=== PATIENT | female | born 1990 | race Caucasian/White ===

== ENCOUNTER 2016-06-11 08:21 | Emergency (ER) | payer MEDICAID, OTHER ==
[2016-06-11 08:37] VITALS: TEMP 97.4
--- NOTE | 2016-06-11 08:48 | ED.PDOC ---
History of Present Illness - General Chief Complaint: Respiratory Problem Stated Complaint: cough,congestion Time Seen by Provider: 06/11/16 08:42 Source: patient Additional Information: PT REPORTS 1 MONTH HISTORY OF COUGH/SOB DESPITE TWO ROUNDS OF ANTIBIOTICS PRESCRIBED BY HER PCP. PT DENIES FEVER, CHILLS, CHEST PAIN. - History of Present Illness Timing/Duration: getting worse Possible Cause: smoke exposure Improving Factors: nothing Associated Symptoms: cough, shortness of breath Allergies/Adverse Reactions: Allergies Penicillins Allergy (Verified 01/17/16 10:49) Home Medications: Ambulatory Orders Albuterol Sulfate Nebs [Proventil Nebs] 2.5 mg INH Q4HR PRN #90 vial 06/11/16 [place] Carbonate 300 mg PO TID 06/11/16 Prednisone 50 mg PO DAILY #5 tab 06/11/16 Sertraline HCl [Zoloft] 50 mg PO DAILY 06/11/16 Trazodone HCl 50 mg PO BEDTIME 06/11/16 Review of Systems - Review of Systems Constitutional: Denies: chills, fever EENTM: Denies: nose congestion, throat pain Respiratory: States: see HPI, cough, short of breath Cardiology: Denies: chest pain, palpitations Gastrointestinal/Abdominal: Denies: abdominal pain, diarrhea, nausea Musculoskeletal: Denies: joint pain, joint swelling Skin: Denies: change in color, lesions Neurological: Denies: headache, numbness Past Medical History (General) - Patient Medical History Hx Seizures: No Hx Stroke: No Hx Dementia: No Hx Asthma: No Hx of COPD: No Hx Cardiac Disorders: No Hx Congestive Heart Failure: No Hx Pacemaker: No Hx Hypertension: No Hx Thyroid Disease: No Hx Diabetes: No Hx Gastroesophageal Reflux: No Hx Renal Disease: No Hx Cancer: No Hx of HIV: No Hx Hepatitis C: No Hx MRSA: No - Vaccination History Hx Tetanus, Diphtheria Vaccination: No Hx Influenza Vaccination: No Hx Pneumococcal Vaccination: No - Social History Hx Tobacco Use: Yes - 1/2PPD Hx Chewing Tobacco Use: No Hx Alcohol Use: No Hx Substance Use: No Hx Substance Use Treatment: No Hx Depression: No Hx Physical Abuse: No Hx Emotional Abuse: No Hx Suspected Abuse: No - Female History Patient is a Female of Child Bearing Age (10 -59 yrs old): Yes Hx Last Menstrual Period: 04/27/14 Patient : No Expected Date of Delivery:: 01/22/15 Family Medical History - Family History Maternal Grandparents Family History: No Known Living Status: Still Living Hx Family Hypertension: Yes Hx Family Diabetes: Yes - type 2 Hx Family;Other: Pt has no other known historys Mother Family History: No Known Physical Exam - Physical Exam General Appearance: Alert, Comfortable Eye Exam: bilateral normal ENT Exam: normal ENT inspection Neck: full range of motion, supple Respiratory: other - COARSE BREATH SOUNDS THROUGHOUT Cardiovascular/Chest: regular rate, rhythm, no murmur Gastrointestinal/Abdominal: non tender, soft Extremity: normal inspection Neurologic: normal mood/affect, oriented x 3 Skin Exam: normal color, warm/dry Progress - Progress Progress: 06/11/16 09:25 PT REPORTS SIGNIFICANT IMPROVEMENT IN SYMPTOMS AFTER DUONEB IN THE ED. PT COUNSELED ABOUT SMOKING CESSATION. PT AGREES TO ATTEMPT TO QUIT SMOKING. Departure - Departure Clinical Impression: Acute bronchitis, Tobacco abuse Time of Disposition: 09:29 Disposition: Discharge to Home or Self Care Condition: Good Departure Forms: ED Discharge - Pt. Copy Instructions: DI for Acute Bronchitis Diet: resume usual diet Activity: increase activity as tolerated Prescriptions: Albuterol Sulfate Nebs [Proventil Nebs] 2.5 mg INH Q4HR PRN #90 vial PRN Reason: Shortness Of Breath/Wheezing Prednisone 50 mg PO DAILY #5 tab Home Medications: Ambulatory Orders Albuterol Sulfate Nebs [Proventil Nebs] 2.5 mg INH Q4HR PRN #90 vial 06/11/16 [place] Carbonate 300 mg PO TID 06/11/16 Prednisone 50 mg PO DAILY #5 tab 06/11/16 Sertraline HCl [Zoloft] 50 mg PO DAILY 06/11/16 Trazodone HCl 50 mg PO BEDTIME 06/11/16
--- NOTE | 2016-06-11 09:03 | RAD ---
Study: Frontal and Lateral Views of the Chest. Indication: COUGH/SOB Comparison: None Impression: Heart size normal. Lungs hyper expanded but clear. No acute osseous abnormality. Electronically signed by: Clark Duffy MD 06/11/2016 09:01
[2016-06-11] MEDS: IPRATROPIUM/ALBUTEROL 3 ML VIAL NEB ONE (09:15)
[2016-06-11] MEDS: methylPREDNISolone SODIUM SUC 125 MG/2 ML VIAL IM ONE (09:41)
[2016-06-11 09:55] VITALS: BP 118/70; O2SAT 98
== END 2016-06-11 09:50 | disposition home or self-care (01) ==
LOC: ER 08:21
DX: J20.9 Acute bronchitis, unspecified (principal); F17.200 Nicotine dependence, unspecified, uncomplicated; Z88.0 Allergy status to penicillin; Z79.899 Other long term (current) drug therapy
CPT/HCPCS: 71020; 94640; J2930; J7620

== ENCOUNTER 2016-06-25 08:55 | Emergency (ER) | payer OTHER ==
[2016-06-25] MEDS ORDERED: IPRATROPIUM/ALBUTEROL 3 ML VIAL NEB ONE (10:34)
--- NOTE | 2016-06-25 10:38 | ED.PDOC ---
History of Present Illness - General Chief Complaint: Respiratory Problem Stated Complaint: Increased Difficulty breathing x 1 week; Headache Time Seen by Provider: 06/25/16 10:26 Source: patient, RN notes reviewed, Vital Signs reviewed Exam Limitations: no limitations - History of Present Illness Initial Comments: Patient is a 25 y/o female who has had a cough and shortness of breath x 1 month. She is worsening. She has been on several antibiotics with no improvement. She does smoke. No history of asthma. She did not get a flu shot this year. Timing/Duration: getting worse, other - 1 month Severity: moderate Improving Factors: nothing Worsening Factors: nothing Associated Symptoms: cough, fever/chills, headaches Allergies/Adverse Reactions: Allergies Penicillins Allergy (Verified 01/17/16 10:49) Home Medications: Ambulatory Orders Albuterol Sulfate Nebs [Proventil Nebs] 2.5 mg INH Q4HR PRN #90 vial 06/11/16 [place] Carbonate 300 mg PO TID 06/11/16 Sertraline HCl [Zoloft] 50 mg PO DAILY 06/11/16 Trazodone HCl 50 mg PO BEDTIME 06/11/16 Albuterol Sulfate [Proair Hfa] 2 puff INH Q4H PRN #1 06/25/16 Benzonatate 200 mg PO TID PRN #30 cap 06/25/16 Methylprednisolone [Medrol Dose Jerrell] 4 mg PO DAILY #1 pack 06/25/16 Review of Systems - Review of Systems Constitutional: States: chills, fever EENTM: States: nose congestion, throat pain Respiratory: States: cough, short of breath, wheezing Cardiology: States: no symptoms reported Gastrointestinal/Abdominal: States: nausea Genitourinary: States: no symptoms reported Musculoskeletal: States: no symptoms reported Skin: States: no symptoms reported Neurological: States: headache Endocrine: States: no symptoms reported Hematologic/Lymphatic: States: no symptoms reported All other Systems: Reviewed and Negative Past Medical History (General) - Patient Medical History Hx Seizures: No Hx Stroke: No Hx Dementia: No Hx Asthma: No Hx of COPD: No Hx Cardiac Disorders: No Hx Congestive Heart Failure: No Hx Pacemaker: No Hx Hypertension: No Hx Thyroid Disease: No Hx Diabetes: No Hx Gastroesophageal Reflux: No Hx Renal Disease: No Hx Cancer: No Hx of HIV: No Hx Hepatitis C: No Hx MRSA: No Surgical History: noncontributory - Vaccination History Hx Tetanus, Diphtheria Vaccination: No Hx Influenza Vaccination: No Hx Pneumococcal Vaccination: No Immunizations Up to Date: Yes - Social History Hx Tobacco Use: Yes Hx Chewing Tobacco Use: No Hx Alcohol Use: No Hx Substance Use: No Hx Substance Use Treatment: No Hx Depression: No Feels Threatened In Home Enviroment: No Feels Threatened In a Relationship: No Hx Physical Abuse: No Hx Emotional Abuse: No Hx Suspected Abuse: No - Activities of Daily Living Hospice Agency (if applicable):: None - Female History Patient is a Female of Child Bearing Age (10 -59 yrs old): Yes Hx Last Menstrual Period: 04/27/14 Patient : No Expected Date of Delivery:: 01/22/15 Family Medical History - Family History Maternal Grandparents Family History: No Known Living Status: Still Living Hx Family Hypertension: Yes Hx Family Diabetes: Yes - type 2 Hx Family;Other: Pt has no other known historys Mother Family History: No Known Physical Exam - Physical Exam General Appearance: Alert, Comfortable, No apparent distress Eye Exam: bilateral normal Ears, Nose, Throat: hearing grossly normal, normal ENT inspection Neck: full range of motion, lymphadenopathy (R), lymphadenopathy (L) Respiratory: no respiratory distress, no accessory muscle use, decreased breath sounds, wheezing Cardiovascular/Chest: regular rate, rhythm, no edema, no gallop, no murmur Gastrointestinal/Abdominal: normal bowel sounds, non tender, soft, no organomegaly Back Exam: normal inspection Extremity: normal range of motion, non-tender, normal inspection, no pedal edema Neurologic: alert, normal mood/affect, oriented x 3 Skin Exam: normal color, warm/dry Progress - Results/Orders Results/Orders: 06/25/16 09:20 Temperature 98.6 F Pulse Rate [L 76 Arm] Respiratory 18 Rate Blood Pressure 128/78 [R Arm] O2 Sat by Pulse 96 Oximetry 06/25/16 09:18 STREP A SCREEN - NEG Influenza A and B - NEG 06/25/16 10:35 Chest,2 Views [RAD] Stat - EKG/XRAY/CT XRAY: chest Xray Comments: Clear CT Ordered: No CT Interpretation Call Back: No Departure - Departure Clinical Impression: Upper respiratory infection Qualifiers: URI type: unspecified viral URI Qualifier Code: (J06.9) Acute upper respiratory infection, unspecified Reactive airway disease Qualifiers: Asthma severity: mild intermittent Asthma complication type: uncomplicated Qualifier Code: (J45.20) Mild intermittent asthma, uncomplicated Time of Disposition: 11:54 Disposition: Discharge to Home or Self Care Condition: Fair Departure Forms: ED Discharge - Pt. Copy, Patient Portal Self Enrollment Instructions: Reactive Airway Disease-Adult, DI for Reactive Airway Disease- Adult Diet: resume usual diet Prescriptions: Benzonatate 200 mg PO TID PRN #30 cap PRN Reason: Cough Methylprednisolone [Medrol Dose Jerrell] 4 mg PO DAILY #1 pack Albuterol Sulfate [Proair Hfa] 2 puff INH Q4H PRN #1 PRN Reason: Difficulty Breathing Home Medications: Ambulatory Orders Albuterol Sulfate Nebs [Proventil Nebs] 2.5 mg INH Q4HR PRN #90 vial 06/11/16 [place] Carbonate 300 mg PO TID 06/11/16 Sertraline HCl [Zoloft] 50 mg PO DAILY 06/11/16 Trazodone HCl 50 mg PO BEDTIME 06/11/16 Albuterol Sulfate [Proair Hfa] 2 puff INH Q4H PRN #1 06/25/16 Benzonatate 200 mg PO TID PRN #30 cap 06/25/16 Methylprednisolone [Medrol Dose Jerrell] 4 mg PO DAILY #1 pack 06/25/16 Additional Instructions: Follow up with PCP if symptoms persist or ED if symptoms worsen.
--- NOTE | 2016-06-25 11:23 | RAD ---
EXAM DESCRIPTION: XR CHEST 2 VIEWS CLINICAL HISTORY: cough/shortness of breath COMPARISON: June 11, 2016 TECHNIQUE: PA/lateral FINDINGS: There is no cardiac or pulmonary abnormality. The lungs are clear. There is no effusion. IMPRESSION: 1. Normal two-view chest Electronically signed by: Teddy Chandra MD 06/25/2016 11:21
[2016-06-25] MEDS ORDERED: methylPREDNISolone SODIUM SUC 125 MG/2 ML VIAL IM ONE (11:51)
[2016-06-25 12:50] VITALS: BP 109/72; TEMP 99.2; O2SAT 91
== END 2016-06-25 11:30 | disposition home or self-care (01) ==
LOC: ER 08:55
DX: J45.20 Mild intermittent asthma, uncomplicated (principal); J06.9 Acute upper respiratory infection, unspecified; F17.200 Nicotine dependence, unspecified, uncomplicated; Z83.3 Family history of diabetes mellitus; Z82.49 Family history of ischemic heart disease and other diseases of the circulatory system; Z79.899 Other long term (current) drug therapy; Z88.0 Allergy status to penicillin
CPT/HCPCS: 71020; 87070; 87502; 87651; 94640; J2930; J7620

== ENCOUNTER 2016-12-17 10:00 | Emergency (ER) | payer MEDICAID ==
[2016-12-17 10:16] VITALS: TEMP 98.6
[2016-12-17] MEDS ORDERED: NEOMYCIN-BACITRACIN-POLYMYXIN 0.9 GM UD TOP ONE (11:06)
--- NOTE | 2016-12-17 11:06 | ED.PDOC ---
History of Present Illness - General Chief Complaint: Laceration Stated Complaint: laceration Time Seen by Provider: 12/17/16 11:00 Source: patient Exam Limitations: no limitations - History of Present Illness Initial Comments: Karne Marmolejo 26 y/o female stated accidentally injure left index finger with knife cutting veggies at home. Timing/Duration: just prior to arrival Severity: mild Location: none - left index finger Improving Factors: nothing Worsening Factors: movement Associated Symptoms: denies symptoms Allergies/Adverse Reactions: Allergies Penicillins Allergy (Verified 12/17/16 10:16) Home Medications: Ambulatory Orders Albuterol Sulfate Nebs [Proventil Nebs] 2.5 mg INH Q4HR PRN #90 vial 06/11/16 [place] Carbonate 300 mg PO TID 06/11/16 Sertraline HCl [Zoloft] 50 mg PO DAILY 06/11/16 Trazodone HCl 50 mg PO BEDTIME 06/11/16 Albuterol Sulfate [Proair Hfa] 2 puff INH Q4H PRN #1 06/25/16 Benzonatate 200 mg PO TID PRN #30 cap 06/25/16 Methylprednisolone [Medrol Dose Jerrell] 4 mg PO DAILY #1 pack 06/25/16 Review of Systems - Review of Systems Constitutional: States: no symptoms reported EENTM: States: no symptoms reported Respiratory: States: no symptoms reported Cardiology: States: no symptoms reported Gastrointestinal/Abdominal: States: no symptoms reported Genitourinary: States: no symptoms reported Musculoskeletal: States: no symptoms reported Skin: States: see HPI Past Medical History (General) - Patient Medical History Hx Seizures: No Hx Stroke: No Hx Dementia: No Hx Asthma: No Hx of COPD: No Hx Cardiac Disorders: No Hx Congestive Heart Failure: No Hx Pacemaker: No Hx Hypertension: No Hx Thyroid Disease: No Hx Diabetes: No Hx Gastroesophageal Reflux: No Hx Renal Disease: No Hx Cancer: No Hx of HIV: No Hx Hepatitis C: No Hx MRSA: No Surgical History: no surgical history - Vaccination History Hx Tetanus, Diphtheria Vaccination: No Hx Influenza Vaccination: No Hx Pneumococcal Vaccination: No - Social History Hx Tobacco Use: Yes - uses vapor cigarette Hx Chewing Tobacco Use: No Hx Alcohol Use: No Hx Substance Use: No Hx Substance Use Treatment: No Hx Depression: No Hx Physical Abuse: No Hx Emotional Abuse: No Hx Suspected Abuse: No - Activities of Daily Living Hospice Agency (if applicable):: None - Female History Patient is a Female of Child Bearing Age (10 -59 yrs old): Yes Hx Last Menstrual Period: 12/03/16 Patient : No Family Medical History - Family History Maternal Grandparents Family History: No Known Living Status: Still Living Hx Family Hypertension: Yes Hx Family Diabetes: Yes - type 2 Hx Family;Other: Pt has no other known historys Mother Family History: No Known Physical Exam - Physical Exam General Appearance: Alert, Comfortable, No apparent distress Eyes, Ears, Nose, Throat Exam: PERRL/EOMI, normal ENT inspection Neck: non-tender Cardiovascular/Chest: normal peripheral pulses, regular rate, rhythm, no murmur Respiratory: chest non-tender, lungs clear Gastrointestinal/Abdominal: non tender, soft Extremity: normal range of motion, non-tender Skin Exam: warm/dry, normal color Skin Problem Location: other - finger index left Skin Character: other - superficial laceration skin Lymphatic: no adenopathy Progress - Results/Orders Results/Orders: wound cleanse with antiseptic applied xerofoam bandage covererd with 2x2 wrapped with coban Departure - Departure Clinical Impression: Minor skin laceration Time of Disposition: 11:22 Disposition: Discharge to Home or Self Care Condition: Good Departure Forms: ED Discharge - Pt. Copy, Patient Portal Self Enrollment Instructions: Minor Wounds (Alternative Therapy) Referrals: Guillermo Aguilar MD [Primary Care Provider] - 1-2 Weeks Home Medications: Ambulatory Orders Albuterol Sulfate Nebs [Proventil Nebs] 2.5 mg INH Q4HR PRN #90 vial 06/11/16 [place] Carbonate 300 mg PO TID 06/11/16 Sertraline HCl [Zoloft] 50 mg PO DAILY 06/11/16 Trazodone HCl 50 mg PO BEDTIME 06/11/16 Albuterol Sulfate [Proair Hfa] 2 puff INH Q4H PRN #1 06/25/16 Benzonatate 200 mg PO TID PRN #30 cap 06/25/16 Methylprednisolone [Medrol Dose Jerrell] 4 mg PO DAILY #1 pack 06/25/16 Additional Instructions: Keep wound dressing for one week,replace if it gets wet or dirty
[2016-12-17] MEDS ORDERED: TETANUS,DIPHTHERIA,PERTUSSIS 1 EA SYG IM ONE (11:23)
[2016-12-17 11:47] VITALS: BP 143/65; O2SAT 99
== END 2016-12-17 11:48 | disposition home or self-care (01) ==
LOC: ER 10:00
DX: S61.211A Laceration without foreign body of left index finger without damage to nail, initial encounter (principal); F17.210 Nicotine dependence, cigarettes, uncomplicated; Z23 Encounter for immunization; Z79.899 Other long term (current) drug therapy; W26.0XXA Contact with knife, initial encounter; Y93.G1 Activity, food preparation and clean up; Y92.009 Unspecified place in unspecified non-institutional (private) residence as the place of occurrence of the external cause

== ENCOUNTER 2017-01-19 10:32 | Emergency (ER) | payer OTHER ==
--- NOTE | 2017-01-19 11:00 | ED.PDOC ---
History of Present Illness - General Chief Complaint: Abdominal Pain Stated Complaint: abdominal pain Time Seen by Provider: 01/19/17 10:55 Source: patient Exam Limitations: no limitations Additional Information: C/O N/V/D. - History of Present Illness Initial Comments: WATERY Timing/Duration: other - 3 DAYS Severity: moderate Associated Symptoms: loss of appetite Allergies/Adverse Reactions: Allergies Penicillins Allergy (Verified 01/19/17 10:48) Home Medications: Ambulatory Orders Albuterol Sulfate Nebs [Proventil Nebs] 2.5 mg INH Q4HR PRN #90 vial 06/11/16 [place] Carbonate 300 mg PO TID 06/11/16 Sertraline HCl [Zoloft] 50 mg PO DAILY 06/11/16 Trazodone HCl 50 mg PO BEDTIME 06/11/16 Albuterol Sulfate [Proair Hfa] 2 puff INH Q4H PRN #1 06/25/16 Benzonatate 200 mg PO TID PRN #30 cap 06/25/16 Methylprednisolone [Medrol Dose [place]] 4 mg PO DAILY #1 pack 06/25/16 Ciprofloxacin [Cipro] 500 mg PO BID #20 ml 01/19/17 Review of Systems - Review of Systems Constitutional: States: chills, other - DIZZINESS WITH STANDING. Denies: fever EENTM: States: no symptoms reported Respiratory: States: no symptoms reported Cardiology: States: no symptoms reported Gastrointestinal/Abdominal: States: abdominal pain, diarrhea, nausea, vomiting, other - WATERY STOOLS NO BLOOD, DIFFUSE ABD CRAMPING Genitourinary: States: no symptoms reported Musculoskeletal: States: no symptoms reported Skin: States: no symptoms reported Neurological: States: no symptoms reported Endocrine: States: no symptoms reported Past Medical History (General) - Patient Medical History Hx Seizures: No Hx Stroke: No Hx Dementia: No Hx Asthma: No Hx of COPD: No Hx Cardiac Disorders: No Hx Congestive Heart Failure: No Hx Pacemaker: No Hx Hypertension: No Hx Thyroid Disease: No Hx Diabetes: No Hx Gastroesophageal Reflux: No Hx Renal Disease: No Hx Cancer: No Hx of HIV: No Hx Hepatitis C: No Hx MRSA: No Surgical History: other - Vaccination History Hx Tetanus, Diphtheria Vaccination: No Hx Influenza Vaccination: No Hx Pneumococcal Vaccination: No - Social History Hx Tobacco Use: Yes - uses vapor cigarette Hx Chewing Tobacco Use: No Hx Alcohol Use: No Hx Substance Use: No Hx Substance Use Treatment: No Hx Depression: No Hx Physical Abuse: No Hx Emotional Abuse: No Hx Suspected Abuse: No - Female History Patient is a Female of Child Bearing Age (10 -59 yrs old): Yes Hx Last Menstrual Period: 12/03/16 Patient : No Expected Date of Delivery:: 01/22/15 - Triage Comment ED Triage Comment: LMP "two weeks ago" Family Medical History - Family History Maternal Grandparents Family History: No Known Living Status: Still Living Hx Family Hypertension: Yes Hx Family Diabetes: Yes - type 2 Hx Family;Other: Pt has no other known historys Mother Family History: No Known Physical Exam - Physical Exam General Appearance: Alert, Comfortable, No apparent distress Eye Exam: bilateral normal Ears, Nose, Throat: hearing grossly normal, other - DRY MUCOUS MEMBRANES Neck: non-tender Respiratory: lungs clear, normal breath sounds, no respiratory distress Cardiovascular/Chest: no murmur, tachycardia Gastrointestinal/Abdominal: non tender, soft, no organomegaly, other - HYPOACTIVE BS Back Exam: normal inspection, no CVA tenderness Extremity: normal range of motion, non-tender, normal inspection Neurologic: alert, oriented x 3 Skin Exam: normal color, warm/dry Lymphatic: no adenopathy Progress - Progress Progress: 01/19/17 12:34 FEELS MUCH BETTER, STOOL RESULTS PENDING 01/19/17 13:35 STILL FEELS MUCH BETTER. RESULTS REVIEWED WITH PT. Departure - Departure Clinical Impression: Colitis Time of Disposition: 13:35 Disposition: Discharge to Home or Self Care Condition: Excellent Departure Forms: ED Discharge - Pt. Copy, Patient Portal Self Enrollment Instructions: DI for Colitis Diet: full liquid diet Referrals: Guillermo Aguilar MD [Primary Care Provider] - 1-2 Weeks Prescriptions: Ciprofloxacin [Cipro] 500 mg PO BID #20 ml Home Medications: Ambulatory Orders Albuterol Sulfate Nebs [Proventil Nebs] 2.5 mg INH Q4HR PRN #90 vial 06/11/16 [place] Carbonate 300 mg PO TID 06/11/16 Sertraline HCl [Zoloft] 50 mg PO DAILY 06/11/16 Trazodone HCl 50 mg PO BEDTIME 06/11/16 Albuterol Sulfate [Proair Hfa] 2 puff INH Q4H PRN #1 06/25/16 Benzonatate 200 mg PO TID PRN #30 cap 06/25/16 Methylprednisolone [Medrol Dose Jerrell] 4 mg PO DAILY #1 pack 06/25/16 Ciprofloxacin [Cipro] 500 mg PO BID #20 ml 01/19/17
[2017-01-19] MEDS ORDERED: SODIUM CHLORIDE 0.9% 1000ML 1,000 ML IVS ONE (11:01)
[2017-01-19 12:40] VITALS: O2SAT 98
[2017-01-19 13:53] VITALS: BP 101/72; TEMP 97.6
== END 2017-01-19 13:53 | disposition home or self-care (01) ==
LOC: ER 10:32
DX: K52.9 Noninfective gastroenteritis and colitis, unspecified (principal); F17.210 Nicotine dependence, cigarettes, uncomplicated; Z88.0 Allergy status to penicillin
CPT/HCPCS: 36415; 80053; 81001; 83630; 85025; 87045; 87046; 87324; 87449; J7030

== ENCOUNTER 2017-02-19 13:43 | Emergency (ER) | payer OTHER ==
[2017-02-19 14:10] VITALS: TEMP 97.5
[2017-02-19] MEDS ORDERED: ONDANSETRON ODT 8 MG TAB SL ONE (14:11)
[2017-02-19] MEDS ORDERED: ALUMINUM & MAGNESIUM HYDROXIDE 30 ML UD PO ONE (14:11)
--- NOTE | 2017-02-19 14:38 | RAD ---
EXAM DESCRIPTION: Chest,2 Views CLINICAL HISTORY: cough 1 week COMPARISON: June 25, 2016 FINDINGS: Frontal and lateral views of the chest. Cardiac silhouette and pulmonary vascularity are within normal limits. Lungs are clear without focal consolidations. No pleural effusion. No pneumothorax. No acute osseous abnormality. IMPRESSION: No radiographic evidence of acute cardiopulmonary disease. Electronically signed by: Brian Sims MD 02/19/2017 2:36 PM CDT
[2017-02-19 14:42] VITALS: O2SAT 98
--- NOTE | 2017-02-19 15:18 | ED.PDOC ---
History of Present Illness - General Chief Complaint: Respiratory Problem Stated Complaint: cough and shortness of breath x1.5 weeks Time Seen by Provider: 02/19/17 13:59 Source: patient Exam Limitations: no limitations - History of Present Illness Initial Comments: the patient is a 26-year-old female presenting to the emergency room secondary to cough for the last 10 days. She also has thrown up twice in the last 2 days. She is not really feeling short of breath. She does get anxious when she coughs hard however. No syncope or near-syncope. No chest pain. She has not been smoking but she has been vaping. Timing/Duration: 1 week Severity: mild Improving Factors: nothing Worsening Factors: nothing Associated Symptoms: loss of appetite, malaise, nausea/vomiting Allergies/Adverse Reactions: Allergies Penicillins Allergy (Verified 01/19/17 10:48) Home Medications: Ambulatory Orders Albuterol Sulfate Nebs [Proventil Nebs] 2.5 mg INH Q4HR PRN #90 vial 06/11/16 [place] Carbonate 300 mg PO TID 06/11/16 Sertraline HCl [Zoloft] 50 mg PO DAILY 06/11/16 Trazodone HCl 50 mg PO BEDTIME 06/11/16 Albuterol Sulfate [Proair Hfa] 2 puff INH Q4H PRN #1 06/25/16 Benzonatate 200 mg PO TID PRN #30 cap 06/25/16 Methylprednisolone [Medrol Dose Jerrell] 4 mg PO DAILY #1 pack 06/25/16 Ciprofloxacin [Cipro] 500 mg PO BID #20 ml 01/19/17 Azithromycin 250 mg PO DAILY #5 tab 02/19/17 predniSONE [Prednisone] 20 mg PO DAILY #5 tab 02/19/17 Review of Systems - Review of Systems Constitutional: States: malaise EENTM: States: nose congestion Respiratory: States: cough, short of breath - mild Cardiology: States: no symptoms reported Gastrointestinal/Abdominal: States: nausea, vomiting Genitourinary: States: no symptoms reported Musculoskeletal: States: no symptoms reported Skin: States: no symptoms reported Neurological: States: anxiety Endocrine: States: no symptoms reported All other Systems: No Change from Baseline Past Medical History (General) - Patient Medical History Hx Seizures: No Hx Stroke: No Hx Dementia: No Hx Asthma: No Hx of COPD: No Hx Cardiac Disorders: No Hx Congestive Heart Failure: No Hx Pacemaker: No Hx Hypertension: No Hx Thyroid Disease: No Hx Diabetes: No Hx Gastroesophageal Reflux: No Hx Renal Disease: No Hx Cancer: No Hx of HIV: No Hx Hepatitis C: No Hx MRSA: No Surgical History: other - Vaccination History Hx Tetanus, Diphtheria Vaccination: No Hx Influenza Vaccination: No Hx Pneumococcal Vaccination: No - Social History Hx Tobacco Use: Yes - uses vapor cigarette Hx Chewing Tobacco Use: No Hx Alcohol Use: No Hx Substance Use: No Hx Substance Use Treatment: No Hx Depression: No Hx Physical Abuse: No Hx Emotional Abuse: No Hx Suspected Abuse: No - Female History Hx Last Menstrual Period: 12/03/16 Patient : No Expected Date of Delivery:: 01/22/15 Family Medical History - Family History Maternal Grandparents Family History: No Known Living Status: Still Living Hx Family Hypertension: Yes Hx Family Diabetes: Yes - type 2 Hx Family;Other: Pt has no other known historys Mother Family History: No Known Physical Exam - Physical Exam General Appearance: Alert, Comfortable, No apparent distress Eye Exam: bilateral normal Ears, Nose, Throat: hearing grossly normal, normal ENT inspection, normal pharynx Neck: non-tender, full range of motion, supple Respiratory: lungs clear, normal breath sounds, no respiratory distress, no accessory muscle use Cardiovascular/Chest: normal peripheral pulses, regular rate, rhythm, no edema Peripheral Pulses: radial,right: 2+, radial,left: 2+, dorsalis pedis,right: 2+, dorsalis pedis,left: 2+ Gastrointestinal/Abdominal: non tender, soft Rectal Exam: deferred Back Exam: normal inspection, no CVA tenderness Extremity: normal range of motion, non-tender, normal inspection, no pedal edema Neurologic: acute care surgeon II-XII nml as tested, alert, oriented x 3, other - poor eye contact Skin Exam: normal color Comments: Vital Signs - 24 hr 02/19/17 02/19/17 02/19/17 13:45 14:05 14:40 Temperature 97.5 F L Pulse Rate [ 81 81 left brachial] Respiratory 20 20 20 Rate Blood Pressure 108/77 107/66 [right brachial ] O2 Sat by Pulse 96 98 Oximetry Progress - Progress Progress: 02/19/17 15:19 the patient's a 26-year-old female presenting to the emergency room with what is most likely a bronchitis or laryngitis. It is most likely viral however we will cover for atypical bacterial pathogens with low doses of zithromycin. The patient will also be given 5 days of oral prednisone at 20 mg daily. She needs to increase her fluid intake. For the next 2 days she needs to reduce her lithium dose by half in the evening. ER warnings are given for any worsening. Maalox can be used for any gastritis symptoms. she should follow-up with her primary care doctor early next week. 02/19/17 15:23 - Results/Orders Results/Orders: x-ray of the chest shows no acute pathology. Departure - Departure Clinical Impression: Bronchitis Disposition: Discharge to Home or Self Care Condition: Fair Departure Forms: ED Discharge - Pt. Copy, Patient Portal Self Enrollment Instructions: DI for Acute Bronchitis Diet: regular diet Activity: increase activity as tolerated Referrals: Guillermo Aguilar MD [Primary Care Provider] - 1-2 Weeks Prescriptions: Azithromycin 250 mg PO DAILY #5 tab predniSONE [Prednisone] 20 mg PO DAILY #5 tab Home Medications: Ambulatory Orders Albuterol Sulfate Nebs [Proventil Nebs] 2.5 mg INH Q4HR PRN #90 vial 06/11/16 [place] Carbonate 300 mg PO TID 06/11/16 Sertraline HCl [Zoloft] 50 mg PO DAILY 06/11/16 Trazodone HCl 50 mg PO BEDTIME 06/11/16 Albuterol Sulfate [Proair Hfa] 2 puff INH Q4H PRN #1 06/25/16 Benzonatate 200 mg PO TID PRN #30 cap 06/25/16 Methylprednisolone [Medrol Dose Jerrell] 4 mg PO DAILY #1 pack 06/25/16 Ciprofloxacin [Cipro] 500 mg PO BID #20 ml 01/19/17 Azithromycin 250 mg PO DAILY #5 tab 02/19/17 predniSONE [Prednisone] 20 mg PO DAILY #5 tab 02/19/17 Additional Instructions: the patient's a 26-year-old female presenting to the emergency room with what is most likely a bronchitis or laryngitis. It is most likely viral however we will cover for atypical bacterial pathogens with low doses of zithromycin. The patient will also be given 5 days of oral prednisone at 20 mg daily. She needs to increase her fluid intake. For the next 2 days she needs to reduce her lithium dose by half in the evening. ER warnings are given for any worsening. Maalox can be used for any gastritis symptoms. she should follow-up with her primary care doctor early next week.
[2017-02-19 16:02] VITALS: BP 127/88
== END 2017-02-19 15:45 | disposition home or self-care (01) ==
LOC: ER 13:43
DX: J40 Bronchitis, not specified as acute or chronic (principal); F17.210 Nicotine dependence, cigarettes, uncomplicated; Z88.0 Allergy status to penicillin; Z79.899 Other long term (current) drug therapy

== ENCOUNTER 2017-03-17 11:48 | Emergency (ER) | payer OTHER ==
[2017-03-17] MEDS ORDERED: LACTATED RINGERS 1,000 ML IVS ONE (11:59)
[2017-03-17 12:01] VITALS: TEMP 98.8
--- NOTE | 2017-03-17 12:01 | ED.PDOC ---
History of Present Illness - General Chief Complaint: Back Pain or Injury Stated Complaint: right sided back pain,dental pain Time Seen by Provider: 03/17/17 11:58 Source: patient Exam Limitations: no limitations - History of Present Illness Initial Comments: Karen Baxter 26 y/o female stated that she woke up this am with constant stabbing right flank pain non radiating ,no nausea or vomiting,no dysuria or hematuria,no fever ,or chills able to eat breakfast this am.Stated that she had ureteral stent on her right kidney in the past for kidney stone. Timing/Duration: 4-6 hours Severity: moderate Worsening Factors: nothing Associated Symptoms: other - see hpi Allergies/Adverse Reactions: Allergies Penicillins Allergy (Verified 01/19/17 10:48) Home Medications: Ambulatory Orders [place] Carbonate 300 mg PO TID 06/11/16 Trazodone HCl 50 mg PO BEDTIME 06/11/16 Acetamin W/Cod #3 Tab [Tylenol w/CODEINE #3] 1 ea PO Q6HRS PRN #10 tab 03/17/17 Clindamycin HCl [Cleocin] 300 mg PO BID #20 cap 03/17/17 Review of Systems - Review of Systems Genitourinary: States: see HPI All other Systems: Reviewed and Negative, No Change from Baseline Past Medical History (General) - Patient Medical History Hx Seizures: No Hx Stroke: No Hx Dementia: No Hx Asthma: No Hx of COPD: No Hx Cardiac Disorders: No Hx Congestive Heart Failure: No Hx Pacemaker: No Hx Hypertension: No Hx Thyroid Disease: No Hx Diabetes: No Hx Gastroesophageal Reflux: No Hx Renal Disease: No Hx Cancer: No Hx of HIV: No Hx Hepatitis C: No Hx MRSA: No Hx Other PMH: Yes - bipolar and nephrolithiasis Surgical History: other - x 2;BTL - Vaccination History Hx Tetanus, Diphtheria Vaccination: No Hx Influenza Vaccination: No Hx Pneumococcal Vaccination: No - Social History Hx Tobacco Use: Yes - uses vapor cigarette Hx Chewing Tobacco Use: No Hx Alcohol Use: No Hx Substance Use: No Hx Substance Use Treatment: No Hx Depression: No Hx Physical Abuse: No Hx Emotional Abuse: No Hx Suspected Abuse: No - Activities of Daily Living Patient Lives Alone: No - family - Female History Hx Last Menstrual Period: 02/18/17 Patient : No Family Medical History - Family History Maternal Grandparents Family History: No Known Living Status: Still Living Hx Family Hypertension: Yes Hx Family Diabetes: Yes - type 2 Hx Family;Other: Pt has no other known historys Mother Family History: No Known Physical Exam - Physical Exam General Appearance: Alert, No apparent distress Eye Exam: bilateral normal Ears, Nose, Throat: hearing grossly normal, normal ENT inspection, normal pharynx, other - dental decay right lower molar 3rd Neck: non-tender, supple Respiratory: chest non-tender, lungs clear Cardiovascular/Chest: normal peripheral pulses, regular rate, rhythm, no murmur Peripheral Pulses: radial,right: 2+, radial,left: 2+ Gastrointestinal/Abdominal: normal bowel sounds, non tender, soft, no organomegaly Back Exam: normal inspection, no vertebral tenderness, CVA tenderness (R) Extremity: no pedal edema, no calf tenderness Neurologic: alert, normal mood/affect, oriented x 3 Skin Exam: normal color Lymphatic: no adenopathy Progress - Progress Progress: 03/17/17 12:21 Vital Signs - 8 hr 03/17/17 11:57 Temperature 98.8 F Pulse Rate [ 90 Left Brachial] Respiratory 20 Rate Blood Pressure 124/69 [Left Arm] O2 Sat by Pulse 99 Oximetry 03/17/17 13:05 Laboratory Tests 03/17/17 03/17/17 03/17/17 12:10 12:10 12:10 WBC 8.9 RBC 4.64 Hgb 13.8 Hct 40.6 MCV 87.5 MCH 29.8 MCHC 34.1 RDW 13.4 Plt Count 313 MPV 8.0 Absolute Neuts (auto) 6.30 Absolute Lymphs (auto) 2.10 Absolute Monos (auto) 0.50 Absolute Eos (auto) 0.10 Absolute Basos (auto) 0.00 Neutrophils % 70.0 Lymphocytes % 23.3 Monocytes % 5.4 Eosinophils % 0.8 L Basophils % 0.5 Sodium 136 Potassium 3.9 Chloride 106 Carbon Dioxide 25 Anion Gap 8.9 L BUN 13 Creatinine 0.51 L BUN/Creatinine Ratio 25.5 H Random Glucose 87 Serum Osmolality 271.4 L Calcium 9.2 Total Bilirubin 0.5 AST 20 ALT 15 Alkaline Phosphatase 80 Serum Total Protein 7.7 Albumin 4.0 Globulin 3.7 H Albumin/Globulin Ratio 1.1 Urine Color Urine Appearance Urine pH Ur Specific [place] Urine Protein Urine Glucose (UA) Urine Ketones Urine Blood Urine Nitrite Urine Bilirubin Urine Urobilinogen Ur Leukocyte Esterase Urine RBC Urine WBC Ur Epithelial Cells Urine Bacteria Urine HCG, Qual Urine Opiates Screen Negative Urine Barbiturates Negative Ur Phencyclidine Scrn Negative U Amphetamin/Meth Scrn Negative U Benzodiazepines Scrn Negative U Cocaine Metab Screen Negative U Cannabinoids Screen Negative 03/17/17 03/17/17 12:10 12:10 WBC RBC Hgb Hct MCV MCH MCHC RDW Plt Count MPV Absolute Neuts (auto) Absolute Lymphs (auto) Absolute Monos (auto) Absolute Eos (auto) Absolute Basos (auto) Neutrophils % Lymphocytes % Monocytes % Eosinophils % Basophils % Sodium Potassium Chloride Carbon Dioxide Anion Gap BUN Creatinine BUN/Creatinine Ratio Random Glucose Serum Osmolality Calcium Total Bilirubin AST ALT Alkaline Phosphatase Serum Total Protein Albumin Globulin Albumin/Globulin Ratio Urine Color Yellow Urine Appearance Clear Urine pH 5.5 Ur Specific [place] 1.020 Urine Protein Negative Urine Glucose (UA) Negative Urine Ketones Negative Urine Blood Negative Urine Nitrite Negative Urine Bilirubin Negative Urine Urobilinogen 0.2 Ur Leukocyte Esterase Negative Urine RBC 0 Urine WBC 0 Ur Epithelial Cells 1-3 Urine Bacteria 0 Urine HCG, Qual Negative Urine Opiates Screen Urine Barbiturates Ur Phencyclidine Scrn U Amphetamin/Meth Scrn U Benzodiazepines Scrn U Cocaine Metab Screen U Cannabinoids Screen Discuss all test results with patient specifically mentioning no trace of blood in urine or any signs suggestive of uti. Departure - Departure Clinical Impression: Flank pain, acute, Dental caries extending into pulp, History of nephrolithiasis Time of Disposition: 13:10 Disposition: Discharge to Home or Self Care Departure Forms: ED Discharge - Pt. Copy, Patient Portal Self Enrollment Instructions: DI for Low Back Pain Referrals: Guillermo Aguilar MD [Primary Care Provider] - 1-2 Weeks Prescriptions: Acetamin W/Cod #3 Tab [Tylenol w/CODEINE #3] 1 ea PO Q6HRS PRN #10 tab PRN Reason: Pain Clindamycin HCl [Cleocin] 300 mg PO BID #20 cap Home Medications: Ambulatory Orders [place] Carbonate 300 mg PO TID 06/11/16 Trazodone HCl 50 mg PO BEDTIME 06/11/16 Acetamin W/Cod #3 Tab [Tylenol w/CODEINE #3] 1 ea PO Q6HRS PRN #10 tab 03/17/17 Clindamycin HCl [Cleocin] 300 mg PO BID #20 cap 03/17/17 Additional Instructions: SOFT DIET ONLY UNTIL DENTAL PAIN BETTER;NEED TO FOLLOW UP WITH DENTIST ERINN
[2017-03-17] MEDS ORDERED: CLINDAMYCIN HCL CAP 150 MG CAP PO ONE (13:03)
[2017-03-17] MEDS ORDERED: ORPHENADRINE CITRATE 30 MG/ML AMP IV ONE (13:03)
[2017-03-17] MEDS ORDERED: HYDROcodone 10MG/APAP 325MG 1 EA TAB PO ONE (13:03)
[2017-03-17 13:45] VITALS: BP 127/80; O2SAT 100
== END 2017-03-17 13:45 | disposition home or self-care (01) ==
LOC: ER 11:48
DX: R10.9 Unspecified abdominal pain (principal); K02.9 Dental caries, unspecified; F31.9 Bipolar disorder, unspecified; Z87.442 Personal history of urinary calculi; F17.210 Nicotine dependence, cigarettes, uncomplicated; Z79.899 Other long term (current) drug therapy
CPT/HCPCS: 36415; 80053; 80178; 80307; 81001; 81025; 85025; J2360; J7120

== ENCOUNTER 2017-05-11 13:59 | Emergency (ER) | payer OTHER ==
[2017-05-11] MEDS ORDERED: ORPHENADRINE CITRATE 30 MG/ML AMP IM ONE (15:24)
[2017-05-11] MEDS ORDERED: KETOROLAC TROMETHAMINE INJ 60 MG/2 ML VIAL IM ONE (15:24)
[2017-05-11] MEDS ORDERED: traMADol 37.5MG/APAP 325MG 1 EA TAB PO ONE (15:25)
--- NOTE | 2017-05-11 16:44 | ED.PDOC ---
History of Present Illness - General Chief Complaint: Back Pain or Injury Stated Complaint: Back pain Time Seen by Provider: 05/11/17 15:24 Source: patient Exam Limitations: no limitations - History of Present Illness Initial Comments: PT PRESENTS TO THE ED WITH 4 DAY HHISTORY OF LOW BACK PAIN. PT DOES NOT RECALL ANY SPECIFIC INJURY OF TIME WHEN BACK PAIN BEGAN. PT HAS A HISTORY OF LOW BACK PAIN IN THE PAST BUT HAS NEVER BEEN DIAGNOSED WITH ANYTHING. Timing/Duration: days Quality/Severity: moderate, sharpness Back Pain Location: lumbar spine Method of Injury/Prior Injury: unknown Improving Factors: immobilization, rest Worsening Factors: movement Associated Symptoms: lower back pain Allergies/Adverse Reactions: Allergies Penicillins Allergy (Verified 05/11/17 14:51) Home Medications: Ambulatory Orders [place] Carbonate 300 mg PO TID 06/11/16 Trazodone HCl 50 mg PO BEDTIME 06/11/16 Cyclobenzaprine HCl [Flexeril] 10 mg PO Q6HR PRN #20 tab 05/11/17 Hydroxyzine Pamoate [Vistaril] 100 mg PO BID 05/11/17 Ibuprofen 800 mg PO Q8HR PRN #30 tab 05/11/17 Tramadol-Acetaminophen [Ultracet] 1 - 2 tab PO Q6HR PRN #30 tab 05/11/17 Review of Systems - Review of Systems Constitutional: Denies: chills, fever Respiratory: Denies: cough, short of breath Cardiology: Denies: chest pain, palpitations Musculoskeletal: States: see HPI, back pain. Denies: joint pain, joint swelling Neurological: Denies: paresthesia, tingling Past Medical History (General) - Patient Medical History Hx Seizures: No Hx Stroke: No Hx Dementia: No Hx Asthma: No Hx of COPD: No Hx Cardiac Disorders: No Hx Congestive Heart Failure: No Hx Pacemaker: No Hx Hypertension: No Hx Thyroid Disease: No Hx Diabetes: No Hx Gastroesophageal Reflux: No Hx Renal Disease: No Hx Cancer: No Hx of HIV: No Hx Hepatitis C: No Hx MRSA: No - Vaccination History Hx Tetanus, Diphtheria Vaccination: No Hx Influenza Vaccination: No Hx Pneumococcal Vaccination: No - Social History Hx Tobacco Use: - Uses E-cigs Hx Chewing Tobacco Use: No Hx Alcohol Use: No Hx Substance Use: No Hx Substance Use Treatment: No Hx Depression: Yes Hx Physical Abuse: No Hx Emotional Abuse: No Hx Suspected Abuse: No - Female History Patient is a Female of Child Bearing Age (10 -59 yrs old): Yes Hx Last Menstrual Period: 02/18/17 Patient : No Expected Date of Delivery:: 01/22/15 Family Medical History - Family History Maternal Grandparents Family History: No Known Living Status: Still Living Hx Family Hypertension: Yes Hx Family Diabetes: Yes - type 2 Hx Family;Other: Pt has no other known historys Mother Family History: No Known Physical Exam - Physical Exam General Appearance: Alert, Comfortable, No apparent distress Neck Exam: non-tender, full range of motion, normal alignment Back Exam: normal inspection, no CVA tenderness, vertebral tenderness - LUMBAR Extremity Exam: no evidence of injury Neurologic: no motor/sensory deficits, alert, normal mood/affect, oriented x 3 Skin Exam: normal color, warm/dry Progress - Progress Progress: 05/11/17 16:51 [PT REPORTS IMPROVEMENT IN SYMPTOMS AFTER TORADOL, NORFLEX, AND ULTRACET. Departure - Departure Clinical Impression: Low back pain Time of Disposition: 16:51 Disposition: Discharge to Home or Self Care Condition: Good Departure Forms: ED Discharge - Pt. Copy, Patient Portal Self Enrollment Referrals: Guillermo Aguilar MD [Primary Care Provider] - 1-5 Days Prescriptions: Cyclobenzaprine HCl [Flexeril] 10 mg PO Q6HR PRN #20 tab PRN Reason: Muscle Spasms Tramadol-Acetaminophen [Ultracet] 1 - 2 tab PO Q6HR PRN #30 tab PRN Reason: Pain Ibuprofen 800 mg PO Q8HR PRN #30 tab PRN Reason: Pain Home Medications: Ambulatory Orders [place] Carbonate 300 mg PO TID 06/11/16 Trazodone HCl 50 mg PO BEDTIME 06/11/16 Cyclobenzaprine HCl [Flexeril] 10 mg PO Q6HR PRN #20 tab 05/11/17 Hydroxyzine Pamoate [Vistaril] 100 mg PO BID 05/11/17 Ibuprofen 800 mg PO Q8HR PRN #30 tab 05/11/17 Tramadol-Acetaminophen [Ultracet] 1 - 2 tab PO Q6HR PRN #30 tab 05/11/17
[2017-05-11 19:23] VITALS: BP 118/72; TEMP 98.2; O2SAT 97
== END 2017-05-11 16:55 | disposition home or self-care (01) ==
LOC: ER 13:59
DX: M54.5 Low back pain (principal); F17.290 Nicotine dependence, other tobacco product, uncomplicated
CPT/HCPCS: J1885; J2360

== ENCOUNTER 2017-05-28 10:23 | Emergency (ER) | payer OTHER ==
[2017-05-28 10:45] VITALS: BP 128/69; TEMP 99; O2SAT 98
[2017-05-28] MEDS ORDERED: KETOROLAC TROMETHAMINE INJ 60 MG/2 ML VIAL IM ONE (10:56)
[2017-05-28] MEDS ORDERED: ORPHENADRINE CITRATE 30 MG/ML AMP IM ONE (10:57)
[2017-05-28] MEDS ORDERED: HYDROcodone 7.5MG/APAP 325MG 1 EA TAB PO ONE (10:57)
--- NOTE | 2017-05-28 11:00 | ED.PDOC ---
History of Present Illness - General Chief Complaint: Back Pain or Injury Time Seen by Provider: 05/28/17 10:39 Source: patient Exam Limitations: no limitations - History of Present Illness Initial Comments: PT PRESENTS TO THE ED WITH COMPLAINT OF LOW BACK PAIN THAT RADIATES DOWN BOTH LEGS FOR THE PAST WEEK. PT REPORTS A SIMILAR EPISODE IN THE PAST THAT RESOLVED SPONTANEOUSLY. Timing/Duration: 1 week Quality/Severity: moderate, burning, radiation Back Pain Location: lumbar spine, coccyx Back Pain Radiation: upper legs Improving Factors: immobilization, rest Worsening Factors: movement Associated Symptoms: denies symptoms Allergies/Adverse Reactions: Allergies Penicillins Allergy (Verified 05/11/17 14:51) Home Medications: Ambulatory Orders [place] Carbonate 300 mg PO TID 06/11/16 Trazodone HCl 50 mg PO BEDTIME 06/11/16 Cyclobenzaprine HCl [Flexeril] 10 mg PO Q6HR PRN #20 tab 05/11/17 Hydroxyzine Pamoate [Vistaril] 100 mg PO BID 05/11/17 Ibuprofen 800 mg PO Q8HR PRN #30 tab 05/11/17 Tramadol-Acetaminophen [Ultracet] 1 - 2 tab PO Q6HR PRN #30 tab 05/11/17 Acetaminophen W/ Codeine [Tylenol W/ CODEINE #3] 1 ea PO Q4HR PRN #24 05/28/17 Cyclobenzaprine HCl [Flexeril] 10 mg PO Q6HR PRN #20 tab 05/28/17 Ibuprofen 800 mg PO Q8HR PRN #30 tab 05/28/17 Review of Systems - Review of Systems Constitutional: Denies: chills, fever EENTM: Denies: nose congestion, throat pain Respiratory: Denies: cough, short of breath Cardiology: Denies: chest pain, palpitations Musculoskeletal: States: see HPI, back pain, muscle stiffness Skin: Denies: dryness, lesions Neurological: Denies: numbness, paresthesia Past Medical History (General) - Patient Medical History Hx Seizures: No Hx Stroke: No Hx Dementia: No Hx Asthma: No Hx of COPD: No Hx Cardiac Disorders: No Hx Congestive Heart Failure: No Hx Pacemaker: No Hx Hypertension: No Hx Thyroid Disease: No Hx Diabetes: No Hx Gastroesophageal Reflux: No Hx Renal Disease: No Hx Cancer: No Hx of HIV: No Hx Hepatitis C: No Hx MRSA: No - Vaccination History Hx Tetanus, Diphtheria Vaccination: No Hx Influenza Vaccination: No Hx Pneumococcal Vaccination: No - Social History Hx Tobacco Use: - Uses E-cigs Hx Chewing Tobacco Use: No Hx Alcohol Use: No Hx Substance Use: No Hx Substance Use Treatment: No Hx Depression: Yes Hx Physical Abuse: No Hx Emotional Abuse: No Hx Suspected Abuse: No - Female History Hx Last Menstrual Period: 02/18/17 Patient : No Expected Date of Delivery:: 01/22/15 Family Medical History - Family History Maternal Grandparents Family History: No Known Living Status: Still Living Hx Family Hypertension: Yes Hx Family Diabetes: Yes - type 2 Hx Family;Other: Pt has no other known historys Mother Family History: No Known Physical Exam - Physical Exam General Appearance: Alert, Comfortable, No apparent distress, Well Developed, Well Groomed, Well Hydrated Eyes, Ears, Nose, Throat Exam: normal ENT inspection Neck Exam: normal inspection Cardiovascular/Respiratory: no respiratory distress Back Exam: no CVA tenderness, other - DIFFUSE LUMBAR TENDERNESS WITH (+) STRAIGHT LEG RAISE B/L @ 30DEGREES Neurologic: alert, normal mood/affect, oriented x 3 Skin Exam: normal color, warm/dry Departure - Departure Clinical Impression: Sciatica Qualifiers: Laterality: bilateral Qualified Code(s): M54.31 - Sciatica, right side Time of Disposition: 11:22 Disposition: Discharge to Home or Self Care Condition: Good Departure Forms: ED Discharge - Pt. Copy, Patient Portal Self Enrollment Instructions: DI for Back Pain With Sciatica Referrals: Guillermo Aguilar MD [Primary Care Provider] - 1-2 Weeks VANNESSA WHITEHEAD MD [Consulting Staff] - 1-2 Weeks Prescriptions: Acetaminophen W/ Codeine [Tylenol W/ CODEINE #3] 1 ea PO Q4HR PRN #24 PRN Reason: Pain Cyclobenzaprine HCl [Flexeril] 10 mg PO Q6HR PRN #20 tab PRN Reason: Muscle Spasms Ibuprofen 800 mg PO Q8HR PRN #30 tab PRN Reason: Pain Home Medications: Ambulatory Orders [place] Carbonate 300 mg PO TID 06/11/16 Trazodone HCl 50 mg PO BEDTIME 06/11/16 Cyclobenzaprine HCl [Flexeril] 10 mg PO Q6HR PRN #20 tab 01/01/18 Hydroxyzine Pamoate [Vistaril] 100 mg PO BID 05/11/17 Ibuprofen 800 mg PO Q8HR PRN #30 tab 05/11/17 Tramadol-Acetaminophen [Ultracet] 1 - 2 tab PO Q6HR PRN #30 tab 05/11/17 Acetaminophen W/ Codeine [Tylenol W/ CODEINE #3] 1 ea PO Q4HR PRN #24 05/28/17 Cyclobenzaprine HCl [Flexeril] 10 mg PO Q6HR PRN #20 tab 05/28/17 Ibuprofen 800 mg PO Q8HR PRN #30 tab 05/28/17
== END 2017-05-28 11:25 | disposition home or self-care (01) ==
LOC: ER 10:23
DX: M54.31 Sciatica, right side (principal); F17.290 Nicotine dependence, other tobacco product, uncomplicated; Z88.0 Allergy status to penicillin; Z79.899 Other long term (current) drug therapy
CPT/HCPCS: J1885; J2360

== ENCOUNTER 2017-07-21 13:06 | Emergency (ER) | payer OTHER ==
[2017-07-21 13:24] VITALS: TEMP 98.3
[2017-07-21] MEDS ORDERED: ORPHENADRINE CITRATE 30 MG/ML AMP IV ONE (13:30)
[2017-07-21] MEDS ORDERED: KETOROLAC TROMETHAMINE INJ 60 MG/2 ML VIAL IM ONE (13:30)
--- NOTE | 2017-07-21 13:34 | ED.PDOC ---
History of Present Illness - General Chief Complaint: Back Pain or Injury Stated Complaint: back pain Time Seen by Provider: 07/21/17 13:30 Source: patient, RN notes reviewed, Vital Signs reviewed Exam Limitations: no limitations - History of Present Illness Timing/Duration: other - over one year ago Quality/Severity: moderate Back Pain Location: lumbar spine, paraspinous muscles Back Pain Radiation: other - right leg Method of Injury/Prior Injury: twisted, prior injury Improving Factors: immobilization Worsening Factors: movement Associated Symptoms: denies symptoms, muscle spasms, tingling in legs/feet Allergies/Adverse Reactions: Allergies Penicillins Allergy (Verified 07/21/17 13:23) Home Medications: Ambulatory Orders [place] Carbonate 300 mg PO TID 06/11/16 Trazodone HCl 50 mg PO BEDTIME 06/11/16 Cyclobenzaprine HCl [Flexeril] 10 mg PO Q6HR PRN #20 tab 05/11/17 Hydroxyzine Pamoate [Vistaril] 100 mg PO BID 05/11/17 Ibuprofen 800 mg PO Q8HR PRN #30 tab 05/11/17 Tramadol-Acetaminophen [Ultracet] 1 - 2 tab PO Q6HR PRN #30 tab 05/11/17 Acetaminophen W/ Codeine [Tylenol W/ CODEINE #3] 1 ea PO Q4HR PRN #24 05/28/17 Cyclobenzaprine HCl [Flexeril] 10 mg PO Q6HR PRN #20 tab 05/28/17 Ibuprofen 800 mg PO Q8HR PRN #30 tab 05/28/17 Ketorolac Tromethamine [Toradol Tabs] 10 mg PO Q6HR PRN #20 tab 07/21/17 Review of Systems - Review of Systems Constitutional: States: no symptoms reported EENTM: States: no symptoms reported Respiratory: States: no symptoms reported Cardiology: States: no symptoms reported Gastrointestinal/Abdominal: States: no symptoms reported Genitourinary: States: no symptoms reported Musculoskeletal: States: muscle pain Neurological: Denies: headache, numbness, paresthesia, weakness Endocrine: States: no symptoms reported Hematologic/Lymphatic: States: no symptoms reported Past Medical History (General) - Patient Medical History Hx Seizures: No Hx Stroke: No Hx Dementia: No Hx Asthma: No Hx of COPD: No Hx Cardiac Disorders: No Hx Congestive Heart Failure: No Hx Pacemaker: No Hx Hypertension: No Hx Thyroid Disease: No Hx Diabetes: No Hx Gastroesophageal Reflux: No Hx Renal Disease: No Hx Cancer: No Hx of HIV: No Hx Hepatitis C: No Hx MRSA: No Surgical History: other - Vaccination History Hx Tetanus, Diphtheria Vaccination: No Hx Influenza Vaccination: No Hx Pneumococcal Vaccination: No - Social History Hx Tobacco Use: No - e cigarette Hx Chewing Tobacco Use: No Hx Alcohol Use: No Hx Substance Use: No Hx Substance Use Treatment: No Hx Depression: Yes Hx Physical Abuse: No Hx Emotional Abuse: No Hx Suspected Abuse: No - Female History Patient is a Female of Child Bearing Age (10 -59 yrs old): Yes Hx Last Menstrual Period: 02/18/17 Patient : No Expected Date of Delivery:: 01/22/15 - Triage Comment ED Triage Comment: LMP- one week ago Family Medical History - Family History Maternal Grandparents Family History: No Known Living Status: Still Living Hx Family Hypertension: Yes Hx Family Diabetes: Yes - type 2 Hx Family;Other: Pt has no other known historys Mother Family History: No Known Physical Exam - Physical Exam General Appearance: Alert, No apparent distress, Well Developed, Well Groomed, Well Hydrated, Well Nourished Eyes, Ears, Nose, Throat Exam: PERRL/EOMI, normal ENT inspection Neck Exam: non-tender, full range of motion Cardiovascular/Respiratory: regular rate, rhythm, normal peripheral pulses Gastrointestinal/Abdominal: non tender, soft Back Exam: no vertebral tenderness, decreased range of motion, muscle spasm Extremity Exam: no evidence of injury, normal range of motion, non-tender, other - strait leg raise + on right 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 Copy, Patient Portal Self Enrollment Instructions: DI for Low Back Pain, Managing Chronic Low Back Pain, DI for Back Pain With Sciatica, Support Garment May Reduce Back Pain Discomfort During Diet: resume usual diet Activity: increase activity as tolerated Referrals: Guillermo Aguilar MD [Primary Care Provider] - 1-2 Weeks Prescriptions: Ketorolac Tromethamine [Toradol Tabs] 10 mg PO Q6HR PRN #20 tab PRN Reason: Pain Home Medications: Ambulatory Orders [place] Carbonate 300 mg PO TID 06/11/16 Trazodone HCl 50 mg PO BEDTIME 06/11/16 Cyclobenzaprine HCl [Flexeril] 10 mg PO Q6HR PRN #20 tab 05/11/17 Hydroxyzine Pamoate [Vistaril] 100 mg PO BID 05/11/17 Ibuprofen 800 mg PO Q8HR PRN #30 tab 05/11/17 Tramadol-Acetaminophen [Ultracet] 1 - 2 tab PO Q6HR PRN #30 tab 05/11/17 Acetaminophen W/ Codeine [Tylenol W/ CODEINE #3] 1 ea PO Q4HR PRN #24 05/28/17 Cyclobenzaprine HCl [Flexeril] 10 mg PO Q6HR PRN #20 tab 05/28/17 Ibuprofen 800 mg PO Q8HR PRN #30 tab 05/28/17 Ketorolac Tromethamine [Toradol Tabs] 10 mg PO Q6HR PRN #20 tab 07/21/17 Additional Instructions: return if acute weakness, worsening, problem, concern
[2017-07-21] MEDS ORDERED: ORPHENADRINE CITRATE 30 MG/ML AMP IM ONE (13:42)
[2017-07-21 13:57] VITALS: BP 126/79; O2SAT 99
== END 2017-07-21 13:55 | disposition home or self-care (01) ==
LOC: ER 13:06
DX: M54.41 Lumbago with sciatica, right side (principal); G89.29 Other chronic pain; F17.210 Nicotine dependence, cigarettes, uncomplicated; Z79.899 Other long term (current) drug therapy
CPT/HCPCS: J1885; J2360

== ENCOUNTER 2017-08-02 10:31 | Emergency (ER) | payer OTHER ==
[2017-08-02 10:42] VITALS: TEMP 97.6
[2017-08-02] MEDS ORDERED: SODIUM CHLORIDE 0.9% 1000ML 1,000 ML IVS ONE (10:49)
--- NOTE | 2017-08-02 10:58 | ED.PDOC ---
History of Present Illness - General Chief Complaint: Neuro Symptoms/Deficits Stated Complaint: dizzy Time Seen by Provider: 08/02/17 10:40 Source: patient Exam Limitations: no limitations Additional Information: C/O LIGHTHEADEDNESS AND DIZZINESS - History of Present Illness Timing/Duration: other - TODAY Severity: mild Improving Factors: nothing Worsening Factors: nothing Associated Symptoms: other - NEAR SYNCOPE X 1 Allergies/Adverse Reactions: Allergies Penicillins Allergy (Verified 08/02/17 10:42) Home Medications: Ambulatory Orders [place] Carbonate 300 mg PO TID 06/11/16 Trazodone HCl 50 mg PO BEDTIME 06/11/16 Cyclobenzaprine HCl [Flexeril] 10 mg PO Q6HR PRN #20 tab 05/11/17 Hydroxyzine Pamoate [Vistaril] 100 mg PO BID 05/11/17 Ibuprofen 800 mg PO Q8HR PRN #30 tab 05/11/17 Tramadol-Acetaminophen [Ultracet] 1 - 2 tab PO Q6HR PRN #30 tab 05/11/17 Acetaminophen W/ Codeine [Tylenol W/ CODEINE #3] 1 ea PO Q4HR PRN #24 05/28/17 Cyclobenzaprine HCl [Flexeril] 10 mg PO Q6HR PRN #20 tab 05/28/17 Ibuprofen 800 mg PO Q8HR PRN #30 tab 05/28/17 Ketorolac Tromethamine [Toradol Tabs] 10 mg PO Q6HR PRN #20 tab 07/21/17 Diphenoxylate/Atropine [Lomotil Tab] 2.5 mg PO TID PRN #15 tab 08/02/17 Review of Systems - Review of Systems Constitutional: States: chills. Denies: fever EENTM: States: no symptoms reported Respiratory: States: no symptoms reported Cardiology: States: no symptoms reported Gastrointestinal/Abdominal: States: diarrhea - WATERY NO BLOOD 5-10/DAY. Denies : abdominal pain, nausea, vomiting Genitourinary: Denies: dysuria, hematuria Musculoskeletal: States: no symptoms reported Skin: States: no symptoms reported Neurological: States: no symptoms reported Endocrine: States: no symptoms reported Hematologic/Lymphatic: States: no symptoms reported Past Medical History (General) - Patient Medical History Hx Seizures: No Hx Stroke: No Hx Dementia: No Hx Asthma: No Hx of COPD: No Hx Cardiac Disorders: No Hx Congestive Heart Failure: No Hx Pacemaker: No Hx Hypertension: No Hx Thyroid Disease: No Hx Diabetes: No Hx Gastroesophageal Reflux: No Hx Renal Disease: No Hx Cancer: No Hx of HIV: No Hx Hepatitis C: No Hx MRSA: No Hx Other - free text: PSYCH Surgical History: other - Vaccination History Hx Tetanus, Diphtheria Vaccination: No Hx Influenza Vaccination: No Hx Pneumococcal Vaccination: No - Social History Hx Tobacco Use: No - e cigarette Hx Chewing Tobacco Use: No Hx Alcohol Use: No Hx Substance Use: No Hx Substance Use Treatment: No Hx Depression: Yes Hx Physical Abuse: No Hx Emotional Abuse: No Hx Suspected Abuse: No - Female History Hx Last Menstrual Period: 02/18/17 Patient : No Expected Date of Delivery:: 01/22/15 Family Medical History - Family History Maternal Grandparents Family History: No Known Living Status: Still Living Hx Family Hypertension: Yes Hx Family Diabetes: Yes - type 2 Hx Family;Other: Pt has no other known historys Mother Family History: No Known Physical Exam - Physical Exam General Appearance: Alert, No apparent distress Eye Exam: bilateral normal Ears, Nose, Throat: hearing grossly normal, normal ENT inspection, normal pharynx, other - TM'S NL, DRY MM Neck: non-tender, full range of motion, supple Respiratory: lungs clear, normal breath sounds, no respiratory distress Cardiovascular/Chest: regular rate, rhythm, no murmur Gastrointestinal/Abdominal: normal bowel sounds, non tender, soft, no organomegaly Back Exam: normal inspection, no CVA tenderness Extremity: normal range of motion, non-tender, normal inspection Neurologic: no motor/sensory deficits, alert, normal mood/affect Skin Exam: normal color, warm/dry Lymphatic: no adenopathy Progress - Progress Progress: 08/02/17 12:47 FEELS MUCH BETTER AFTER FLUIDS. UNABLE TO PROVIDE STOOL. Departure - Departure Clinical Impression: Dehydration Diarrhea Qualifiers: Diarrhea type: infectious Qualified Code(s): A09 - Infectious gastroenteritis and colitis, unspecified Time of Disposition: 12:15 Disposition: Discharge to Home or Self Care Condition: Good Departure Forms: ED Discharge - Pt. Copy, Patient Portal Self Enrollment Instructions: Diarrhea (Alternative Therapy), DI for Dehydration -- Adult Referrals: Guillermo Aguilar MD [Primary Care Provider] - 1-2 Weeks Prescriptions: Diphenoxylate/Atropine [Lomotil Tab] 2.5 mg PO TID PRN #15 tab PRN Reason: Diarrhea Home Medications: Ambulatory Orders [place] Carbonate 300 mg PO TID 06/11/16 Trazodone HCl 50 mg PO BEDTIME 06/11/16 Cyclobenzaprine HCl [Flexeril] 10 mg PO Q6HR PRN #20 tab 05/11/17 Hydroxyzine Pamoate [Vistaril] 100 mg PO BID 05/11/17 Ibuprofen 800 mg PO Q8HR PRN #30 tab 05/11/17 Tramadol-Acetaminophen [Ultracet] 1 - 2 tab PO Q6HR PRN #30 tab 05/11/17 Acetaminophen W/ Codeine [Tylenol W/ CODEINE #3] 1 ea PO Q4HR PRN #24 05/28/17 Cyclobenzaprine HCl [Flexeril] 10 mg PO Q6HR PRN #20 tab 05/28/17 Ibuprofen 800 mg PO Q8HR PRN #30 tab 05/28/17 Ketorolac Tromethamine [Toradol Tabs] 10 mg PO Q6HR PRN #20 tab 07/21/17 Diphenoxylate/Atropine [Lomotil Tab] 2.5 mg PO TID PRN #15 tab 08/02/17
[2017-08-02 13:10] VITALS: BP 124/77; O2SAT 97
== END 2017-08-02 13:04 | disposition home or self-care (01) ==
LOC: ER 10:31
DX: E86.0 Dehydration (principal); A09 Infectious gastroenteritis and colitis, unspecified; F17.210 Nicotine dependence, cigarettes, uncomplicated
CPT/HCPCS: 36415; 80053; 81001; 84703; 85025; J7030

== ENCOUNTER 2017-08-10 16:37 | Emergency (ER) | payer OTHER ==
[2017-08-10 16:52] VITALS: BP 127/70; TEMP 98.7; O2SAT 98
[2017-08-10] MEDS ORDERED: tiZANidine 4 MG TAB PO ONE (17:01)
[2017-08-10] MEDS ORDERED: predniSONE 20 MG TAB PO ONE (17:01)
--- NOTE | 2017-08-10 17:04 | ED.PDOC ---
History of Present Illness - General Chief Complaint: Back Pain or Injury Stated Complaint: chronic back pain Time Seen by Provider: 08/10/17 16:58 Source: patient Exam Limitations: no limitations - History of Present Illness Initial Comments: the patient is a 27-year-old female presenting to the emergency room secondary to chronic right low back pain with some sciatica down her right leg. She has had multiple visits for this in the past and she is actually scheduled to see a back specialist and pain management later this coming month. She reports that the muscle relaxer Soma is not really doing much for her discomfort and it is just making drowsy and she wants to try something else. The patient has been on Flexerilbefore in the past along with Ultram and Tylenol No. 3. She has no new symptoms and no worsening of symptoms is just that the medication is not doing much. She reports that she would not been seen today except she was bringing her child in for a headache. No incontinence or weakness. No sensory changes. Timing/Duration: unsure Severity: moderate Improving Factors: nothing Worsening Factors: nothing Allergies/Adverse Reactions: Allergies Penicillins Allergy (Verified 08/10/17 16:52) Anaphylaxis Home Medications: Ambulatory Orders [place] Carbonate 300 mg PO TID 06/11/16 Trazodone HCl 50 mg PO BEDTIME 06/11/16 Cyclobenzaprine HCl [Flexeril] 10 mg PO Q6HR PRN #20 tab 05/11/17 Hydroxyzine Pamoate [Vistaril] 100 mg PO BID 05/11/17 Ibuprofen 800 mg PO Q8HR PRN #30 tab 05/11/17 Tramadol-Acetaminophen [Ultracet] 1 - 2 tab PO Q6HR PRN #30 tab 05/11/17 Acetaminophen W/ Codeine [Tylenol W/ CODEINE #3] 1 ea PO Q4HR PRN #24 05/28/17 Cyclobenzaprine HCl [Flexeril] 10 mg PO Q6HR PRN #20 tab 05/28/17 Ibuprofen 800 mg PO Q8HR PRN #30 tab 05/28/17 Ketorolac Tromethamine [Toradol Tabs] 10 mg PO Q6HR PRN #20 tab 07/21/17 Diphenoxylate/Atropine [Lomotil Tab] 2.5 mg PO TID PRN #15 tab 08/02/17 Tizanidine HCl [Zanaflex] 2 mg PO Q8H PRN #30 cap 08/10/17 Review of Systems - Review of Systems Constitutional: States: no symptoms reported EENTM: States: no symptoms reported Respiratory: States: no symptoms reported Cardiology: States: no symptoms reported Gastrointestinal/Abdominal: States: no symptoms reported Genitourinary: States: no symptoms reported Musculoskeletal: States: see HPI, back pain Skin: States: no symptoms reported Neurological: States: see HPI Endocrine: States: no symptoms reported All other Systems: No Change from Baseline Past Medical History (General) - Patient Medical History Hx Seizures: No Hx Stroke: No Hx Dementia: No Hx Asthma: No Hx of COPD: No Hx Cardiac Disorders: No Hx Congestive Heart Failure: No Hx Pacemaker: No Hx Hypertension: No Hx Thyroid Disease: No Hx Diabetes: No Hx Gastroesophageal Reflux: No Hx Renal Disease: No Hx Cancer: No Hx of HIV: No Hx Hepatitis C: No Hx MRSA: No - Vaccination History Hx Tetanus, Diphtheria Vaccination: No Hx Influenza Vaccination: No Hx Pneumococcal Vaccination: No - Social History Hx Tobacco Use: No - e cigarette Hx Chewing Tobacco Use: No Hx Alcohol Use: No Hx Substance Use: No Hx Substance Use Treatment: No Hx Depression: Yes Hx Physical Abuse: No Hx Emotional Abuse: No Hx Suspected Abuse: No - Female History Hx Last Menstrual Period: 02/18/17 Patient : No Expected Date of Delivery:: 01/22/15 Family Medical History - Family History Maternal Grandparents Family History: No Known Living Status: Still Living Hx Family Hypertension: Yes Hx Family Diabetes: Yes - type 2 Hx Family;Other: Pt has no other known historys Mother Family History: No Known Physical Exam - Physical Exam General Appearance: Alert, Comfortable, No apparent distress Eye Exam: bilateral normal Ears, Nose, Throat: hearing grossly normal, normal pharynx Neck: supple, normal inspection Respiratory: no respiratory distress, no accessory muscle use Cardiovascular/Chest: normal peripheral pulses, no edema Peripheral Pulses: radial,right: 2+, radial,left: 2+, dorsalis pedis,right: 2+, dorsalis pedis,left: 2+ Gastrointestinal/Abdominal: non tender, soft Rectal Exam: deferred Back Exam: no vertebral tenderness, other - ild right-sided low back discomfort palpation. No visible deformities. No crepitus. 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 The patient is going to be changed over from her Soma to Zanaflex as a trial. Hopefully she will get more benefit from pain relief and less drowsiness with this. She can take a 2 mg tablet every 8 hours if she needs to. 30 tablets are dispensed. She needs to keep follow-up with her pain management and back doctor later this month. ER warnings are given for any worsening. She needs to keep herself hydrated. She can still use anti-inflammatory such as ibuprofen or Aleve. Stretching exercises may still help. Departure - Departure Clinical Impression: Chronic low back pain with right-sided sciatica Qualifiers: Back pain laterality: right Qualified Code(s): M54.41 - Lumbago with sciatica, right side; G89.29 - Other chronic pain Disposition: Discharge to Home or Self Care Condition: Fair Departure Forms: ED Discharge - Pt. Copy, Patient Portal Self Enrollment Instructions: DI for Back Pain With Sciatica Diet: regular diet Activity: increase activity as tolerated Referrals: Guillermo Aguilar MD [Primary Care Provider] - 1-5 Days Prescriptions: Tizanidine HCl [Zanaflex] 2 mg PO Q8H PRN #30 cap PRN Reason: Muscle Spasms Home Medications: Ambulatory Orders [place] Carbonate 300 mg PO TID 06/11/16 Trazodone HCl 50 mg PO BEDTIME 06/11/16 Cyclobenzaprine HCl [Flexeril] 10 mg PO Q6HR PRN #20 tab 05/11/17 Hydroxyzine Pamoate [Vistaril] 100 mg PO BID 05/11/17 Ibuprofen 800 mg PO Q8HR PRN #30 tab 05/11/17 Tramadol-Acetaminophen [Ultracet] 1 - 2 tab PO Q6HR PRN #30 tab 05/11/17 Acetaminophen W/ Codeine [Tylenol W/ CODEINE #3] 1 ea PO Q4HR PRN #24 05/28/17 Cyclobenzaprine HCl [Flexeril] 10 mg PO Q6HR PRN #20 tab 05/28/17 Ibuprofen 800 mg PO Q8HR PRN #30 tab 05/28/17 Ketorolac Tromethamine [Toradol Tabs] 10 mg PO Q6HR PRN #20 tab 07/21/17 Diphenoxylate/Atropine [Lomotil Tab] 2.5 mg PO TID PRN #15 tab 08/02/17 Tizanidine HCl [Zanaflex] 2 mg PO Q8H PRN #30 cap 08/10/17 Additional Instructions: the patient is a 27-year-old female with chronic low back pain presenting secondary to persistent chronic low back pain with some sciatica. The patient is going to be changed over from her Soma to Zanaflex as a trial. Hopefully she will get more benefit from pain relief and less drowsiness with this. She can take a 2 mg tablet every 8 hours if she needs to. 30 tablets are dispensed. She needs to keep follow-up with her pain management and back doctor later this month. ER warnings are given for any worsening. She needs to keep herself hydrated. She can still use anti-inflammatory such as ibuprofen or Aleve. Stretching exercises may still help.
== END 2017-08-10 17:30 | disposition home or self-care (01) ==
LOC: ER 16:37
DX: M54.41 Lumbago with sciatica, right side (principal); G89.29 Other chronic pain; F17.210 Nicotine dependence, cigarettes, uncomplicated; Z88.0 Allergy status to penicillin; Z79.899 Other long term (current) drug therapy

== ENCOUNTER 2017-08-25 13:13 | Emergency (ER) | payer OTHER ==
[2017-08-25] MEDS ORDERED: IBUPROFEN 200 MG TAB PO ONE (17:03)
[2017-08-25] MEDS ORDERED: CLINDAMYCIN HCL CAP 150 MG CAP PO ONE (17:04)
[2017-08-25] MEDS ORDERED: HYDROcodone 5MG/APAP 325MG 1 EA TAB PO ONE (17:04)
--- NOTE | 2017-08-25 17:10 | ED.PDOC ---
History of Present Illness - General Chief Complaint: Dental/Mouth Stated Complaint: tooth pain Time Seen by Provider: 08/25/17 17:03 Source: patient Exam Limitations: no limitations - History of Present Illness Initial Comments: PT PRESENTS TO THE ED WITH COMPLAINT OF DENTAL PAIN AFTER HAVING A TOOTH EXTRACTED AT A DENTAL CLINIC IN [place] YESTERDAY. PT REPORTS THERE WAS INFECTION TO THE TOOTH AND GUM PRIOR TO EXTRACTION, HOWEVER SHE WAS NOT SENT HOME WITH PAIN MEDS OR ANTIBIOTICS. Timing/Duration: yesterday Severity: severe EENT Location: dental Improving Factors: nothing Worsening Factors: nothing Allergies/Adverse Reactions: Allergies Penicillins Allergy (Verified 08/10/17 16:52) Anaphylaxis Home Medications: Ambulatory Orders [place] Carbonate 300 mg PO TID 06/11/16 Trazodone HCl 50 mg PO BEDTIME 06/11/16 Cyclobenzaprine HCl [Flexeril] 10 mg PO Q6HR PRN #20 tab 05/11/17 Hydroxyzine Pamoate [Vistaril] 100 mg PO BID 05/11/17 Ibuprofen 800 mg PO Q8HR PRN #30 tab 05/11/17 Tramadol-Acetaminophen [Ultracet] 1 - 2 tab PO Q6HR PRN #30 tab 05/11/17 Acetaminophen W/ Codeine [Tylenol W/ CODEINE #3] 1 ea PO Q4HR PRN #24 05/28/17 Cyclobenzaprine HCl [Flexeril] 10 mg PO Q6HR PRN #20 tab 05/28/17 Ibuprofen 800 mg PO Q8HR PRN #30 tab 05/28/17 Ketorolac Tromethamine [Toradol Tabs] 10 mg PO Q6HR PRN #20 tab 07/21/17 Diphenoxylate/Atropine [Lomotil Tab] 2.5 mg PO TID PRN #15 tab 08/02/17 Tizanidine HCl [Zanaflex] 2 mg PO Q8H PRN #30 cap 08/10/17 Acetaminophen W/ Codeine [Tylenol W/ CODEINE #3] 1 ea PO Q4HR PRN #24 08/25/17 Clindamycin HCl [Cleocin] 450 mg PO TID #90 cap 08/25/17 Ibuprofen 800 mg PO Q8HR PRN #30 tab 08/25/17 Review of Systems - Review of Systems Constitutional: Denies: chills, fever EENTM: States: mouth pain. Denies: nose congestion Respiratory: Denies: cough, short of breath Cardiology: Denies: chest pain, palpitations Gastrointestinal/Abdominal: Denies: abdominal pain, diarrhea, vomiting Past Medical History (General) - Patient Medical History Hx Seizures: No Hx Stroke: No Hx Dementia: No Hx Asthma: No Hx of COPD: No Hx Cardiac Disorders: No Hx Congestive Heart Failure: No Hx Pacemaker: No Hx Hypertension: No Hx Thyroid Disease: No Hx Diabetes: No Hx Gastroesophageal Reflux: No Hx Renal Disease: No Hx Cancer: No Hx of HIV: No Hx Hepatitis C: No Hx MRSA: No Surgical History: other - Vaccination History Hx Tetanus, Diphtheria Vaccination: No Hx Influenza Vaccination: No Hx Pneumococcal Vaccination: No - Social History Hx Tobacco Use: No - e cigarette Hx Chewing Tobacco Use: No Hx Alcohol Use: No Hx Substance Use: No Hx Substance Use Treatment: No Hx Depression: Yes Hx Physical Abuse: No Hx Emotional Abuse: No Hx Suspected Abuse: No - Female History Hx Last Menstrual Period: 02/18/17 Patient : No Expected Date of Delivery:: 01/22/15 Family Medical History - Family History Maternal Grandparents Family History: No Known Living Status: Still Living Hx Family Hypertension: Yes Hx Family Diabetes: Yes - type 2 Hx Family;Other: Pt has no other known historys Mother Family History: No Known Physical Exam - Physical Exam General Appearance: Alert, No apparent distress, Well Developed, Well Groomed, Well Hydrated Throat Exam: dental tenderness - EXTRACTION SITE TO THE RIGHT LOWER CANINE REGION WITH LACERATION NOTED TO THE GUMLINE. ERYTHEMA AND TENDERNESS TO PALPATION. Neck: non-tender, full range of motion, supple, normal inspection Neurologic: alert, normal mood/affect, oriented x 3 Skin Exam: normal color, warm/dry Departure - Departure Clinical Impression: Dental abscess, Acute pain of mouth, History of tooth extraction Time of Disposition: 17:06 Disposition: Discharge to Home or Self Care Condition: Good Departure Forms: ED Discharge - Pt. Copy, Patient Portal Self Enrollment Instructions: DI for Mouth Pain, DI on Tooth Extraction Referrals: Guillermo Aguilar MD [Primary Care Provider] - 1-2 Weeks Prescriptions: Acetaminophen W/ Codeine [Tylenol W/ CODEINE #3] 1 ea PO Q4HR PRN #24 PRN Reason: Pain Ibuprofen 800 mg PO Q8HR PRN #30 tab PRN Reason: Pain Clindamycin HCl [Cleocin] 450 mg PO TID #90 cap Home Medications: Ambulatory Orders [place] Carbon[place] 300 mg PO TID 06/11/16 Trazodone HCl 50 mg PO BEDTIME 06/11/16 Cyclobenzaprine HCl [Flexeril] 10 mg PO Q6HR PRN #20 tab 05/11/17 Hydroxyzine Pamoate [Vistaril] 100 mg PO BID 05/11/17 Ibuprofen 800 mg PO Q8HR PRN #30 tab 05/11/17 Tramadol-Acetaminophen [Ultracet] 1 - 2 tab PO Q6HR PRN #30 tab 05/11/17 Acetaminophen W/ Codeine [Tylenol W/ CODEINE #3] 1 ea PO Q4HR PRN #24 05/28/17 Cyclobenzaprine HCl [Flexeril] 10 mg PO Q6HR PRN #20 tab 05/28/17 Ibuprofen 800 mg PO Q8HR PRN #30 tab 05/28/17 Ketorolac Tromethamine [Toradol Tabs] 10 mg PO Q6HR PRN #20 tab 07/21/17 Diphenoxylate/Atropine [Lomotil Tab] 2.5 mg PO TID PRN #15 tab 08/02/17 Tizanidine HCl [Zanaflex] 2 mg PO Q8H PRN #30 cap 08/10/17 Acetaminophen W/ Codeine [Tylenol W/ CODEINE #3] 1 ea PO Q4HR PRN #24 08/25/17 Clindamycin HCl [Cleocin] 450 mg PO TID #90 cap 08/25/17 Ibuprofen 800 mg PO Q8HR PRN #30 tab 08/25/17
[2017-08-25 17:31] VITALS: BP 122/68; TEMP 97.6; O2SAT 96
== END 2017-08-25 17:25 | disposition home or self-care (01) ==
LOC: ER 13:13
DX: K04.7 Periapical abscess without sinus (principal); Z98.818 Other dental procedure status; F17.210 Nicotine dependence, cigarettes, uncomplicated

== ENCOUNTER → 2017-09-03 | Outpatient (CLI) | payer OTHER ==
--- NOTE | 2017-09-04 15:18 | RAD ---
EXAM DESCRIPTION: Lumbar Spine 5 Views CLINICAL HISTORY: LOW BACK PAIN COMPARISON: None Available. TECHNIQUE: AP/lateral/ coned-down lateral/both obliques FINDINGS: Five view lumbar spine shows good alignment of the lumbar spine other than slight leftward scoliotic curvature. There is no vertebral abnormality. The intervertebral disc space height is well-maintained. There are no abnormalities of the posterior elements demonstrated.. No pars fracture is seen on the oblique images. IMPRESSION: Negative for fracture or traumatic subluxation. Electronically signed by: Hong Orlando MD 09/04/2017 3:16 PM CDT
== END ==
LOC: YCFC.O 11:07
PROVIDERS: ATTEND Nurse Practitioner Family
DX: M54.5 Low back pain (principal)

== ENCOUNTER 2017-09-18 12:19 | Emergency (ER) | payer OTHER ==
--- NOTE | 2017-09-18 12:38 | ED.PDOC ---
History of Present Illness - General Chief Complaint: Upper Extremity Injury Time Seen by Provider: 09/18/17 12:25 Source: patient Exam Limitations: no limitations Additional Information: SMASHED INDEX FINGER IN CAR DOOR - History of Present Illness Occurred: just prior to arrival Improving Factors: nothing Worsening Factors: movement Allergies/Adverse Reactions: Allergies Penicillins Allergy (Verified 08/10/17 16:52) Anaphylaxis Home Medications: Ambulatory Orders [place] Carbonate 300 mg PO TID 06/11/16 Trazodone HCl 50 mg PO BEDTIME 06/11/16 Cyclobenzaprine HCl [Flexeril] 10 mg PO Q6HR PRN #20 tab 05/11/17 Hydroxyzine Pamoate [Vistaril] 100 mg PO BID 05/11/17 Ibuprofen 800 mg PO Q8HR PRN #30 tab 05/11/17 Tramadol-Acetaminophen [Ultracet] 1 - 2 tab PO Q6HR PRN #30 tab 05/11/17 Acetaminophen W/ Codeine [Tylenol W/ CODEINE #3] 1 ea PO Q4HR PRN #24 05/28/17 Cyclobenzaprine HCl [Flexeril] 10 mg PO Q6HR PRN #20 tab 05/28/17 Ibuprofen 800 mg PO Q8HR PRN #30 tab 05/28/17 Ketorolac Tromethamine [Toradol Tabs] 10 mg PO Q6HR PRN #20 tab 07/21/17 Diphenoxylate/Atropine [Lomotil Tab] 2.5 mg PO TID PRN #15 tab 08/02/17 Tizanidine HCl [Zanaflex] 2 mg PO Q8H PRN #30 cap 08/10/17 Acetaminophen W/ Codeine [Tylenol W/ CODEINE #3] 1 ea PO Q4HR PRN #24 08/25/17 Clindamycin HCl [Cleocin] 450 mg PO TID #90 cap 08/25/17 Ibuprofen 800 mg PO Q8HR PRN #30 tab 08/25/17 Cephalexin Monohydrate [Keflex] 500 mg PO TID #30 cap 09/18/17 Review of Systems - Review of Systems Constitutional: States: no symptoms reported Musculoskeletal: States: other - PAIN PIP L INDEX FINGER Skin: States: other - SWELLING AND ABRASION Neurological: States: no symptoms reported Past Medical History (General) - Patient Medical History Hx Seizures: No Hx Stroke: No Hx Dementia: No Hx Asthma: No Hx of COPD: No Hx Cardiac Disorders: No Hx Congestive Heart Failure: No Hx Pacemaker: No Hx Hypertension: No Hx Thyroid Disease: No Hx Diabetes: No Hx Gastroesophageal Reflux: No Hx Renal Disease: No Hx Cancer: No Hx of HIV: No Hx Hepatitis C: No Hx MRSA: No Hx Other - free text: BIPOLAR - Vaccination History Hx Tetanus, Diphtheria Vaccination: No Hx Influenza Vaccination: No Hx Pneumococcal Vaccination: No - Social History Hx Tobacco Use: No - e cigarette Hx Chewing Tobacco Use: No Hx Alcohol Use: No Hx Substance Use: No Hx Substance Use Treatment: No Hx Depression: Yes Hx Physical Abuse: No Hx Emotional Abuse: No Hx Suspected Abuse: No - Female History Hx Last Menstrual Period: 02/18/17 Patient : No Expected Date of Delivery:: 01/22/15 Family Medical History - Family History Maternal Grandparents Family History: No Known Living Status: Still Living Hx Family Hypertension: Yes Hx Family Diabetes: Yes - type 2 Hx Family;Other: Pt has no other known historys Mother Family History: No Known Physical Exam - Physical Exam General Appearance: Alert, No apparent distress Eyes, Ears, Nose, Throat Exam: PERRL/EOMI, normal ENT inspection Shoulder Exam: normal inspection, non-tender Elbow/Forearm Exam: normal inspection, non-tender Wrist Exam: normal inspection, non-tender Hand Exam: abrasions - L INDEX FINGER. MILD SWELLING AND TTP, NO BONY ABN DEFORMITY, NL CAP REFILL, SMALL ABRASION MID PHALANX. , swelling Neuro/Tendon: normal sensation, normal motor functions, normal tendon functions Skin Exam: other - ABRASION, NO ECCHYMOSIS Progress - EKG/XRAY/CT XRAY: hand - NO FX Departure - Departure Clinical Impression: Abrasion, finger w/o infection Time of Disposition: 12:55 Disposition: Discharge to Home or Self Care Condition: Excellent Departure Forms: ED Discharge - Pt. Copy, Patient Portal Self Enrollment Instructions: DI for Abrasion Referrals: Guillermo Aguilar MD [Primary Care Provider] - 1-2 Weeks Prescriptions: Cephalexin Monohydrate [Keflex] 500 mg PO TID #30 cap Home Medications: Ambulatory Orders [place] Carbonate 300 mg PO TID 06/11/16 Trazodone HCl 50 mg PO BEDTIME 06/11/16 Cyclobenzaprine HCl [Flexeril] 10 mg PO Q6HR PRN #20 tab 05/11/17 Hydroxyzine Pamoate [Vistaril] 100 mg PO BID 05/11/17 Ibuprofen 800 mg PO Q8HR PRN #30 tab 05/11/17 Tramadol-Acetaminophen [Ultracet] 1 - 2 tab PO Q6HR PRN #30 tab 05/11/17 Acetaminophen W/ Codeine [Tylenol W/ CODEINE #3] 1 ea PO Q4HR PRN #24 05/28/17 Cyclobenzaprine HCl [Flexeril] 10 mg PO Q6HR PRN #20 tab 05/28/17 Ibuprofen 800 mg PO Q8HR PRN #30 tab 05/28/17 Ketorolac Tromethamine [Toradol Tabs] 10 mg PO Q6HR PRN #20 tab 07/21/17 Diphenoxylate/Atropine [Lomotil Tab] 2.5 mg PO TID PRN #15 tab 08/02/17 Tizanidine HCl [Zanaflex] 2 mg PO Q8H PRN #30 cap 08/10/17 Acetaminophen W/ Codeine [Tylenol W/ CODEINE #3] 1 ea PO Q4HR PRN #24 08/25/17 Clindamycin HCl [Cleocin] 450 mg PO TID #90 cap 08/25/17 Ibuprofen 800 mg PO Q8HR PRN #30 tab 08/25/17 Cephalexin Monohydrate [Keflex] 500 mg PO TID #30 cap 09/18/17
[2017-09-18 12:41] VITALS: BP 95/58; TEMP 99.6; O2SAT 100
--- NOTE | 2017-09-18 12:49 | RAD ---
EXAM DESCRIPTION: Hand,Left 3 Views CLINICAL HISTORY: SHUT INDEX FINGER IN DOOR. COMPARISON: None. IMPRESSION: 3 views of the left hand shows no evidence of acute fracture, focal bone destruction, or joint dislocation. Soft tissues are unremarkable. Electronically signed by: Errol Hinton MD 09/18/2017 12:48 PM CDT
== END 2017-09-18 13:03 | disposition home or self-care (01) ==
LOC: ER 12:19
DX: S60.411A Abrasion of left index finger, initial encounter (principal); F31.9 Bipolar disorder, unspecified; F17.290 Nicotine dependence, other tobacco product, uncomplicated; W23.0XXA Caught, crushed, jammed, or pinched between moving objects, initial encounter

== ENCOUNTER 2017-11-30 08:44 | Emergency (ER) | payer OTHER ==
--- NOTE | 2017-11-30 09:22 | ED.PDOC ---
History of Present Illness - General Time Seen by Provider: 11/30/17 09:18 Source: patient Exam Limitations: no limitations - History of Present Illness Initial Comments: the patient is a 27-year-old female presenting to the emergency room secondary to dental painthe last 5 days. She chipped her posterior lower left molar. She does have poor dentition to start with. There is obvious exposed dental pulp. No obvious significant infection. The patient has been taking amoxicillin last for 5 days. Again no clinical evidence of infection. Pain is localized. No significant swelling. Timing/Duration: 1 week Severity: moderate Improving Factors: nothing Worsening Factors: nothing Associated Symptoms: denies symptoms Allergies/Adverse Reactions: Allergies Penicillins Allergy (Verified 08/10/17 16:52) Anaphylaxis Home Medications: Ambulatory Orders [place] Carbonate 300 mg PO BID 06/11/16 Hydroxyzine Pamoate [Vistaril] 100 mg PO BID 05/11/17 Aripiprazole [Abilify] 5 mg PO DAILY 10/02/17 Ibuprofen 800 mg PO BID 30 Days #60 tab 10/02/17 Tramadol HCl 50 mg PO Q6HR PRN #30 tab 11/30/17 Review of Systems - Review of Systems Constitutional: States: no symptoms reported EENTM: States: see HPI Respiratory: States: no symptoms reported Cardiology: States: no symptoms reported Gastrointestinal/Abdominal: States: no symptoms reported Genitourinary: States: no symptoms reported Musculoskeletal: States: no symptoms reported Skin: States: no symptoms reported Neurological: States: no symptoms reported Endocrine: States: no symptoms reported All other Systems: No Change from Baseline Past Medical History (General) - Patient Medical History Hx Seizures: No Hx Stroke: No Hx Dementia: No Hx Asthma: No Hx of COPD: No Hx Cardiac Disorders: No Hx Congestive Heart Failure: No Hx Pacemaker: No Hx Hypertension: No Hx Thyroid Disease: No Hx Diabetes: No Hx Gastroesophageal Reflux: No Hx Renal Disease: No Hx Cancer: No Hx of HIV: No Hx Hepatitis C: No Hx MRSA: No - Vaccination History Hx Tetanus, Diphtheria Vaccination: No Hx Influenza Vaccination: Yes Hx Pneumococcal Vaccination: Yes Immunizations Up to Date: No - Social History Hx Tobacco Use: No Hx Chewing Tobacco Use: No Hx Alcohol Use: No Hx Substance Use: No Hx Substance Use Treatment: No Hx Depression: No Feels Threatened In Home Enviroment: No Feels Threatened In a Relationship: No Hx Physical Abuse: No Hx Emotional Abuse: No Hx Suspected Abuse: No - Female History Patient is a Female of Child Bearing Age (10 -59 yrs old): Yes Hx Last Menstrual Period: 02/18/17 Patient : Yes Expected Date of Delivery:: 01/22/15 Family Medical History - Family History Maternal Grandparents Family History: No Known Living Status: Still Living Hx Family Hypertension: Yes Hx Family Diabetes: Yes - type 2 Hx Family;Other: Pt has no other known historys Mother Family History: No Known Physical Exam - Physical Exam General Appearance: Alert, Comfortable, No apparent distress Eye Exam: bilateral normal Ears, Nose, Throat: hearing grossly normal, other - see history of present illness Neck: non-tender, full range of motion Respiratory: no respiratory distress, no accessory muscle use Cardiovascular/Chest: normal peripheral pulses, no edema Peripheral Pulses: radial,right: 2+, radial,left: 2+ Rectal Exam: deferred Extremity: normal range of motion, no pedal edema, no calf tenderness, normal capillary refill 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 She does have a fractured tooth with some pulp exposed. The patient is already taking amoxicillin which is good. She does need to see a dentist. She'll be written for some tramadol for as needed use. Take ibuprofen additionally as needed. If she has some clove oil at home she can use a Q-tip to dab on clove oil on the exposed dental pulp to help reduce pain one time. She can use Orajel or Ambisol topically to help reduce pain as well. ER warnings were given. Follow- up with dentist. Departure - Departure Clinical Impression: Fracture, tooth Qualifiers: Encounter type: initial encounter Fracture type: open Qualified Code(s): S02.5XXB - Fracture of tooth (traumatic), initial encounter for open fracture Disposition: Discharge to Home or Self Care Condition: Fair Instructions: Tooth Decay, Adult (DC) Diet: regular diet Activity: increase activity as tolerated Referrals: Guillermo Aguilar MD [Primary Care Provider] - 1-2 Weeks Prescriptions: Tramadol HCl 50 mg PO Q6HR PRN #30 tab PRN Reason: Toothache Pain Home Medications: Ambulatory Orders [place] Carbonate 300 mg PO BID 06/11/16 Hydroxyzine Pamoate [Vistaril] 100 mg PO BID 05/11/17 Aripiprazole [Abilify] 5 mg PO DAILY 10/02/17 Ibuprofen 800 mg PO BID 30 Days #60 tab 10/02/17 Tramadol HCl 50 mg PO Q6HR PRN #30 tab 11/30/17 Additional Instructions: the patient is a 27-year-old female presenting to the emergency room secondary to dental pain in her lower posterior left molar. She does have a fractured tooth with some pulp exposed. The patient is already taking amoxicillin which is good. She does need to see a dentist. She'll be written for some tramadol for as needed use. Take ibuprofen additionally as needed. If she has some clove oil at home she can use a Q-tip to dab on clove oil on the exposed dental pulp to help reduce pain one time. She can use Orajel or Ambisol topically to help reduce pain as well. ER warnings were given. Follow- up with dentist.
[2017-11-30 17:47] VITALS: BP 137/82; TEMP 98.6; O2SAT 99
== END 2017-11-30 09:56 | disposition home or self-care (01) ==
LOC: ER 08:44
DX: S02.5XXA Fracture of tooth (traumatic), initial encounter for closed fracture (principal); K02.9 Dental caries, unspecified; Z88.0 Allergy status to penicillin; X58.XXXA Exposure to other specified factors, initial encounter; Y92.9 Unspecified place or not applicable

== ENCOUNTER 2017-12-14 14:46 | Emergency (ER) | payer OTHER ==
[2017-12-14 15:06] VITALS: TEMP 98.4; O2SAT 97
--- NOTE | 2017-12-14 15:14 | ED.PDOC ---
History of Present Illness - General Chief Complaint: Lower Extremity Injury Stated Complaint: right ankle pain Time Seen by Provider: 12/14/17 15:06 Source: patient, RN notes reviewed Additional Information: 27 YEAR OLD HERE FOR EVALUATION OF PAINFUL RIGHT ANKLE AFTER SHE STEPPED IINTO A HOLE TODAY MORNING SHE AMBULATED INTO THE EXAMINING ROOM NO DISTRESS NOTED - History of Present Illness Timing/Duration: constant Severity: moderate Improving Factors: immobilization Worsening Factors: movement Associated Symptoms: denies symptoms Allergies/Adverse Reactions: Allergies Penicillins Allergy (Verified 12/14/17 15:05) Anaphylaxis Home Medications: Ambulatory Orders [place] Carbonate 300 mg PO BID 06/11/16 Hydroxyzine Pamoate [Vistaril] 100 mg PO BID 05/11/17 Aripiprazole [Abilify] 5 mg PO DAILY 10/02/17 Acetamin W/Cod #3 Tab [Tylenol w/CODEINE #3] 1 ea PO Q6HR PRN #40 tab 12/14/17 Review of Systems - Review of Systems Constitutional: States: no symptoms reported EENTM: States: no symptoms reported Respiratory: States: no symptoms reported Cardiology: States: no symptoms reported Gastrointestinal/Abdominal: States: no symptoms reported Genitourinary: States: no symptoms reported Musculoskeletal: States: see HPI Skin: States: no symptoms reported Neurological: States: no symptoms reported Endocrine: States: no symptoms reported Past Medical History (General) - Patient Medical History Hx Seizures: No Hx Stroke: No Hx Dementia: No Hx Asthma: No Hx of COPD: No Hx Cardiac Disorders: No Hx Congestive Heart Failure: No Hx Pacemaker: No Hx Hypertension: No Hx Thyroid Disease: No Hx Diabetes: No Hx Gastroesophageal Reflux: No Hx Renal Disease: No Hx Cancer: No Hx of HIV: No Hx Hepatitis C: No Hx MRSA: No Surgical History: other - Vaccination History Hx Tetanus, Diphtheria Vaccination: No Hx Influenza Vaccination: Yes Hx Pneumococcal Vaccination: Yes - Social History Hx Tobacco Use: No - uses vapor cigarette Hx Chewing Tobacco Use: No Hx Alcohol Use: No Hx Substance Use: No Hx Substance Use Treatment: No Hx Depression: No Hx Physical Abuse: No Hx Emotional Abuse: No Hx Suspected Abuse: No - Female History Hx Last Menstrual Period: 02/18/17 Patient : Yes Expected Date of Delivery:: 01/22/15 - Triage Comment ED Triage Comment: LMP "2 weeks ago" Family Medical History - Family History Maternal Grandparents Family History: No Known Living Status: Still Living Hx Family Hypertension: Yes Hx Family Diabetes: Yes - type 2 Hx Family;Other: Pt has no other known historys Mother Family History: No Known Physical Exam - Physical Exam General Appearance: Alert, Comfortable Eye Exam: bilateral normal, bilateral abnormal EOM Ears, Nose, Throat: hearing grossly normal, normal ENT inspection, normal pharynx Neck: non-tender, full range of motion, supple Respiratory: chest non-tender, lungs clear, normal breath sounds, no respiratory distress, no accessory muscle use Cardiovascular/Chest: normal peripheral pulses, regular rate, rhythm, no edema, no gallop, no JVD Peripheral Pulses: radial,right: 2+, radial,left: 2+, femoral,right: 2+, femoral ,left: 2+, popliteal,right: 2+, popliteal,left: 2+ Gastrointestinal/Abdominal: normal bowel sounds, non tender, soft, no organomegaly Extremity: normal range of motion, non-tender, normal inspection, other - RIGHT ANKLE NO GROSS DEFORMITY NO TENDERNESS OVER THE MALLEOLI NO NEUROVASCULAR DEFICIT 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 Copy, Patient Portal Self Enrollment Instructions: DI for Leg Pain Diet: resume usual diet Referrals: Guillermo Aguilar MD [Primary Care Provider] - 1-2 Weeks Prescriptions: Acetamin W/Cod #3 Tab [Tylenol w/CODEINE #3] 1 ea PO Q6HR PRN #40 tab PRN Reason: Mild To Moderate Pain Home Medications: Ambulatory Orders [place] Carbonate 300 mg PO BID 06/11/16 Hydroxyzine Pamoate [Vistaril] 100 mg PO BID 05/11/17 Aripiprazole [Abilify] 5 mg PO DAILY 10/02/17 Acetamin W/Cod #3 Tab [Tylenol w/CODEINE #3] 1 ea PO Q6HR PRN #40 tab 12/14/17
--- NOTE | 2017-12-14 15:35 | RAD ---
Study: Three views of the Right Ankle. Indication: fall Comparison: None. Impression: No acute fracture, malalignment, advanced joint space narrowing, osseous erosions, or periarticular osteopenia identified. Soft tissues are intact without radiopaque foreign body. Electronically signed by: Clark Duffy MD 12/14/2017 3:34 PM CDT
[2017-12-14 16:09] VITALS: BP 125/70
== END 2017-12-14 16:09 | disposition home or self-care (01) ==
LOC: ER 14:46
DX: S93.401A Sprain of unspecified ligament of right ankle, initial encounter (principal); F17.290 Nicotine dependence, other tobacco product, uncomplicated; Z79.899 Other long term (current) drug therapy; Z88.0 Allergy status to penicillin; W17.2XXA Fall into hole, initial encounter; Y92.89 Other specified places as the place of occurrence of the external cause

== ENCOUNTER 2018-01-21 10:13 | Emergency (ER) | payer OTHER ==
[2018-01-21 10:41] VITALS: TEMP 99
--- NOTE | 2018-01-21 11:40 | ED.PDOC ---
History of Present Illness - General Chief Complaint: Back Pain or Injury Stated Complaint: right flank pain Time Seen by Provider: 01/21/18 11:03 Source: patient - History of Present Illness Initial Comments: Patient presents with right lower back pain since this morning. She was moving furniture around her house. Pain is right lumbar, cramping and aching in nature , some radiation down the right thigh, constant but intermittent in intensity, worse with movement, better with rest, no previous episodes. No urinary complaints. No saddle anesthesia. No incontinency. No other complaints. Timing/Duration: 1-3 hours Severity: moderate Improving Factors: rest Worsening Factors: movement Associated Symptoms: denies symptoms Allergies/Adverse Reactions: Allergies Penicillins Allergy (Verified 12/27/17 10:49) Anaphylaxis Home Medications: Ambulatory Orders [place] Carbonate 300 mg PO BID 06/11/16 Hydroxyzine Pamoate [Vistaril] 100 mg PO BID 05/11/17 Aripiprazole [Abilify] 5 mg PO DAILY 10/02/17 Acetamin W/Cod #3 Tab [Tylenol w/CODEINE #3] 1 ea PO Q6HR PRN #40 tab 12/14/17 Albuterol Inhaler [Ventolin Hfa Inhaler] 108 mcg IN Q6HRS PRN #1 inh 12/27/17 Azithromycin [Zithromax Z-Jerrell] 250 mg PO DAILY #6 tab 12/27/17 Benzonatate Perles [Tessalon Perles] 200 mg PO BID #40 cap 12/27/17 predniSONE 20 mg PO DAILY #7 tab 12/27/17 Cyclobenzaprine HCl [Flexeril] 10 mg PO TID #20 tab 01/21/18 Ketorolac Tromethamine [Toradol Tabs] 10 mg PO Q6HRS PRN #20 tab 01/21/18 Review of Systems - Review of Systems Constitutional: States: no symptoms reported EENTM: States: no symptoms reported Respiratory: States: no symptoms reported Cardiology: States: no symptoms reported Gastrointestinal/Abdominal: States: no symptoms reported Genitourinary: States: no symptoms reported Musculoskeletal: States: see HPI Skin: States: no symptoms reported Neurological: States: see HPI Endocrine: States: no symptoms reported Hematologic/Lymphatic: States: no symptoms reported Past Medical History (General) - Patient Medical History Hx Seizures: No Hx Stroke: No Hx Dementia: No Hx Asthma: No Hx of COPD: No Hx Cardiac Disorders: No Hx Congestive Heart Failure: No Hx Pacemaker: No Hx Hypertension: No Hx Thyroid Disease: No Hx Diabetes: No Hx Gastroesophageal Reflux: No Hx Renal Disease: No Hx Cancer: No Hx of HIV: No Hx Hepatitis C: No Hx MRSA: No Surgical History: other - Vaccination History Hx Tetanus, Diphtheria Vaccination: No Hx Influenza Vaccination: No Hx Pneumococcal Vaccination: No - Social History Hx Tobacco Use: Yes - Vapes Hx Chewing Tobacco Use: No Hx Alcohol Use: No Hx Substance Use: No Hx Substance Use Treatment: No Hx Depression: No Hx Physical Abuse: No Hx Emotional Abuse: No Hx Suspected Abuse: No - Female History Hx Last Menstrual Period: 12/26/17 Patient : No Expected Date of Delivery:: 01/22/15 Family Medical History - Family History Maternal Grandparents Family History: No Known Living Status: Still Living Hx Family Hypertension: Yes Hx Family Diabetes: Yes - type 2 Hx Family;Other: Pt has no other known historys Mother Family History: No Known Physical Exam - Physical Exam General Appearance: Alert Eye Exam: bilateral normal Ears, Nose, Throat: normal ENT inspection Neck: non-tender, full range of motion, supple Respiratory: lungs clear, normal breath sounds Cardiovascular/Chest: normal peripheral pulses, regular rate, rhythm, no edema Gastrointestinal/Abdominal: normal bowel sounds, non tender, soft Back Exam: normal inspection, no CVA tenderness, no vertebral tenderness, other Extremity: other - Straight leg raise is positive. Cross-leg is negative. Rotation of the torso elicites mild pain. Flexion of the torso elicits moderate pain. Heel walking elits moderate pain. Neurologic: no motor/sensory deficits, alert, normal mood/affect, oriented x 3, other - Patellar reflex is 2+ bilaterally DTR: 2+: Achilles, left, Achilles, right, Patellar, left, Patellar, right Skin Exam: normal color Lymphatic: no adenopathy Progress - Progress Progress: 01/21/18 12:16 Likely a back sprain with mild sciatica. Toradol 30 mg helped significantly with the pain. Patient sent home with RX for Toradol and flexeril. Care instructions given. E.R. warnings given. Questions were elicited and answered. The patient voiced understanding and agreement with the plan. Departure - Departure Clinical Impression: Low back pain Disposition: Discharge to Home or Self Care Condition: Good Departure Forms: ED Discharge - Pt. Copy, Patient Portal Self Enrollment Instructions: DI for Low Back Pain Diet: resume usual diet Activity: increase activity as tolerated, other - No lifting heavier than 15 pounds for two weeks. There return to activity as tolerated. If it hurts, stop doing it. See your regular doctor if the pain is not totally gone in 4-6 weeks. Prescriptions: Ketorolac Tromethamine [Toradol Tabs] 10 mg PO Q6HRS PRN #20 tab PRN Reason: Pain -- Moderate Cyclobenzaprine HCl [Flexeril] 10 mg PO TID #20 tab Home Medications: Ambulatory Orders [place] Carbonate 300 mg PO BID 06/11/16 Hydroxyzine Pamoate [Vistaril] 100 mg PO BID 05/11/17 Aripiprazole [Abilify] 5 mg PO DAILY 10/02/17 Acetamin W/Cod #3 Tab [Tylenol w/CODEINE #3] 1 ea PO Q6HR PRN #40 tab 12/14/17 Albuterol Inhaler [Ventolin Hfa Inhaler] 108 mcg IN Q6HRS PRN #1 inh 12/27/17 Azithromycin [Zithromax Z-[place]] 250 mg PO DAILY #6 tab 12/27/17 Benzonatate [place] [Tessalon Perles] 200 mg PO BID #40 cap 12/27/17 predniSONE 20 mg PO DAILY #7 tab 12/27/17 Cyclobenzaprine HCl [Flexeril] 10 mg PO TID #20 tab 01/21/18 Ketorolac Tromethamine [Toradol Tabs] 10 mg PO Q6HRS PRN #20 tab 01/21/18
[2018-01-21] MEDS ORDERED: KETOROLAC TROMETHAMINE INJ 30 MG/ML VIAL IM ONE (11:47)
[2018-01-21 12:26] VITALS: BP 119/76; O2SAT 99
== END 2018-01-21 12:26 | disposition home or self-care (01) ==
LOC: ER 10:13
DX: M54.5 Low back pain (principal); F17.290 Nicotine dependence, other tobacco product, uncomplicated; Z88.0 Allergy status to penicillin
CPT/HCPCS: 81001; 81025; J1885

== ENCOUNTER 2018-02-11 12:02 | Emergency (ER) | payer OTHER ==
[2018-02-11 12:28] VITALS: TEMP 98.8; O2SAT 98
[2018-02-11] MEDS ORDERED: KETOROLAC TROMETHAMINE INJ 30 MG/ML VIAL IM ONE (12:48)
--- NOTE | 2018-02-11 12:52 | ED.PDOC ---
History of Present Illness - General Chief Complaint: Dental/Mouth Stated Complaint: mouth pain Time Seen by Provider: 02/11/18 12:41 Source: patient Exam Limitations: no limitations - History of Present Illness Initial Comments: Patient presents with a toothache for two weeks. The tooth is the right mandibular first molar. She said that she fractured it two months ago. Pain is throbbing and non-radiating. No fevers. No associated symptoms No other complaints. Timing/Duration: other - 2 weeks Severity: mild Improving Factors: rest Worsening Factors: eating Associated Symptoms: denies symptoms Allergies/Adverse Reactions: Allergies Penicillins Allergy (Verified 12/27/17 10:49) Anaphylaxis Home Medications: Ambulatory Orders [place] Carbonate 300 mg PO BID 06/11/16 Hydroxyzine Pamoate [Vistaril] 100 mg PO BID 05/11/17 Aripiprazole [Abilify] 5 mg PO DAILY 10/02/17 Acetamin W/Cod #3 Tab [Tylenol w/CODEINE #3] 1 ea PO Q6HR PRN #40 tab 12/14/17 Albuterol Inhaler [Ventolin Hfa Inhaler] 108 mcg IN Q6HRS PRN #1 inh 12/27/17 Azithromycin [Zithromax Z-Jerrell] 250 mg PO DAILY #6 tab 12/27/17 Benzonatate Perles [Tessalon Perles] 200 mg PO BID #40 cap 12/27/17 predniSONE 20 mg PO DAILY #7 tab 12/27/17 Cyclobenzaprine HCl [Flexeril] 10 mg PO TID #20 tab 01/21/18 Ketorolac Tromethamine [Toradol Tabs] 10 mg PO Q6HRS PRN #20 tab 01/21/18 Clindamycin HCl 300 mg PO Q6HRS #10 cap 02/11/18 Ketorolac Tromethamine [Toradol Tabs] 10 mg PO Q6HRS PRN #20 tab 02/11/18 Review of Systems - Review of Systems Constitutional: States: no symptoms reported EENTM: States: see HPI Respiratory: States: no symptoms reported Cardiology: States: no symptoms reported Gastrointestinal/Abdominal: States: no symptoms reported Genitourinary: States: no symptoms reported Musculoskeletal: States: no symptoms reported Skin: States: no symptoms reported Neurological: States: no symptoms reported Endocrine: States: no symptoms reported Hematologic/Lymphatic: States: no symptoms reported Past Medical History (General) - Patient Medical History Hx Seizures: No Hx Stroke: No Hx Dementia: No Hx Asthma: No Hx of COPD: No Hx Cardiac Disorders: No Hx Congestive Heart Failure: No Hx Pacemaker: No Hx Hypertension: No Hx Thyroid Disease: No Hx Diabetes: No Hx Gastroesophageal Reflux: No Hx Renal Disease: No Hx Cancer: No Hx of HIV: No Hx Hepatitis C: No Hx MRSA: No Surgical History: other - Vaccination History Hx Tetanus, Diphtheria Vaccination: No Hx Influenza Vaccination: No Hx Pneumococcal Vaccination: No - Social History Hx Tobacco Use: Yes - Vapes Hx Chewing Tobacco Use: No Hx Alcohol Use: No Hx Substance Use: No Hx Substance Use Treatment: No Hx Depression: No Hx Physical Abuse: No Hx Emotional Abuse: No Hx Suspected Abuse: No - Female History Hx Last Menstrual Period: 12/26/17 Patient : No Expected Date of Delivery:: 01/22/15 Family Medical History - Family History Maternal Grandparents Family History: No Known Living Status: Still Living Hx Family Hypertension: Yes Hx Family Diabetes: Yes - type 2 Hx Family;Other: Pt has no other known historys Mother Family History: No Known Physical Exam - Physical Exam General Appearance: Alert Eye Exam: bilateral normal Ears, Nose, Throat: hearing grossly normal, normal pharynx, other - Fractured right first mandibular molar. No swelling. NTTP. No exudates. Neck: non-tender, full range of motion, supple, other - No LAD Respiratory: lungs clear, normal breath sounds Cardiovascular/Chest: normal peripheral pulses, regular rate, rhythm, no edema Gastrointestinal/Abdominal: normal bowel sounds, non tender, soft Progress - Progress Progress: 02/11/18 12:53 Toradol 30 mg IM x one. Patient advised to contact a dentist and arrange a payment plan so that she can have the tooth treated. RX for Toradol and Clindamycin given. Departure - Departure Clinical Impression: Fractured tooth, Tobacco abuse counseling Disposition: Discharge to Home or Self Care Condition: Good Departure Forms: ED Discharge - Pt. Copy, Patient Portal Self Enrollment Instructions: DI for Mouth Pain, DI for Dental Pain Diet: other - as per your regular physician Activity: increase activity as tolerated Prescriptions: Clindamycin HCl 300 mg PO Q6HRS #10 cap Ketorolac Tromethamine [Toradol Tabs] 10 mg PO Q6HRS PRN #20 tab PRN Reason: Moderate Pain Home Medications: Ambulatory Orders [place] Carbonate 300 mg PO BID 06/11/16 Hydroxyzine Pamoate [Vistaril] 100 mg PO BID 05/11/17 Aripiprazole [Abilify] 5 mg PO DAILY 10/02/17 Acetamin W/Cod #3 Tab [Tylenol w/CODEINE #3] 1 ea PO Q6HR PRN #40 tab 12/14/17 Albuterol Inhaler [Ventolin Hfa Inhaler] 108 mcg IN Q6HRS PRN #1 inh 12/27/17 Azithromycin [Zithromax Z-Jerrell] 250 mg PO DAILY #6 tab 12/27/17 Benzonatate Perles [Tessalon Perles] 200 mg PO BID #40 cap 12/27/17 predniSONE 20 mg PO DAILY #7 tab 12/27/17 Cyclobenzaprine HCl [Flexeril] 10 mg PO TID #20 tab 01/21/18 Ketorolac Tromethamine [Toradol Tabs] 10 mg PO Q6HRS PRN #20 tab 01/21/18 Clindamycin HCl 300 mg PO Q6HRS #10 cap 02/11/18 Ketorolac Tromethamine [Toradol Tabs] 10 mg PO Q6HRS PRN #20 tab 02/11/18 Additional Instructions: Take medications as prescribed. Start contact dentist's offices today and try to find one that will arrange a payment plan with you. Return to the E.R. for temperature over 100.4 or increasing pain.
[2018-02-11 13:22] VITALS: BP 112/78
== END 2018-02-11 13:22 | disposition home or self-care (01) ==
LOC: ER 12:02
DX: S02.5XXA Fracture of tooth (traumatic), initial encounter for closed fracture (principal); F17.290 Nicotine dependence, other tobacco product, uncomplicated; Z88.0 Allergy status to penicillin; X58.XXXA Exposure to other specified factors, initial encounter; Y92.9 Unspecified place or not applicable

== ENCOUNTER 2018-03-01 11:35 | Emergency (ER) | payer OTHER ==
--- NOTE | 2018-03-01 13:20 | ED.PDOC ---
History of Present Illness - General Chief Complaint: Respiratory Problem Stated Complaint: productive cough, ear pain Time Seen by Provider: 03/01/18 13:07 Source: patient Exam Limitations: no limitations - History of Present Illness Comments: Amrita Baxter 27 y/o female stated that she has cough and nasal congestion since yesterday no fever,N/V.daughter with same symptoms.No hx of asthma. Timing/Duration: yesterday Cough Quality/Degree: dry cough Possible Cause: occasional episodes Improving Factors: nothing Worsening Factors: nothing Associated Symptoms: nasal congestion, other - muscale spasm Allergies/Adverse Reactions: Allergies Penicillins Allergy (Verified 12/27/17 10:49) Anaphylaxis Home Medications: Ambulatory Orders [place] Carbonate 300 mg PO BID 06/11/16 Hydroxyzine Pamoate [Vistaril] 100 mg PO BID 05/11/17 Azithromycin [Zithromax Z-Jerrell] 500 mg PO DAILY 3 Days #1 pack 03/01/18 Baclofen 20 mg PO BID PRN #14 tab 03/01/18 Benzonatate Perles [Tessalon Perles] 200 mg PO TID PRN #30 cap 03/01/18 HYDROcodone 5MG/APAP 325MG [[place] 5/325] 1 ea PO BID PRN 03/01/18 Review of Systems - Review of Systems Constitutional: States: no symptoms reported EENTM: States: see HPI Respiratory: States: see HPI Cardiology: States: no symptoms reported Gastrointestinal/Abdominal: States: no symptoms reported Genitourinary: States: no symptoms reported Past Medical History (General) - Patient Medical History Hx Seizures: No Hx Stroke: No Hx Dementia: No Hx Asthma: No Hx of COPD: No Hx Cardiac Disorders: No Hx Congestive Heart Failure: No Hx Pacemaker: No Hx Hypertension: No Hx Thyroid Disease: No Hx Diabetes: No Hx Gastroesophageal Reflux: No Hx Renal Disease: No Hx Cancer: No Hx of HIV: No Hx Hepatitis C: No Hx MRSA: No Surgical History: other - c- section,btl - Vaccination History Hx Tetanus, Diphtheria Vaccination: No Hx Influenza Vaccination: No Hx Pneumococcal Vaccination: No Immunizations Up to Date: No - Social History Hx Tobacco Use: Yes - uses a vape Hx Chewing Tobacco Use: No Hx Alcohol Use: No Hx Substance Use: No Hx Substance Use Treatment: No Hx Depression: Yes Hx Physical Abuse: No Hx Emotional Abuse: No Hx Suspected Abuse: No - Female History Patient is a Female of Child Bearing Age (10 -59 yrs old): Yes Hx Last Menstrual Period: 02/26/18 Patient : No - pt denies, pt had tubal - Triage Comment ED Triage Comment: Pt is c/o productive cough and left sided neck pain that radiats into left ear Family Medical History - Family History Maternal Grandparents Family History: No Known Living Status: Still Living Hx Family Hypertension: Yes Hx Family Diabetes: Yes - type 2 Hx Family;Other: Pt has no other known historys Mother Family History: No Known Physical Exam - Physical Exam General Appearance: Alert, Comfortable, No apparent distress Eye Exam: bilateral normal ENT Exam: normal ENT inspection, hearing grossly normal, TMs normal, nasal congestion Neck: non-tender, full range of motion, supple Respiratory: chest non-tender, lungs clear, normal breath sounds, no respiratory distress Cardiovascular/Chest: normal peripheral pulses, regular rate, rhythm, no murmur Gastrointestinal/Abdominal: normal bowel sounds, non tender, soft, no organomegaly Extremity: no pedal edema, no calf tenderness Neurologic: alert, oriented x 3 Skin Exam: normal color, warm/dry Progress - Progress Progress: 03/01/18 13:23 Vital Signs - 24 hr 03/01/18 12:07 Temperature 98.6 F Pulse Rate [ 87 Brachial] Respiratory 16 Rate Blood Pressure 120/77 [Right Arm] O2 Sat by Pulse 99 Oximetry - EKG/XRAY/CT XRAY: chest - no acute process/radiologist Departure - Departure Clinical Impression: Upper respiratory infection, acute Time of Disposition: 13:53 Disposition: Discharge to Home or Self Care Condition: Good Departure Forms: ED Discharge - Pt. Copy, Patient Portal Self Enrollment Prescriptions: Azithromycin [Zithromax Z-Jerrell] 500 mg PO DAILY 3 Days #1 pack Baclofen 20 mg PO BID PRN #14 tab PRN Reason: Muscle Spasms Benzonatate Perles [Tessalon Perles] 200 mg PO TID PRN #30 cap PRN Reason: Cough Home Medications: Ambulatory Orders [place] Carbonate 300 mg PO BID 06/11/16 Hydroxyzine Pamoate [Vistaril] 100 mg PO BID 05/11/17 Azithromycin [Zithromax Z-Jerrell] 500 mg PO DAILY 3 Days #1 pack 03/01/18 Baclofen 20 mg PO BID PRN #14 tab 03/01/18 Benzonatate Perles [Tessalon Perles] 200 mg PO TID PRN #30 cap 03/01/18 HYDROcodone 5MG/APAP 325MG [[place] 5325] 1 ea PO BID PRN 03/01/18 Additional Instructions: Follow up with primary Md 03 March 2018
--- NOTE | 2018-03-01 13:36 | RAD ---
EXAM DESCRIPTION: Chest,1 View CLINICAL HISTORY: 27 years Female, cough COMPARISON: Radiographs of the chest dated 12/27/2017. TECHNIQUE: AP radiograph of the chest was obtained. FINDINGS: Trachea is midline.The cardiomediastinal silhouette is normal in size. The pulmonary vasculature is within normal limits.The lungs are clear with no acute consolidation.No evidence of pleural effusions. IMPRESSION: No acute cardiopulmonary process. Electronically signed by: Maribeth Montano MD 03/01/2018 1:35 PM CDT
[2018-03-01 13:52] VITALS: BP 115/72; TEMP 98.3
[2018-03-01 14:17] VITALS: O2SAT 99
== END 2018-03-01 14:17 | disposition home or self-care (01) ==
LOC: ER 11:35
DX: J06.9 Acute upper respiratory infection, unspecified (principal); F32.9 Major depressive disorder, single episode, unspecified; F17.290 Nicotine dependence, other tobacco product, uncomplicated; Z88.0 Allergy status to penicillin

== ENCOUNTER 2018-03-02 12:57 | Emergency (ER) | payer OTHER ==
[2018-03-02 13:12] VITALS: TEMP 96.9
[2018-03-02] MEDS ORDERED: SODIUM CHLORIDE 0.9% 1000ML 1,000 ML IVS ONE (15:32)
--- NOTE | 2018-03-02 15:35 | ED.PDOC ---
History of Present Illness - General Chief Complaint: General Stated Complaint: medical clearance Time Seen by Provider: 03/02/18 15:26 Source: patient, police Exam Limitations: no limitations - History of Present Illness Initial Comments: POLICE NOTICED PT WEAVING ALL OVER THE ROAD. THEY BROUGHT HER IN FOR MEDICAL CLEARANCE PRIOR TO INCARCERATION. PT IS ALERT, LUCID, AND HAS NO PHYSICAL COMPLAINTS. Improving Factors: nothing Worsening Factors: nothing Associated Symptoms: denies symptoms Allergies/Adverse Reactions: Allergies Penicillins Allergy (Verified 12/27/17 10:49) Anaphylaxis Home Medications: Ambulatory Orders [place] Carbonate 300 mg PO BID 06/11/16 Hydroxyzine Pamoate [Vistaril] 100 mg PO BID 05/11/17 Azithromycin [Zithromax Z-Jerrell] 500 mg PO DAILY 3 Days #1 pack 03/01/18 Baclofen 20 mg PO BID PRN #14 tab 03/01/18 Benzonatate Perles [Tessalon Perles] 200 mg PO TID PRN #30 cap 03/01/18 HYDROcodone 5MG/APAP 325MG [[place] 5/325] 1 ea PO BID PRN 03/01/18 Review of Systems - Review of Systems Constitutional: Denies: chills, fever, malaise EENTM: Denies: ear pain, nose congestion, throat pain Respiratory: Denies: cough, short of breath Cardiology: Denies: chest pain, palpitations Gastrointestinal/Abdominal: Denies: abdominal pain, nausea, vomiting Genitourinary: States: no symptoms reported Musculoskeletal: States: no symptoms reported Skin: States: no symptoms reported Neurological: States: no symptoms reported Endocrine: States: no symptoms reported Hematologic/Lymphatic: States: no symptoms reported All other Systems: Reviewed and Negative Past Medical History (General) - Patient Medical History Hx Seizures: No Hx Stroke: No Hx Dementia: No Hx Asthma: No Hx of COPD: No Hx Cardiac Disorders: No Hx Congestive Heart Failure: No Hx Pacemaker: No Hx Hypertension: No Hx Thyroid Disease: No Hx Diabetes: No Hx Gastroesophageal Reflux: No Hx Renal Disease: No Hx Cancer: No Hx of HIV: No Hx Hepatitis C: No Hx MRSA: No Surgical History: no surgical history - Vaccination History Hx Tetanus, Diphtheria Vaccination: No Hx Influenza Vaccination: No Hx Pneumococcal Vaccination: No - Social History Hx Tobacco Use: Yes - uses a vape Hx Chewing Tobacco Use: No Hx Alcohol Use: No Hx Substance Use: No Hx Substance Use Treatment: No Hx Depression: Yes Hx Physical Abuse: No Hx Emotional Abuse: No Hx Suspected Abuse: No - Female History Hx Last Menstrual Period: 02/26/18 Patient : No - pt denies, pt had tubal Expected Date of Delivery:: 01/22/15 Family Medical History - Family History Maternal Grandparents Family History: No Known Living Status: Still Living Hx Family Hypertension: Yes Hx Family Diabetes: Yes - type 2 Hx Family;Other: Pt has no other known historys Mother Family History: No Known Physical Exam - Physical Exam General Appearance: Alert, Comfortable, No apparent distress Eye Exam: bilateral normal Ears, Nose, Throat: hearing grossly normal, normal ENT inspection, normal pharynx Neck: non-tender, full range of motion, supple Respiratory: chest non-tender, lungs clear, normal breath sounds Cardiovascular/Chest: normal peripheral pulses, regular rate, rhythm Peripheral Pulses: radial,right: 2+, radial,left: 2+ Gastrointestinal/Abdominal: normal bowel sounds, non tender, soft, no organomegaly, no pulsatile mass Back Exam: normal inspection, no CVA tenderness Extremity: normal range of motion, non-tender, normal inspection 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 THUS I AM ORDERING BOLUS AND REPEAT UDS. 03/02/18 16:52 PT WAS ABLE TO VOID AGAIN THUS UDS OBTAINED AND BOLUS DC'D. W/U NEG: CMP, EKG, UDS, UA, ETOH. CBC SHOWS WBC 14.2 AND NEUTS, IT IS NOT A CONCERNING LEVEL CLINICALLY AND PT IS ASX (NO INFECTIOUS C/O). Departure - Departure Clinical Impression: Medical clearance for incarceration Disposition: Shelter Condition: Good Departure Forms: ED Discharge - Pt. Copy, Patient Portal Self Enrollment Diet: resume usual diet Activity: increase activity as tolerated Home Medications: Ambulatory Orders [place] Carbonate 300 mg PO BID 06/11/16 Hydroxyzine Pamoate [Vistaril] 100 mg PO BID 05/11/17 Azithromycin [Zithromax Z-Jerrell] 500 mg PO DAILY 3 Days #1 pack 03/01/18 Baclofen 20 mg PO BID PRN #14 tab 03/01/18 Benzonatate Perles [Tessalon Perles] 200 mg PO TID PRN #30 cap 03/01/18 HYDROcodone 5MG/APAP 325MG [[place] 5325] 1 ea PO BID PRN 03/01/18
[2018-03-02 17:06] VITALS: BP 142/74; O2SAT 98
== END 2018-03-02 17:06 ==
LOC: ER 12:57
DX: Z02.89 Encounter for other administrative examinations (principal); F17.290 Nicotine dependence, other tobacco product, uncomplicated; Z88.0 Allergy status to penicillin

== ENCOUNTER 2018-06-01 10:32 | Emergency (ER) | payer OTHER ==
[2018-06-01 10:44] VITALS: TEMP 98.6; O2SAT 98
[2018-06-01] MEDS ORDERED: IBUPROFEN 200 MG TAB PO ONE (11:02)
[2018-06-01] MEDS ORDERED: CYCLOBENZAPRINE HCL 10 MG TAB PO ONE (11:02)
[2018-06-01] MEDS ORDERED: predniSONE 20 MG TAB PO ONE (11:02)
--- NOTE | 2018-06-01 11:05 | ED.PDOC ---
History of Present Illness - General Chief Complaint: General Stated Complaint: NECK PAIN WITH SPASMS Time Seen by Provider: 06/01/18 10:46 Source: patient Exam Limitations: no limitations - History of Present Illness Initial Comments: The patient is a 27-year-old female presenting to the emergency room secondary to muscle spasm of the paracervical spine muscles to the right side. Spasm is palpable adjacent to the transverse processes at the level of approximately C3-C4. She simply woke up like this. There is no spasm of the sternocleidomastoid. No tenderness to palpation really over the trapezius. No focal neurological changes. She has had a history of shingles on the neck but that was on the other side. No evidence of any skin changes currently. No f ever. No other symptoms. No neurological changes. No altered mental status. No headache. Timing/Duration: 24 hours Severity: moderate Improving Factors: nothing Worsening Factors: nothing Associated Symptoms: denies symptoms Allergies/Adverse Reactions: Allergies Penicillins Allergy (Verified 06/01/18 10:44) Anaphylaxis Home Medications: Ambulatory Orders Cyclobenzaprine HCl [Flexeril] 5 mg PO TID PRN #14 tab 06/01/18 predniSONE [Prednisone] 20 mg PO DAILY #5 tab 06/01/18 Review of Systems - Review of Systems Constitutional: States: no symptoms reported EENTM: States: no symptoms reported Respiratory: States: no symptoms reported Cardiology: States: no symptoms reported Gastrointestinal/Abdominal: States: no symptoms reported Genitourinary: States: no symptoms reported Musculoskeletal: States: neck pain Skin: States: no symptoms reported Neurological: States: no symptoms reported Endocrine: States: no symptoms reported All other Systems: No Change from Baseline Past Medical History (General) - Patient Medical History Hx Seizures: No Hx Stroke: No Hx Dementia: No Hx Asthma: No Hx of COPD: No Hx Cardiac Disorders: No Hx Congestive Heart Failure: No Hx Pacemaker: No Hx Hypertension: No Hx Thyroid Disease: No Hx Diabetes: No Hx Gastroesophageal Reflux: No Hx Renal Disease: No Hx Cancer: No Hx of HIV: No Hx Hepatitis C: No Hx MRSA: No - Vaccination History Hx Tetanus, Diphtheria Vaccination: No Hx Influenza Vaccination: No Hx Pneumococcal Vaccination: No Immunizations Up to Date: No - Social History Hx Tobacco Use: No Hx Chewing Tobacco Use: No Hx Alcohol Use: No Hx Substance Use: No Hx Substance Use Treatment: No Hx Depression: No Hx Physical Abuse: No Hx Emotional Abuse: No Hx Suspected Abuse: No - Female History Patient is a Female of Child Bearing Age (10 -59 yrs old): Yes Hx Last Menstrual Period: 02/26/18 Patient : No - pt denies, pt had tubal Expected Date of Delivery:: 01/22/15 Family Medical History - Family History Maternal Grandparents Family History: No Known Living Status: Still Living Hx Family Hypertension: Yes Hx Family Diabetes: Yes - type 2 Hx Family;Other: Pt has no other known historys Mother Family History: No Known Physical Exam - Physical Exam General Appearance: Alert, Comfortable, No apparent distress Eye Exam: bilateral normal Ears, Nose, Throat: hearing grossly normal, normal ENT inspection, normal pharynx Neck: other - see history of present illness. No palpable mass. No significant cervical lymphadenopathy. Pain is localized to the right lateral posterior neck. No step-off. No evidence of trauma. 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 She does appear to have some spasm of the paracervical spinal muscles adjacent to C3-C4 on the right side. No clinical evidence to suggest any shingles at this time otherwise. no trauma. She has had shingles on the left side in the past. The patient is being given a dose of prednisone and Flexeril here. She will be written for prednisone for the next 5 days and Flexeril 5 mg every 8 hours as needed for the next few days as well. She needs to use topical heat. She also needs to stretch out the muscles. ER warnings were given. Keep routine follow-up with primary care doctor. Departure - Departure Clinical Impression: Neck muscle spasm Disposition: Discharge to Home or Self Care Condition: Fair Departure Forms: ED Discharge - Pt. Copy, Patient Portal Self Enrollment Instructions: Muscle Spasms (DC) Diet: regular diet Activity: increase activity as tolerated Referrals: Guillermo Aguilar MD [Primary Care Provider] - 1-2 Weeks Prescriptions: Cyclobenzaprine HCl [Flexeril] 5 mg PO TID PRN #14 tab PRN Reason: Muscle Spasms predniSONE [Prednisone] 20 mg PO DAILY #5 tab Home Medications: Ambulatory Orders Cyclobenzaprine HCl [Flexeril] 5 mg PO TID PRN #14 tab 06/01/18 predniSONE [Prednisone] 20 mg PO DAILY #5 tab 06/01/18 Additional Instructions: the patient is a 27-year-old female presenting with what is essentially a crick in the neck. She does appear to have some spasm of the p aracervical spinal muscles adjacent to C3-C4 on the right side. No clinical evidence to suggest any shingles at this time otherwise. no trauma. She has had shingles on the left side in the past. The patient is being given a dose of prednisone and Flexeril here. She will be written for prednisone for the next 5 days and Flexeril 5 mg every 8 hours as needed for the next few days as well. She needs to use topical heat. She also needs to stretch out the muscles. Motrin can be used additionally as needed with food. ER warnings were given. Keep routine follow-up with primary care doctor.
[2018-06-01 11:21] VITALS: BP 121/91
== END 2018-06-01 11:21 | disposition home or self-care (01) ==
LOC: ER 10:32
DX: M62.838 Other muscle spasm (principal); Z88.0 Allergy status to penicillin

== ENCOUNTER 2018-06-20 11:41 | Emergency (ER) | payer OTHER ==
[2018-06-20] MEDS ORDERED: IBUPROFEN 200 MG TAB PO ONE (12:01)
[2018-06-20] MEDS ORDERED: ONDANSETRON ODT 8 MG TAB SL ONE (12:01)
[2018-06-20 12:10] VITALS: BP 143/87; TEMP 98.3
--- NOTE | 2018-06-20 13:19 | ED.PDOC ---
History of Present Illness - General Chief Complaint: General Stated Complaint: headache, stomach upset Time Seen by Provider: 06/20/18 12:01 Source: patient Exam Limitations: no limitations - History of Present Illness Initial Comments: the patient is a 27-year-old female presenting to the emergency room with her son at 7 years with similar symptoms. The patient has had symptoms longer than her son, having had symptoms for 3 days now. She has a headache as well as some mild nausea. She has had some low-grade fevers. She did have a cough as well. No shortness of breath. She does have some body aches and fatigue. Influenza is prevalent in the community. Timing/Duration: unsure Severity: moderate Improving Factors: nothing Associated Symptoms: diaphoresis, fever/chills, headaches, loss of appetite, malaise Allergies/Adverse Reactions: Allergies Penicillins Allergy (Verified 06/01/18 10:44) Anaphylaxis Home Medications: Ambulatory Orders Cyclobenzaprine HCl [Flexeril] 5 mg PO TID PRN #14 tab 06/01/18 predniSONE [Prednisone] 20 mg PO DAILY #5 tab 06/01/18 Oseltamivir Capsule [Tamiflu] 75 mg PO BID 5 Days #10 capsule 06/20/18 Review of Systems - Review of Systems Constitutional: States: chills, fever, malaise EENTM: States: nose congestion Respiratory: States: cough Cardiology: States: no symptoms reported Gastrointestinal/Abdominal: States: nausea Genitourinary: States: no symptoms reported Musculoskeletal: States: no symptoms reported Skin: States: no symptoms reported Neurological: States: headache Endocrine: States: no symptoms reported All other Systems: No Change from Baseline Past Medical History (General) - Patient Medical History Hx Seizures: No Hx Stroke: No Hx Dementia: No Hx Asthma: No Hx of COPD: No Hx Cardiac Disorders: No Hx Congestive Heart Failure: No Hx Pacemaker: No Hx Hypertension: No Hx Thyroid Disease: No Hx Diabetes: No Hx Gastroesophageal Reflux: No Hx Renal Disease: No Hx Cancer: No Hx of HIV: No Hx Hepatitis C: No Hx MRSA: No Surgical History: other - Vaccination History Hx Tetanus, Diphtheria Vaccination: No Hx Influenza Vaccination: No Hx Pneumococcal Vaccination: No - Social History Hx Tobacco Use: No Hx Chewing Tobacco Use: No Hx Alcohol Use: No Hx Substance Use: No Hx Substance Use Treatment: No Hx Depression: No Hx Physical Abuse: No Hx Emotional Abuse: No Hx Suspected Abuse: No - Female History Hx Last Menstrual Period: 02/26/18 Patient : No - pt denies, pt had tubal Expected Date of Delivery:: 01/22/15 Family Medical History - Family History Maternal Grandparents Family History: No Known Living Status: Still Living Hx Family Hypertension: Yes Hx Family Diabetes: Yes - type 2 Hx Family;Other: Pt has no other known historys Mother Family History: No Known Physical Exam - Physical Exam General Appearance: Alert, Comfortable, No apparent distress Eye Exam: bilateral normal Ears, Nose, Throat: hearing grossly normal, normal pharynx, nasal congestion Neck: full range of motion, supple Respiratory: lungs clear, normal breath sounds, no respiratory distress, no accessory muscle use Cardiovascular/Chest: normal peripheral pulses, regular rate, rhythm, no edema Peripheral Pulses: radial,right: 2+, radial,left: 2+ Gastrointestinal/Abdominal: non tender, soft Rectal Exam: deferred Back Exam: no CVA tenderness, no vertebral tenderness Extremity: non-tender, normal inspection, no pedal edema, normal capillary refill 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 Her son tested positive for flu a here. She actually tested negative though she has had symptoms longer making the test less reliable. She has tested negative for strep. She needs to keep herself well-hydrated. She will be treated with Tamiflu for the treatment course. She needs to alternate Motrin and Tylenol to reduce headache and control symptoms as well. Keep routine follow-up with primary care doctor otherwise. Departure - Departure Clinical Impression: Influenza A Disposition: Discharge to Home or Self Care Condition: Fair Departure Forms: ED Discharge - Pt. Copy, Patient Portal Self Enrollment Instructions: Flu, Adult (DC) Diet: regular diet Activity: increase activity as tolerated Referrals: Guillermo Aguilar MD [Primary Care Provider] - 1-2 Weeks Prescriptions: Oseltamivir Capsule [Tamiflu] 75 mg PO BID 5 Days #10 capsule Home Medications: Ambulatory Orders Cyclobenzaprine HCl [Flexeril] 5 mg PO TID PRN #14 tab 06/01/18 predniSONE [Prednisone] 20 mg PO DAILY #5 tab 06/01/18 Oseltamivir Capsule [Tamiflu] 75 mg PO BID 5 Days #10 capsule 06/20/18 Additional Instructions: the patient is a 27-year-old female presenting with what is most likely the flu. Her son tested positive for flu a here. She actually tested negative though she has had symptoms longer making the test less reliable. She has tested negative for strep. She needs to keep herself well-hydrated. She will be treated with Tamiflu for the treatment course. She needs to alternate Motrin and Tylenol to reduce headache and control symptoms as well. Keep routine follow-up with primary care doctor otherwise.
[2018-06-20 13:52] VITALS: O2SAT 97
== END 2018-06-20 13:51 | disposition home or self-care (01) ==
LOC: ER 11:41
DX: J10.1 Influenza due to other identified influenza virus with other respiratory manifestations (principal); Z88.0 Allergy status to penicillin

== ENCOUNTER 2018-06-27 15:24 | Emergency (ER) | payer OTHER ==
[2018-06-27] MEDS ORDERED: KETOROLAC TROMETHAMINE INJ 30 MG/ML VIAL IM ONE (15:56)
--- NOTE | 2018-06-27 15:59 | ED.PDOC ---
History of Present Illness - General Chief Complaint: Back Pain or Injury Time Seen by Provider: 06/27/18 15:38 Source: patient Exam Limitations: no limitations - History of Present Illness Initial Comments: Patient presents with low back pain. She said she was helping someone move furniture and the next day her left lower back was painful. It is constant and sharp in nature. Non-radiating. Worse with movement, better with rest. She has had previous episodes of the same after moving furniture. No saddle anesthesia nor incontinence. No other complaints. Timing/Duration: other - 2 days Severity: mild Improving Factors: rest Worsening Factors: movement Associated Symptoms: denies symptoms Allergies/Adverse Reactions: Allergies Penicillins Allergy (Verified 06/27/18 15:56) Anaphylaxis Home Medications: Ambulatory Orders Ketorolac Tromethamine [Toradol Tabs] 10 mg PO Q6HRS #12 tab 06/27/18 Quetiapine Fumarate [Seroquel] 25 mg PO BID 06/27/18 Review of Systems - Review of Systems Constitutional: States: no symptoms reported EENTM: States: no symptoms reported Respiratory: States: no symptoms reported Cardiology: States: no symptoms reported Gastrointestinal/Abdominal: States: no symptoms reported Genitourinary: States: no symptoms reported Musculoskeletal: States: see HPI Skin: States: no symptoms reported Neurological: States: no symptoms reported Endocrine: States: no symptoms reported Hematologic/Lymphatic: States: no symptoms reported Past Medical History (General) - Patient Medical History Hx Seizures: No Hx Stroke: No Hx Dementia: No Hx Asthma: No Hx of COPD: No Hx Cardiac Disorders: No Hx Congestive Heart Failure: No Hx Pacemaker: No Hx Hypertension: No Hx Thyroid Disease: No Hx Diabetes: No Hx Gastroesophageal Reflux: No Hx Renal Disease: No Hx Cancer: No Hx of HIV: No Hx Hepatitis C: No Hx MRSA: No Surgical History: other - Vaccination History Hx Tetanus, Diphtheria Vaccination: No Hx Influenza Vaccination: No Hx Pneumococcal Vaccination: No - Social History Hx Tobacco Use: - Smokes an E cig Hx Chewing Tobacco Use: No Hx Alcohol Use: No Hx Substance Use: No Hx Substance Use Treatment: No Hx Depression: No Hx Physical Abuse: No Hx Emotional Abuse: No Hx Suspected Abuse: No - Female History Patient is a Female of Child Bearing Age (10 -59 yrs old): Yes Hx Last Menstrual Period: 02/26/18 Patient : No Expected Date of Delivery:: 01/22/15 Family Medical History - Family History Maternal Grandparents Family History: No Known Living Status: Still Living Hx Family Hypertension: Yes Hx Family Diabetes: Yes - type 2 Hx Family;Other: Pt has no other known historys Mother Family History: No Known Physical Exam - Physical Exam General Appearance: Alert Eye Exam: bilateral normal Ears, Nose, Throat: normal ENT inspection Neck: non-tender, full range of motion, supple Respiratory: lungs clear, normal breath sounds Cardiovascular/Chest: normal peripheral pulses, regular rate, rhythm Gastrointestinal/Abdominal: normal bowel sounds, non tender, soft Back Exam: other - Mildly TTP over left quadratus lumborum. No spinous process tenderness. Pain with flexion at 20 degrees. Cross leg raise is positive at 30 degrees. Straight leg raise is positive at 15 degrees. Heel walking mildly aggravates the pain. No pain with rotation. Extremity: normal range of motion, non-tender, normal inspection Neurologic: no motor/sensory deficits, alert, normal mood/affect, oriented x 3 Skin Exam: normal color Progress - Progress Progress: 06/27/18 16:02 Toradol 30 mg IM x one. Patient filled a 30 day supply for Robaxin 13 days ago so RX for Flexeril withheld. Care instructions given. E.R. warnings given. Questions were elicited and answered. The patient voiced understanding and agreement with the plan. Departure - Departure Clinical Impression: Low back pain Disposition: Discharge to Home or Self Care Condition: Good Departure Forms: ED Discharge - Pt. Copy, Patient Portal Self Enrollment Instructions: DI for Low Back Pain Diet: resume usual diet Activity: increase activity as tolerated Referrals: Guillermo Aguilar MD [Primary Care Provider] - 1-2 Weeks Prescriptions: Ketorolac Tromethamine [Toradol Tabs] 10 mg PO Q6HRS #12 tab Home Medications: Ambulatory Orders Ketorolac Tromethamine [Toradol Tabs] 10 mg PO Q6HRS #12 tab 06/27/18 Quetiapine Fumarate [Seroquel] 25 mg PO BID 06/27/18 Additional Instructions: Get a Neoprene back brace to wear for two weeks while awake. Avoid lifting more than 20 pounds for at least two weeks. If pain is not gone in two weeks, see your regular doctor about further evaluation.
[2018-06-27 17:45] VITALS: O2SAT 99
[2018-06-27 17:46] VITALS: BP 132/79; TEMP 99.7
== END 2018-06-27 17:13 | disposition home or self-care (01) ==
LOC: ER 15:24
DX: M54.5 Low back pain (principal); F17.290 Nicotine dependence, other tobacco product, uncomplicated

== ENCOUNTER 2018-08-01 17:15 | Emergency (ER) | payer OTHER ==
[2018-08-01 17:26] VITALS: O2SAT 98
--- NOTE | 2018-08-01 17:34 | ED.PDOC ---
History of Present Illness - General Chief Complaint: General Stated Complaint: pain behind right ear Time Seen by Provider: 08/01/18 17:29 Source: patient, RN notes reviewed, Vital Signs reviewed Additional Information: 28 YEAR OLD PRESENTS WITH PAIN IN THE RIGHT SIDE OF THE NECK BELOW THE EAR LAST 2 DAYS NO ASSOCIATED FEVER CHILLS THE PAIN IS WORSE WITH MOVEMENTS OF THE NECK NO SYMPTOMS RELATED TOT HE EAR PHYSICAL EXAM AWAKE ALERT NORMAL VITAL SIGNS HEENT NORMAL NO MENINGEAL SIGNS THERE IS LOCAL TENDERNESS OVER THE RIGHT SIDE OF THE NECK OVER SCM NO PALPABLE LYMPHADENOPATHY SKIN OVER IT IS NORMAL WITHOUT SIGNS OF INFLAMATION / CELLULITIS - History of Present Illness Timing/Duration: 24 hours Severity: mild Improving Factors: nothing Worsening Factors: nothing Associated Symptoms: denies symptoms Allergies/Adverse Reactions: Allergies Penicillins Allergy (Verified 06/27/18 15:56) Anaphylaxis Home Medications: Ambulatory Orders Quetiapine Fumarate [Seroquel] 25 mg PO BID 06/27/18 Cyclobenzaprine HCl [Flexeril] 10 mg PO Q8HR #30 tab 08/01/18 Naproxen [Naprosyn] 500 mg PO Q12HR #20 tab 08/01/18 Review of Systems - Review of Systems Constitutional: States: no symptoms reported EENTM: States: no symptoms reported Respiratory: States: no symptoms reported Cardiology: States: no symptoms reported Gastrointestinal/Abdominal: States: no symptoms reported Genitourinary: States: no symptoms reported Musculoskeletal: States: no symptoms reported Skin: States: no symptoms reported Neurological: States: no symptoms reported Endocrine: States: no symptoms reported Hematologic/Lymphatic: States: no symptoms reported Past Medical History (General) - Patient Medical History Hx Seizures: No Hx Stroke: No Hx Dementia: No Hx Asthma: No Hx of COPD: No Hx Cardiac Disorders: No Hx Congestive Heart Failure: No Hx Pacemaker: No Hx Hypertension: No Hx Thyroid Disease: No Hx Diabetes: No Hx Gastroesophageal Reflux: No Hx Renal Disease: No Hx Cancer: No Hx of HIV: No Hx Hepatitis C: No Hx MRSA: No - Vaccination History Hx Tetanus, Diphtheria Vaccination: No Hx Influenza Vaccination: No Hx Pneumococcal Vaccination: No - Social History Hx Tobacco Use: - Vapes Hx Chewing Tobacco Use: No Hx Alcohol Use: No Hx Substance Use: No Hx Substance Use Treatment: No Hx Depression: No Hx Physical Abuse: No Hx Emotional Abuse: No Hx Suspected Abuse: No - Female History Patient is a Female of Child Bearing Age (10 -59 yrs old): Yes Hx Last Menstrual Period: 02/26/18 Patient : No Expected Date of Delivery:: 01/22/15 Family Medical History - Family History Maternal Grandparents Family History: No Known Living Status: Still Living Hx Family Hypertension: Yes Hx Family Diabetes: Yes - type 2 Hx Family;Other: Pt has no other known historys Mother Family History: No Known Physical Exam - Physical Exam General Appearance: Alert, Comfortable Eye Exam: left normal Ears, Nose, Throat: hearing grossly normal, normal ENT inspection, normal pharynx Neck: non-tender, full range of motion, other - SEE HPI Respiratory: chest non-tender, lungs clear, normal breath sounds, no respiratory distress, no accessory muscle use Cardiovascular/Chest: normal peripheral pulses, regular rate, rhythm, no edema, no gallop Gastrointestinal/Abdominal: normal bowel sounds, non tender, soft, no organomegaly Back Exam: normal inspection, no CVA tenderness Extremity: normal range of motion 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 Copy, Patient Portal Self Enrollment Referrals: Guillermo Aguilar MD [Primary Care Provider] - 1-2 Weeks Home Medications: Ambulatory Orders Quetiapine Fumarate [Seroquel] 25 mg PO BID 06/27/18 Cyclobenzaprine HCl [Flexeril] 10 mg PO Q8HR #30 tab 08/01/18 Naproxen [Naprosyn] 500 mg PO Q12HR #20 tab 08/01/18 Comments: FOLLOW UP WITH PCP
[2018-08-01 17:46] VITALS: BP 134/85; TEMP 98.9
== END 2018-08-01 17:45 | disposition home or self-care (01) ==
LOC: ER 17:15
DX: S16.1XXA Strain of muscle, fascia and tendon at neck level, initial encounter (principal); F17.290 Nicotine dependence, other tobacco product, uncomplicated; Z88.0 Allergy status to penicillin; X58.XXXA Exposure to other specified factors, initial encounter; Y92.9 Unspecified place or not applicable

== ENCOUNTER 2018-08-15 19:31 | Emergency (ER) | payer OTHER ==
[2018-08-15 20:03] VITALS: BP 141/88; TEMP 97.9; O2SAT 99
--- NOTE | 2018-08-15 20:29 | ED.PDOC ---
History of Present Illness - General Chief Complaint: Problem Stated Complaint: Irregular periods Time Seen by Provider: 08/15/18 19:35 Source: patient Exam Limitations: no limitations - History of Present Illness Initial Comments: the patient a 28-year-old female presenting to the emergency room secondary to 2-3 months of more frequent periods. There is no pain with her menses. No evidence of significant hemorrhage. No galactorrhea. No fever. No abdominal pain. She has had her tubes tied. The patient has had weight gain over the last year. She has recently changed her psychiatric medications.no easy bleeding or bruising. Timing/Duration: other - 2-3 months Severity: mild Improving Factors: nothing Worsening Factors: nothing Associated Symptoms: denies symptoms Allergies/Adverse Reactions: Allergies Penicillins Allergy (Verified 06/27/18 15:56) Anaphylaxis Home Medications: Ambulatory Orders Methylphenidate HCl [Ritalin] 10 mg PO BID 08/13/18 Tramadol HCl 50 mg PO Q8HR PRN 3 Days #9 tab 08/13/18 busPIRone HCL [Buspar] 5 mg PO BID 08/13/18 Review of Systems - Review of Systems Constitutional: States: no symptoms reported EENTM: States: no symptoms reported Respiratory: States: no symptoms reported Cardiology: States: no symptoms reported Gastrointestinal/Abdominal: States: no symptoms reported Genitourinary: States: see HPI Musculoskeletal: States: no symptoms reported Skin: States: no symptoms reported Neurological: States: no symptoms reported Endocrine: States: no symptoms reported All other Systems: No Change from Baseline Past Medical History (General) - Patient Medical History Hx Seizures: No Hx Stroke: No Hx Dementia: No Hx Asthma: No Hx of COPD: No Hx Cardiac Disorders: No Hx Congestive Heart Failure: No Hx Pacemaker: No Hx Hypertension: No Hx Thyroid Disease: No Hx Diabetes: No Hx Gastroesophageal Reflux: No Hx Renal Disease: No Hx Cancer: No Hx of HIV: No Hx Hepatitis C: No Hx MRSA: No - Vaccination History Hx Tetanus, Diphtheria Vaccination: No Hx Influenza Vaccination: No Hx Pneumococcal Vaccination: No Immunizations Up to Date: No - Social History Hx Tobacco Use: - vapes Hx Chewing Tobacco Use: No Hx Alcohol Use: No Hx Substance Use: No Hx Substance Use Treatment: No Hx Depression: No Hx Physical Abuse: No Hx Emotional Abuse: No Hx Suspected Abuse: No - Female History Patient is a Female of Child Bearing Age (10 -59 yrs old): Yes Hx Last Menstrual Period: 08/15/18 Patient : - denies Expected Date of Delivery:: 01/22/15 Family Medical History - Family History Maternal Grandparents Family History: No Known Living Status: Still Living Hx Family Hypertension: Yes Hx Family Diabetes: Yes - type 2 Hx Family;Other: Pt has no other known historys Mother Family History: No Known Physical Exam - Physical Exam General Appearance: Alert, Comfortable, No apparent distress Eye Exam: bilateral normal Ears, Nose, Throat: hearing grossly normal, normal pharynx Neck: full range of motion Respiratory: no respiratory distress, no accessory muscle use Cardiovascular/Chest: normal peripheral pulses, no edema, other - regular rate Peripheral Pulses: radial,right: 2+, radial,left: 2+ Gastrointestinal/Abdominal: non tender, soft Rectal Exam: deferred Back Exam: normal inspection Extremity: normal range of motion, no pedal edema, no calf tenderness, normal capillary refill 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 There is no evidence of significant hemorrhage or significant bleeding diatheses and the patient is not . She does need follow-up with her primary care doctor or detective lieutenant for further workup if this continues. ER warnings were given for any acute worsening. Vital signs are stable. Departure - Departure Clinical Impression: Dysfunctional uterine bleeding Disposition: Discharge to Home or Self Care Condition: Fair Departure Forms: ED Discharge - Pt. Copy, Patient Portal Self Enrollment Instructions: Heavy Periods (DC) Diet: regular diet Activity: increase activity as tolerated Referrals: Guillermo Aguilar MD [Primary Care Provider] - 1-2 Weeks Home Medications: Ambulatory Orders Methylphenidate HCl [Ritalin] 10 mg PO BID 08/13/18 Tramadol HCl 50 mg PO Q8HR PRN 3 Days #9 tab 08/13/18 busPIRone HCL [Buspar] 5 mg PO BID 08/13/18 Additional Instructions: the patient is a 28-year-old female presenting to emergency room secondary to a few months of dysfunctional uterine bleeding. There is no evidence of significant hemorrhage or significant bleeding diatheses and the patient is not . She does need follow-up with her primary care doctor or detective lieutenant for further workup if this continues. ER warnings were given for any acute worsening. Vital signs are stable. I do recommend weight loss and routine exercise.
== END 2018-08-15 20:30 | disposition home or self-care (01) ==
LOC: ER 19:31
DX: N93.8 Other specified abnormal uterine and vaginal bleeding (principal); F17.290 Nicotine dependence, other tobacco product, uncomplicated; Z79.899 Other long term (current) drug therapy; Z88.0 Allergy status to penicillin

== ENCOUNTER 2018-09-03 20:23 | Emergency (ER) | payer OTHER ==
--- NOTE | 2018-09-03 20:54 | ED.PDOC ---
History of Present Illness - General Chief Complaint: ENT Problem Stated Complaint: left ear pain with radiation into face Time Seen by Provider: 09/03/18 20:38 Source: patient, RN notes reviewed, Vital Signs reviewed Exam Limitations: no limitations - History of Present Illness Initial Comments: c/o left ear pain starting today similar to previous episodes of OE. Has been swimming. Timing/Duration: gradual Severity: moderate EENT Location: ear (L) Prearrival Treatment: no prearrival treatment Improving Factors: nothing Worsening Factors: nothing Associated Symptoms: change in hearing Allergies/Adverse Reactions: Allergies Penicillins Allergy (Verified 06/27/18 15:56) Anaphylaxis Home Medications: Ambulatory Orders Methylphenidate HCl [Ritalin] 10 mg PO BID 08/13/18 Tramadol HCl 50 mg PO Q8HR PRN 3 Days #9 tab 08/13/18 busPIRone HCL [Buspar] 5 mg PO BID 08/13/18 Acetaminophen W/ Codeine [Tylenol W/ CODEINE #3] 1 ea PO Q8HRS PRN 3 Days #9 09/03/18 Steve/Poly/Hc Otic Susp [Cortisporin Otic Susp] 4 drop LEFT_EAR Q6H 10 Days #10 days 09/03/18 Review of Systems - Review of Systems Constitutional: States: no symptoms reported EENTM: States: see HPI Respiratory: States: no symptoms reported Gastrointestinal/Abdominal: States: no symptoms reported Musculoskeletal: States: no symptoms reported Skin: States: no symptoms reported Neurological: States: headache - mild, diffuse Hematologic/Lymphatic: States: no symptoms reported Past Medical History (General) - Patient Medical History Hx Seizures: No Hx Stroke: No Hx Dementia: No Hx Asthma: No Hx of COPD: No Hx Cardiac Disorders: No Hx Congestive Heart Failure: No Hx Pacemaker: No Hx Hypertension: No Hx Thyroid Disease: No Hx Diabetes: No Hx Gastroesophageal Reflux: No Hx Renal Disease: No Hx Cancer: No Hx of HIV: No Hx Hepatitis C: No Hx MRSA: No - Vaccination History Hx Tetanus, Diphtheria Vaccination: No Hx Influenza Vaccination: No Hx Pneumococcal Vaccination: No - Social History Hx Tobacco Use: - vapes Hx Chewing Tobacco Use: No Hx Alcohol Use: No Hx Substance Use: No Hx Substance Use Treatment: No Hx Depression: No Hx Physical Abuse: No Hx Emotional Abuse: No Hx Suspected Abuse: No - Female History Hx Last Menstrual Period: 08/15/18 Patient : - denies Expected Date of Delivery:: 01/22/15 Family Medical History - Family History Maternal Grandparents Family History: No Known Living Status: Still Living Hx Family Hypertension: Yes Hx Family Diabetes: Yes - type 2 Hx Family;Other: Pt has no other known historys Mother Family History: No Known Father Living Status: Still Living Hx Family;Other: leukemia] Physical Exam - Physical Exam General Appearance: Alert, Comfortable, No apparent distress Eye Exam: bilateral normal Ear Exam: right ear: auricle normal - pain left, canal normal - discharge & edema, TM normal Nasal Exam: normal inspection Neck: full range of motion, supple, normal inspection 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 Copy, Patient Portal Self Enrollment Instructions: DI for Otitis Externa, DI for Ear Pain-Adult Referrals: Guillermo Aguilar MD [Primary Care Provider] - 09/07/18 Prescriptions: Acetaminophen W/ Codeine [Tylenol W/ CODEINE #3] 1 ea PO Q8HRS PRN 3 Days #9 PRN Reason: Moderate Pain Steve/Poly/Hc Otic Susp [Cortisporin Otic Susp] 4 drop LEFT_EAR Q6H 10 Days #10 days Home Medications: Ambulatory Orders Methylphenidate HCl [Ritalin] 10 mg PO BID 08/13/18 Tramadol HCl 50 mg PO Q8HR PRN 3 Days #9 tab 08/13/18 busPIRone HCL [Buspar] 5 mg PO BID 08/13/18 Acetaminophen W/ Codeine [Tylenol W/ CODEINE #3] 1 ea PO Q8HRS PRN 3 Days #9 09/03/18 Steve/Poly/Hc Otic Susp [Cortisporin Otic Susp] 4 drop LEFT_EAR Q6H 10 Days #10 days 09/03/18
[2018-09-03 20:55] VITALS: BP 145/97; TEMP 98.5; O2SAT 100
[2018-09-03] MEDS: NEO/POLY/HC OTIC SUSP 10 ML BTTL LEFT_EAR ONE (20:56)
[2018-09-03] MEDS: HYDROcodone 10MG/APAP 325MG 1 EA TAB PO ONE (20:56)
== END 2018-09-03 21:03 | disposition home or self-care (01) ==
LOC: ER 20:23
DX: H60.332 Swimmer's ear, left ear (principal); F17.290 Nicotine dependence, other tobacco product, uncomplicated; Z79.899 Other long term (current) drug therapy; Z88.0 Allergy status to penicillin

== ENCOUNTER 2018-09-09 18:33 | Emergency (ER) | payer OTHER ==
[2018-09-09 19:12] VITALS: O2SAT 99
--- NOTE | 2018-09-09 19:26 | RAD ---
EXAM DESCRIPTION: XR Ankle,Left 3 Views CLINICAL HISTORY: 28 years Female left ankle pain, unknown date of injury TECHNIQUE: Three views of the left ankle are provided. COMPARISON: No prior exams provided for comparison. FINDINGS: There is no acute left ankle fracture or dislocation. The ankle mortise and talar dome are preserved. Visualized mid foot and hindfoot joint spaces are normal in appearance. There are no aggressive osseous lesions. There is an 8 mm linear radiodensity deep to the skin, plantar to the midfoot. This is visualized on the lateral view only. Correlate clinically. IMPRESSION: Normal appearance of the left ankle. Possible linear radiodensity deep to the skin plantar to the midfoot. Electronically signed by: Monse Alcala MD 09/09/2018 7:23 PM CDT
--- NOTE | 2018-09-09 19:27 | ED.PDOC ---
History of Present Illness - General Chief Complaint: Lower Extremity Injury Stated Complaint: left ankle pain, unkown injury Time Seen by Provider: 09/09/18 19:07 Source: patient Exam Limitations: no limitations - History of Present Illness Initial Comments: Karen Baxter 28 y/o female came to ER with dull left foot pain since yesterday;Denies history of trauma but stated she had been chasing her four kids yesterday running around but denies history of fall or twisting motion left foot/ankle. Occurred: yesterday Pain - Lower Extremity: moderate: Left Foot Method of Injury: unknown Improving Factors: rest Worsening Factors: movement Associated Symptoms: pain Allergies/Adverse Reactions: Allergies Penicillins Allergy (Verified 06/27/18 15:56) Anaphylaxis Home Medications: Ambulatory Orders Methylphenidate HCl [Ritalin] 10 mg PO BID 08/13/18 Tramadol HCl 50 mg PO Q8HR PRN 3 Days #9 tab 08/13/18 busPIRone HCL [Buspar] 5 mg PO BID 08/13/18 Acetaminophen W/ Codeine [Tylenol W/ CODEINE #3] 1 ea PO Q8HRS PRN 3 Days #9 09/03/18 Steve/Poly/Hc Otic Susp [Cortisporin Otic Susp] 4 drop LEFT_EAR Q6H 10 Days #10 days 09/03/18 Review of Systems - Review of Systems Musculoskeletal: States: see HPI All other Systems: Reviewed and Negative, No Change from Baseline Past Medical History (General) - Patient Medical History Hx Seizures: No Hx Stroke: No Hx Dementia: No Hx Asthma: No Hx of COPD: No Hx Cardiac Disorders: No Hx Congestive Heart Failure: No Hx Pacemaker: No Hx Hypertension: No Hx Thyroid Disease: No Hx Diabetes: No Hx Gastroesophageal Reflux: No Hx Renal Disease: No Hx Cancer: No Hx of HIV: No Hx Hepatitis C: No Hx MRSA: No Hx Other PMH: Yes - BD Surgical History: other - Vaccination History Hx Tetanus, Diphtheria Vaccination: No Hx Influenza Vaccination: No Hx Pneumococcal Vaccination: No Immunizations Up to Date: No - Social History Hx Tobacco Use: - vapes Hx Chewing Tobacco Use: No Hx Alcohol Use: No Hx Substance Use: No Hx Substance Use Treatment: No Hx Depression: No Hx Physical Abuse: No Hx Emotional Abuse: No Hx Suspected Abuse: No - Activities of Daily Living Patient Lives Alone: No - Female History Patient is a Female of Child Bearing Age (10 -59 yrs old): No Hx Last Menstrual Period: 08/15/18 Patient : No Family Medical History - Family History Maternal Grandparents Family History: No Known Living Status: Still Living Hx Family Hypertension: Yes Hx Family Diabetes: Yes - type 2 Hx Family;Other: Pt has no other known historys Father Living Status: Still Living Hx Family;Other: leukemia] Mother Family History: No Known Physical Exam - Physical Exam General Appearance: Alert, Comfortable, No apparent distress Eyes, Ears, Nose, Throat: PERRL/EOMI, normal ENT inspection Neck: non-tender, full range of motion, supple, normal inspection Cardiovascular/Respiratory: regular rate, rhythm, no M/R/G, normal peripheral pulses, normal breath sounds Gastrointestinal/Abdominal: non-tender, no organomegaly Back: normal inspection, no CVA tenderness, no vertebral tenderness Thigh/Hip: normal inspection, non-tender, no evidence of injury Leg: normal inspection, non-tender, no evidence of injury Knee: normal inspection, non-tender, no evidence of injury Ankle: normal inspection, non-tender, no evidence of injury Foot: bone tenderness - left foot, soft tissue tenderness - left foot, other - no signs of external injury Progress - Progress Progress: 09/09/18 19:29 Vital Signs - 8 hr 09/09/18 18:56 Temperature 98.4 F Pulse Rate [ 92 H left] Respiratory 18 Rate Blood Pressure 147/90 [left] O2 Sat by Pulse 99 Oximetry - EKG/XRAY/CT XRAY: left foot no fracture linear density one view Departure - Departure Clinical Impression: Foot pain, left Time of Disposition: 19:57 Disposition: Discharge to Home or Self Care Condition: Fair Departure Forms: ED Discharge - Pt. Copy, Patient Portal Self Enrollment Instructions: Foot Sprain (DC) Referrals: Guillermo Aguilar MD [Primary Care Provider] - 1-2 Weeks Home Medications: Ambulatory Orders Methylphenidate HCl [Ritalin] 10 mg PO BID 08/13/18 Tramadol HCl 50 mg PO Q8HR PRN 3 Days #9 tab 08/13/18 busPIRone HCL [Buspar] 5 mg PO BID 08/13/18 Acetaminophen W/ Codeine [Tylenol W/ CODEINE #3] 1 ea PO Q8HRS PRN 3 Days #9 09/03/18 Steve/Poly/Hc Otic Susp [Cortisporin Otic Susp] 4 drop LEFT_EAR Q6H 10 Days #10 days 09/03/18 Additional Instructions: Warm epsom salt soak 20 minutes 3 x a day during Waking hours only until better;Follow up with primary Md 15 Sep 2018 for recheck
[2018-09-09] MEDS ORDERED: traMADol HCL 50 MG (ER DISP) # 6 TABS PO ONE (19:58)
[2018-09-09 20:13] VITALS: BP 118/60; TEMP 98.2
== END 2018-09-09 20:13 | disposition home or self-care (01) ==
LOC: ER 18:33
DX: M79.672 Pain in left foot (principal); F17.290 Nicotine dependence, other tobacco product, uncomplicated; Z79.899 Other long term (current) drug therapy; Z88.0 Allergy status to penicillin

== ENCOUNTER 2018-09-17 11:10 | Emergency (ER) | payer OTHER ==
--- NOTE | 2018-09-17 11:47 | ED.PDOC ---
History of Present Illness - General Chief Complaint: General Stated Complaint: neck and foot pain Time Seen by Provider: 09/17/18 11:38 Source: patient Exam Limitations: no limitations - History of Present Illness Initial Comments: Karen Baxter 28 y/o female came to er with sharp left foot pain for the last 5 days seen 09/11/2018 here at ER but stated left foot still swelled up and painful on weight bearing No history of trauma but started to hurt 5 days ago after she was running around with her children.Had left foot x- ray no fractre but with linear density noted per radiologist report.Also had been huring on the left side of her neck today no history of trauma but stated might have slept wrong. Timing/Duration: constant, other - 5 days Severity: moderate Improving Factors: rest Worsening Factors: movement Associated Symptoms: denies symptoms Allergies/Adverse Reactions: Allergies Penicillins Allergy (Verified 06/27/18 15:56) Anaphylaxis Home Medications: Ambulatory Orders Methylphenidate HCl [Ritalin] 10 mg PO BID 08/13/18 Tramadol HCl 50 mg PO Q8HR PRN 3 Days #9 tab 08/13/18 busPIRone HCL [Buspar] 5 mg PO BID 08/13/18 Acetaminophen W/ Codeine [Tylenol W/ CODEINE #3] 1 ea PO Q8HRS PRN 3 Days #9 09/03/18 Steve/Poly/Hc Otic Susp [Cortisporin Otic Susp] 4 drop LEFT_EAR Q6H 10 Days #10 days 09/03/18 Methocarbamol [Robaxin] 750 mg PO BID #14 tab 09/17/18 Review of Systems - Review of Systems Constitutional: States: no symptoms reported EENTM: States: no symptoms reported Respiratory: States: no symptoms reported Cardiology: States: no symptoms reported Musculoskeletal: States: see HPI, joint pain, neck pain All other Systems: Reviewed and Negative, No Change from Baseline Past Medical History (General) - Patient Medical History Hx Seizures: No Hx Stroke: No Hx Dementia: No Hx Asthma: No Hx of COPD: No Hx Cardiac Disorders: No Hx Congestive Heart Failure: No Hx Pacemaker: No Hx Hypertension: No Hx Thyroid Disease: No Hx Diabetes: No Hx Gastroesophageal Reflux: No Hx Renal Disease: No Hx Cancer: No Hx of HIV: No Hx Hepatitis C: No Hx MRSA: No Surgical History: no surgical history - Vaccination History Hx Tetanus, Diphtheria Vaccination: No Hx Influenza Vaccination: No Hx Pneumococcal Vaccination: No - Social History Hx Tobacco Use: - vapes Hx Chewing Tobacco Use: No Hx Alcohol Use: No Hx Substance Use: No Hx Substance Use Treatment: No Hx Depression: No Hx Physical Abuse: No Hx Emotional Abuse: No Hx Suspected Abuse: No - Female History Hx Last Menstrual Period: 09/14/18 Patient : No Family Medical History - Family History Maternal Grandparents Family History: No Known Living Status: Still Living Hx Family Hypertension: Yes Hx Family Diabetes: Yes - type 2 Hx Family;Other: Pt has no other known historys Father Living Status: Still Living Hx Family;Other: leukemia] Mother Family History: No Known Physical Exam - Physical Exam General Appearance: Alert, Comfortable, No apparent distress Eye Exam: bilateral normal Ears, Nose, Throat: hearing grossly normal, normal ENT inspection Neck: supple, normal inspection, limited range of motion - right lateral flexion, tender lateral Respiratory: chest non-tender, lungs clear, normal breath sounds, no respiratory distress Cardiovascular/Chest: normal peripheral pulses, regular rate, rhythm, no murmur Peripheral Pulses: radial,right: 2+, radial,left: 2+ Gastrointestinal/Abdominal: normal bowel sounds, non tender, soft, no organomegaly Back Exam: normal inspection, no CVA tenderness, no vertebral tenderness Extremity: no pedal edema, no calf tenderness, other - tenderness left foot Neurologic: alert, oriented x 3 Skin Exam: normal color, warm/dry Lymphatic: no adenopathy Progress - Progress Progress: 09/17/18 12:51 Vital Signs 09/17/18 12:37 Temperature 98.2 F Pulse Rate [ 88 Left Radial] Respiratory 20 Rate Blood Pressure 114/80 [Left Arm] O2 Sat by Pulse 99 Oximetry 09/17/18 12:51 Discuss all x-rays with patient no acute abnormalities noted Departure - Departure Clinical Impression: Torticollis, spasmodic, Left foot pain Time of Disposition: 12:53 Disposition: Discharge to Home or Self Care Departure Forms: ED Discharge - Pt. Copy, Patient Portal Self Enrollment Instructions: Torticollis (DC), Neck Stretches Referrals: Buster Lou MD [Primary Care Provider] - 1-2 Weeks Prescriptions: Methocarbamol [Robaxin] 750 mg PO BID #14 tab Home Medications: Ambulatory Orders Methylphenidate HCl [Ritalin] 10 mg PO BID 08/13/18 Tramadol HCl 50 mg PO Q8HR PRN 3 Days #9 tab 08/13/18 busPIRone HCL [Buspar] 5 mg PO BID 08/13/18 Acetaminophen W/ Codeine [Tylenol W/ CODEINE #3] 1 ea PO Q8HRS PRN 3 Days #9 09/03/18 Steve/Poly/Hc Otic Susp [Cortisporin Otic Susp] 4 drop LEFT_EAR Q6H 10 Days #10 days 09/03/18 Methocarbamol [Robaxin] 750 mg PO BID #14 tab 09/17/18 Additional Instructions: May take over the counter Motrin 3 tablets 3 x a day for pain until better;Elevate left foot 20 degrees at bedtime until better;Follow up with primary Md 20 sep 2018 for recheck
[2018-09-17] MEDS ORDERED: KETOROLAC TROMETHAMINE INJ 30 MG/ML VIAL IM ONE (11:52)
[2018-09-17] MEDS ORDERED: ORPHENADRINE CITRATE 30 MG/ML AMP IM ONE (11:52)
--- NOTE | 2018-09-17 12:41 | RAD ---
EXAM DESCRIPTION: Left foot, 3 radiographs CLINICAL HISTORY: Foot pain FINDINGS/ IMPRESSION: Normal mineralization. Normal alignment No focal demineralization or inflammatory erosion. No fracture or acute osteochondral lesion. Bipartite medial sesamoid. No diagnostic soft tissue abnormality of the foot Electronically signed by: Ramin Reyez MD 09/17/2018 12:39 PM CDT
--- NOTE | 2018-09-17 12:41 | RAD ---
EXAM DESCRIPTION: Cervical Spine,3 Views CLINICAL HISTORY: 28 years Female, pain COMPARISON: None. FINDINGS: 3 views of the cervical spine show vertebral body heights to be maintained. Normal alignment of the cervical spine is seen. No disc space narrowing is seen. C1-2 relationship appears maintained. Mild calcification in the left mid neck could represent carotid artery calcification. Incidentally noted maxillary molar projecting in the location of the floor of the right maxillary sinus. IMPRESSION: Unremarkable cervical spine series. Left neck soft tissue calcification could represent carotid artery calcification versus sialolithiasis. Electronically signed by: Errol Hinton MD 09/17/2018 12:39 PM CDT
[2018-09-17 12:50] VITALS: TEMP 98.2; O2SAT 99
[2018-09-17 13:33] VITALS: BP 131/87
== END 2018-09-17 13:35 | disposition home or self-care (01) ==
LOC: ER 11:10
DX: M79.672 Pain in left foot (principal); M43.6 Torticollis; F17.290 Nicotine dependence, other tobacco product, uncomplicated; Z79.899 Other long term (current) drug therapy; Z88.0 Allergy status to penicillin
CPT/HCPCS: 72040; 73630; J1885; J2360

== ENCOUNTER 2018-10-18 10:25 | Emergency (ER) | payer OTHER ==
[2018-10-18 10:34] VITALS: TEMP 97.9
[2018-10-18] MEDS: KETOROLAC TROMETHAMINE INJ 30 MG/ML VIAL IM ONE (11:09)
--- NOTE | 2018-10-18 11:12 | ED.PDOC ---
History of Present Illness - General Chief Complaint: General Stated Complaint: EARS AND TOOTH ACHE Time Seen by Provider: 10/18/18 10:56 Source: patient Exam Limitations: no limitations - History of Present Illness Initial Comments: Patient presents with acute on chronic toothache. It is the right 2nd mandibular molar. She has had problems with it before. She says that it has been hurting worse for two days and it is causing her to have ear pain as well. It is constant and throbbing, worse with eating, better with resting. No other symptoms. Patient has a dental appointment coming up in November. Timing/Duration: changing over time Severity: moderate Improving Factors: rest Worsening Factors: movement Associated Symptoms: other - as in HPI Allergies/Adverse Reactions: Allergies Penicillins Allergy (Verified 10/18/18 10:34) Anaphylaxis Home Medications: Ambulatory Orders Methylphenidate HCl [Ritalin] 10 mg PO BID 08/13/18 Tramadol HCl 50 mg PO Q8HR PRN 3 Days #9 tab 08/13/18 busPIRone HCL [Buspar] 5 mg PO BID 08/13/18 Acetaminophen W/ Codeine [Tylenol W/ CODEINE #3] 1 ea PO Q8HRS PRN 3 Days #9 09/03/18 Steve/Poly/Hc Otic Susp [Cortisporin Otic Susp] 4 drop LEFT_EAR Q6H 10 Days #10 days 09/03/18 Methocarbamol [Robaxin] 750 mg PO BID #14 tab 09/17/18 Cephalexin Monohydrate [Keflex] 500 mg PO TID #30 cap 09/23/18 Tramadol HCl [Ultram] 50 mg PO Q6HR PRN #15 tab 09/23/18 Clindamycin HCl [Cleocin] 150 mg PO Q6HR #40 cap 10/18/18 Ketorolac Tromethamine [Toradol Tabs] 10 mg PO Q6HRS PRN #12 tab 10/18/18 Review of Systems - Review of Systems Constitutional: States: no symptoms reported EENTM: States: see HPI Cardiology: States: no symptoms reported Gastrointestinal/Abdominal: States: no symptoms reported Genitourinary: States: no symptoms reported Musculoskeletal: States: no symptoms reported Skin: States: no symptoms reported Neurological: States: no symptoms reported Endocrine: States: no symptoms reported Hematologic/Lymphatic: States: no symptoms reported Past Medical History (General) - Patient Medical History Hx Seizures: No Hx Stroke: No Hx Dementia: No Hx Asthma: No Hx of COPD: No Hx Cardiac Disorders: No Hx Congestive Heart Failure: No Hx Pacemaker: No Hx Hypertension: No Hx Thyroid Disease: No Hx Diabetes: No Hx Gastroesophageal Reflux: No Hx Renal Disease: No Hx Cancer: No Hx of HIV: No Hx Hepatitis C: No Hx MRSA: No - Vaccination History Hx Tetanus, Diphtheria Vaccination: No Hx Influenza Vaccination: No Hx Pneumococcal Vaccination: No Immunizations Up to Date: No - Social History Hx Tobacco Use: Yes Hx Chewing Tobacco Use: No Hx Alcohol Use: No Hx Substance Use: No Hx Substance Use Treatment: No Hx Depression: No Hx Physical Abuse: No Hx Emotional Abuse: No Hx Suspected Abuse: No - Female History Patient is a Female of Child Bearing Age (10 -59 yrs old): Yes Hx Last Menstrual Period: 09/14/18 Patient : No Expected Date of Delivery:: 01/22/15 Family Medical History - Family History Maternal Grandparents Family History: No Known Living Status: Still Living Hx Family Hypertension: Yes Hx Family Diabetes: Yes - type 2 Hx Family;Other: Pt has no other known historys Father Living Status: Still Living Hx Family;Other: leukemia] Mother Family History: No Known Physical Exam - Physical Exam General Appearance: Alert Eye Exam: bilateral normal Ears, Nose, Throat: normal pharynx, other - TMs clear. Poor dentition. There are multiple caries including on the right 2nd mandibular molar. It is mildly TTP with no exudates. No swelling. Neck: non-tender, full range of motion, supple, other - No lymphadenopathy Respiratory: lungs clear, normal breath sounds Cardiovascular/Chest: normal peripheral pulses, regular rate, rhythm Progress - Progress Progress: 10/18/18 11:14 Toradol 30 mg IM x one. Patient given RX for Toradol and Clindamycin and instructed to call her dentist today and see if she can get an earlier appointment. 10/18/18 11:38 Departure - Departure Clinical Impression: Dental caries Disposition: Discharge to Home or Self Care Condition: Good Departure Forms: ED Discharge - Pt. Copy, Patient Portal Self Enrollment Diet: other - as per your regular doctor Activity: increase activity as tolerated Referrals: Buster Lou MD [Primary Care Provider] - 1-2 Weeks Prescriptions: Clindamycin HCl [Cleocin] 150 mg PO Q6HR #40 cap Ketorolac Tromethamine [Toradol Tabs] 10 mg PO Q6HRS PRN #12 tab PRN Reason: Pain Home Medications: Ambulatory Orders Methylphenidate HCl [Ritalin] 10 mg PO BID 08/13/18 Tramadol HCl 50 mg PO Q8HR PRN 3 Days #9 tab 08/13/18 busPIRone HCL [Buspar] 5 mg PO BID 08/13/18 Acetaminophen W/ Codeine [Tylenol W/ CODEINE #3] 1 ea PO Q8HRS PRN 3 Days #9 09/03/18 Steve/Poly/Hc Otic Susp [Cortisporin Otic Susp] 4 drop LEFT_EAR Q6H 10 Days #10 days 09/03/18 Methocarbamol [Robaxin] 750 mg PO BID #14 tab 09/17/18 Cephalexin Monohydrate [Keflex] 500 mg PO TID #30 cap 09/23/18 Tramadol HCl [Ultram] 50 mg PO Q6HR PRN #15 tab 09/23/18 Clindamycin HCl [Cleocin] 150 mg PO Q6HR #40 cap 10/18/18 Ketorolac Tromethamine [Toradol Tabs] 10 mg PO Q6HRS PRN #12 tab 10/18/18 Additional Instructions: Call your dentist today and see if you can get an earlier appointment date. Take medications as prescribed. Return to the E.R. for a temperature above 100.3.
[2018-10-18 11:44] VITALS: BP 128/82; O2SAT 97
== END 2018-10-18 11:45 | disposition home or self-care (01) ==
LOC: ER 10:25
DX: K02.9 Dental caries, unspecified (principal); Z87.891 Personal history of nicotine dependence; Z88.0 Allergy status to penicillin; Z79.899 Other long term (current) drug therapy

== ENCOUNTER 2018-11-23 20:10 | Emergency (ER) | payer OTHER ==
--- NOTE | 2018-11-23 20:35 | ED.PDOC ---
History of Present Illness - General Chief Complaint: Dental/Mouth Stated Complaint: toothache Time Seen by Provider: 11/23/18 20:29 Source: patient Exam Limitations: no limitations - History of Present Illness Initial Comments: Karen Baxter 28 y/o female stated that she had on and off throbbing toothache lower gums right for the last 2 1/2 weeks called up her dentist but unable to get appointment till December next month. Timing/Duration: gradual, intermittent Severity: moderate EENT Location: dental Prearrival Treatment: no prearrival treatment Presenting Symptoms: toothache Improving Factors: nothing Worsening Factors: nothing Associated Symptoms: tooth pain Allergies/Adverse Reactions: Allergies Penicillins Allergy (Verified 10/18/18 10:34) Anaphylaxis Home Medications: Ambulatory Orders busPIRone HCL [Buspar] 5 mg PO BID 08/13/18 Acetaminophen W/ Codeine [Tylenol w/Codeine 300-30 mg] 1 tab PO Q8HRS PRN #7 tab 11/23/18 Clindamycin HCl [Cleocin] 300 mg PO TID #30 cap 11/23/18 Review of Systems - Review of Systems EENTM: States: other - dental pain All other Systems: Reviewed and Negative, No Change from Baseline Past Medical History (General) - Patient Medical History Hx Seizures: No Hx Stroke: No Hx Dementia: No Hx Asthma: No Hx of COPD: No Hx Cardiac Disorders: No Hx Congestive Heart Failure: No Hx Pacemaker: No Hx Hypertension: No Hx Thyroid Disease: No Hx Diabetes: No Hx Gastroesophageal Reflux: No Hx Renal Disease: No Hx Cancer: No Hx of HIV: No Hx Hepatitis C: No Hx MRSA: No Surgical History: other - BTL - Vaccination History Hx Tetanus, Diphtheria Vaccination: No Hx Influenza Vaccination: No Hx Pneumococcal Vaccination: No Immunizations Up to Date: No - Social History Hx Tobacco Use: Yes Hx Chewing Tobacco Use: No Hx Alcohol Use: No Hx Substance Use: No Hx Substance Use Treatment: No Hx Depression: No Hx Physical Abuse: No Hx Emotional Abuse: No Hx Suspected Abuse: No - Female History Hx Last Menstrual Period: 09/14/18 Patient : No Family Medical History - Family History Maternal Grandparents Family History: No Known Living Status: Still Living Hx Family Hypertension: Yes Hx Family Diabetes: Yes - type 2 Hx Family;Other: Pt has no other known historys Father Living Status: Still Living Hx Family;Other: leukemia] Mother Family History: No Known Physical Exam - Physical Exam General Appearance: Alert, Comfortable Eye Exam: bilateral normal Ear Exam: bilateral ear: auricle normal, canal normal, TM normal Nasal Exam: normal inspection Throat Exam: pharynx normal, dental tenderness - right lower molar gum swelling around tooth Neck: supple, normal inspection, trachea midline Cardiovascular/Respiratory: regular rate, rhythm, no M/R/G, normal peripheral pulses Abdominal Exam: non-tender, no organomegaly Neurologic: alert, oriented x 3 Skin Exam: normal color, warm/dry Progress - Progress Progress: 11/23/18 20:38 Last Vital Signs Temp 98.5 F 11/23/18 20:22 Pulse 116 H 11/23/18 20:22 Resp 18 11/23/18 20:22 BP 149/100 11/23/18 20:22 Pulse Ox 99 11/23/18 20:22 Departure - Departure Clinical Impression: Abscess, dental Time of Disposition: 20:40 Disposition: Discharge to Home or Self Care Condition: Fair Departure Forms: ED Discharge - Pt. Copy, Patient Portal Self Enrollment Instructions: DI for Dental Pain, Dental Pain (DC), Tooth Abscess (DC) Diet: other - SOFT DIET UNTIL BETTER Referrals: Buster Lou MD [Primary Care Provider] - 1-2 Weeks Prescriptions: Acetaminophen W/ Codeine [Tylenol w/Codeine 300-30 mg] 1 tab PO Q8HRS PRN #7 tab PRN Reason: Pain Clindamycin HCl [Cleocin] 300 mg PO TID #30 cap Home Medications: Ambulatory Orders busPIRone HCL [Buspar] 5 mg PO BID 08/13/18 Acetaminophen W/ Codeine [Tylenol w/Codeine 300-30 mg] 1 tab PO Q8HRS PRN #7 tab 11/23/18 Clindamycin HCl [Cleocin] 300 mg PO TID #30 cap 11/23/18 Additional Instructions: Keep appointment with dentist as scheduled
[2018-11-23] MEDS ORDERED: CLINDAMYCIN PHOSPHATE 150 MG/ML VIAL IM ONE (20:38)
[2018-11-23] MEDS ORDERED: CLINDAMYCIN HCL CAP 150 MG CAP PO ONE (20:38)
[2018-11-23] MEDS ORDERED: HYDROCOD/APAP 7.5/325 (ER DISP) #3 TAB PO ONE (20:39)
[2018-11-23] MEDS ORDERED: HYDROcodone 5MG/APAP 325MG 1 EA TAB PO ONE (20:39)
[2018-11-23 21:16] VITALS: BP 116/96; TEMP 97.9; O2SAT 96
== END 2018-11-23 21:16 | disposition home or self-care (01) ==
LOC: ER 20:10
DX: K04.7 Periapical abscess without sinus (principal); Z79.899 Other long term (current) drug therapy; Z88.0 Allergy status to penicillin; Z87.891 Personal history of nicotine dependence

== ENCOUNTER 2018-12-18 12:28 | Emergency (ER) | payer OTHER ==
[2018-12-18] MEDS ORDERED: NEO/POLY/HC OTIC SUSP 10 ML BTTL LEFT_EAR ONE (12:41)
[2018-12-18 12:43] VITALS: BP 157/80; TEMP 98.5; O2SAT 99
--- NOTE | 2018-12-18 12:43 | ED.PDOC ---
History of Present Illness - General Chief Complaint: ENT Problem Stated Complaint: left ear pain Time Seen by Provider: 12/18/18 12:40 Source: patient Exam Limitations: no limitations - History of Present Illness Initial Comments: Patient presents with left ear pain for one hour. It is throbbing and radiates to the left neck. She has had episodes of "ear problems" before. No fevers. No associated symptoms. No other complaints. Timing/Duration: 1 hour Severity: moderate Improving Factors: nothing Worsening Factors: nothing Associated Symptoms: denies symptoms Allergies/Adverse Reactions: Allergies Penicillins Allergy (Verified 10/18/18 10:34) Anaphylaxis Home Medications: Ambulatory Orders busPIRone HCL [Buspar] 5 mg PO BID 08/13/18 Methylphenidate HCl [Aptensio Xr] 10 mg PO BID 12/18/18 Steve/Poly/Hc Otic Susp [Cortisporin Otic Susp] 4 drop LEFT_EAR TID 7 Days #10 ml 12/18/18 Tramadol HCl 50 mg PO Q6H PRN 12/18/18 Review of Systems - Review of Systems Constitutional: States: no symptoms reported EENTM: States: see HPI Respiratory: States: no symptoms reported Cardiology: States: no symptoms reported Gastrointestinal/Abdominal: States: no symptoms reported Genitourinary: States: no symptoms reported Musculoskeletal: States: no symptoms reported Skin: States: no symptoms reported Neurological: States: no symptoms reported Endocrine: States: no symptoms reported Hematologic/Lymphatic: States: no symptoms reported Past Medical History (General) - Patient Medical History Hx Seizures: No Hx Stroke: No Hx Dementia: No Hx Asthma: No Hx of COPD: No Hx Cardiac Disorders: No Hx Congestive Heart Failure: No Hx Pacemaker: No Hx Hypertension: No Hx Thyroid Disease: No Hx Diabetes: No Hx Gastroesophageal Reflux: No Hx Renal Disease: No Hx Cancer: No Hx of HIV: No Hx Hepatitis C: No Hx MRSA: No - Vaccination History Hx Tetanus, Diphtheria Vaccination: No Hx Influenza Vaccination: No Hx Pneumococcal Vaccination: No - Social History Hx Tobacco Use: Yes Hx Chewing Tobacco Use: No Hx Alcohol Use: No Hx Substance Use: No Hx Substance Use Treatment: No Hx Depression: No Hx Physical Abuse: No Hx Emotional Abuse: No Hx Suspected Abuse: No - Female History Hx Last Menstrual Period: 09/14/18 Patient : No Expected Date of Delivery:: 01/22/15 Family Medical History - Family History Maternal Grandparents Family History: No Known Living Status: Still Living Hx Family Hypertension: Yes Hx Family Diabetes: Yes - type 2 Hx Family;Other: Pt has no other known historys Father Living Status: Still Living Hx Family;Other: leukemia] Mother Family History: No Known Physical Exam - Physical Exam General Appearance: Alert Eye Exam: bilateral normal Ears, Nose, Throat: other - Mild erythema in left external auditory canal Neck: non-tender, full range of motion, supple Respiratory: lungs clear, normal breath sounds Cardiovascular/Chest: normal peripheral pulses, regular rate, rhythm Gastrointestinal/Abdominal: normal bowel sounds, non tender, soft Progress - Progress Progress: 12/18/18 12:43 Cortisporin otic to left ear. Likely otitis externa. Care instructions given. E.R. warnings given. Questions were elicited and answered. Patient voiced understanding and agreement with the plan. Departure - Departure Clinical Impression: Otitis externa Disposition: Discharge to Home or Self Care Condition: Good Departure Forms: ED Discharge - Pt. Copy, Patient Portal Self Enrollment Instructions: DI for Otitis Externa Diet: resume usual diet Activity: increase activity as tolerated Referrals: Buster Lou MD [Primary Care Provider] - 1-2 Weeks Prescriptions: Steve/Poly/Hc Otic Susp [Cortisporin Otic Susp] 4 drop LEFT_EAR TID 7 Days #10 ml Home Medications: Ambulatory Orders busPIRone HCL [Buspar] 5 mg PO BID 08/13/18 Methylphenidate HCl [Aptensio Xr] 10 mg PO BID 12/18/18 Steve/Poly/Hc Otic Susp [Cortisporin Otic Susp] 4 drop LEFT_EAR TID 7 Days #10 ml 12/18/18 Tramadol HCl 50 mg PO Q6H PRN 12/18/18 Additional Instructions: Take medication as prescribed. Return for temperature greater than 100.3 or decreased hearing.
== END 2018-12-18 12:53 | disposition home or self-care (01) ==
LOC: ER 12:28
DX: H60.92 Unspecified otitis externa, left ear (principal); Z87.891 Personal history of nicotine dependence; Z88.0 Allergy status to penicillin

== ENCOUNTER 2018-12-22 18:39 | Emergency (ER) | payer OTHER ==
[2018-12-22 19:12] VITALS: TEMP 97.7; O2SAT 99
[2018-12-22] MEDS ORDERED: CIPROFLOXACIN/DEXAMETH OTIC 7.5ML BOTTLE LEFT_EAR ONE (19:17)
[2018-12-22] MEDS ORDERED: IBUPROFEN 200 MG TAB PO ONE (19:21)
--- NOTE | 2018-12-22 19:23 | ED.PDOC ---
History of Present Illness - General Chief Complaint: ENT Problem Stated Complaint: left ear pain Time Seen by Provider: 12/22/18 18:49 Source: patient Exam Limitations: no limitations - History of Present Illness Initial Comments: the patient is a 28-year-old female presenting to emergency room secondary to pain actually in her left neck about a inch inferior to the left ear and slightly anteriorly along the sternocleidomastoid muscle. She does have some mildly tenderlymphadenopathy there. No skin changes. No pain in the mastoid process. The ear canal on the left is actually clear at this point. The otitis externa appears to be clearing up and the tympanic membrane is clear. Right ear canal is clear as well. Oral pharynx is clear. Timing/Duration: 1 week Severity: mild Improving Factors: nothing Worsening Factors: movement Associated Symptoms: denies symptoms Allergies/Adverse Reactions: Allergies Penicillins Allergy (Verified 12/22/18 19:07) Anaphylaxis Home Medications: Ambulatory Orders busPIRone HCL [Buspar] 7.5 mg PO BID 08/13/18 Methylphenidate HCl [Aptensio Xr] 10 mg PO BID 12/18/18 Steve/Poly/Hc Otic Susp [Cortisporin Otic Susp] 4 drop LEFT_EAR TID 7 Days #10 ml 12/18/18 Tramadol HCl 50 mg PO Q6H PRN 12/18/18 Review of Systems - Review of Systems Constitutional: States: no symptoms reported EENTM: States: see HPI Respiratory: States: no symptoms reported Cardiology: States: no symptoms reported Gastrointestinal/Abdominal: States: no symptoms reported Genitourinary: States: no symptoms reported Musculoskeletal: States: see HPI Skin: States: no symptoms reported Neurological: States: no symptoms reported Endocrine: States: no symptoms reported Hematologic/Lymphatic: States: see HPI All other Systems: No Change from Baseline Past Medical History (General) - Patient Medical History Hx Seizures: No Hx Stroke: No Hx Dementia: No Hx Asthma: No Hx of COPD: No Hx Cardiac Disorders: No Hx Congestive Heart Failure: No Hx Pacemaker: No Hx Hypertension: No Hx Thyroid Disease: No Hx Diabetes: No Hx Gastroesophageal Reflux: No Hx Renal Disease: No Hx Cancer: No Hx of HIV: No Hx Hepatitis C: No Hx MRSA: No - Vaccination History Hx Tetanus, Diphtheria Vaccination: No Hx Influenza Vaccination: No Hx Pneumococcal Vaccination: No Immunizations Up to Date: No - Social History Hx Tobacco Use: Yes Hx Chewing Tobacco Use: No Hx Alcohol Use: No Hx Substance Use: No Hx Substance Use Treatment: No Hx Depression: Yes Hx Physical Abuse: No Hx Emotional Abuse: No Hx Suspected Abuse: No - Female History Hx Last Menstrual Period: 09/14/18 Patient : No Expected Date of Delivery:: 01/22/15 Family Medical History - Family History Maternal Grandparents Family History: No Known Living Status: Still Living Hx Family Hypertension: Yes Hx Family Diabetes: Yes - type 2 Hx Family;Other: Pt has no other known historys Father Living Status: Still Living Hx Family;Other: leukemia] Mother Family History: No Known Physical Exam - Physical Exam General Appearance: Alert, Comfortable, No apparent distress Eye Exam: bilateral normal Ears, Nose, Throat: hearing grossly normal, normal ENT inspection, normal pharynx Neck: other - see history of present illness. Respiratory: normal breath sounds, no respiratory distress Cardiovascular/Chest: normal peripheral pulses, no edema Peripheral Pulses: radial,right: 2+, radial,left: 2+ Rectal Exam: deferred Extremity: normal range of motion, no pedal edema, normal capillary refill Neurologic: psychology technician II-XII nml as tested, alert, normal mood/affect, oriented x 3 Skin Exam: normal color Comments: Vital Signs - 24 hr 12/22/18 19:08 Temperature 97.7 F Pulse Rate [ 83 monitor] Respiratory 18 Rate Blood Pressure 134/95 [LA] O2 Sat by Pulse 99 Oximetry Progress - Progress Progress: 12/22/18 19:24 the patient's 28-year-old female presenting to emergency room secondary to what appears to be pain from mild anterior cervical lymphadenopathy likely reactive to the recent otitis externa on that side. The patient can use Motrin every 8 hours as needed. Topical heat and stretching may also help. She will likely have some soreness there for the next 4 or 5 days. She does need to continue the Cortisporin otic drops for the otitis externa. She at least has 2 more days to use these. ER warnings were given. Departure - Departure Clinical Impression: Reactive cervical lymphadenopathy Disposition: Discharge to Home or Self Care Condition: Fair Departure Forms: ED Discharge - Pt. Copy, Patient Portal Self Enrollment Instructions: Lymphadenitis (DC) Diet: regular diet Activity: increase activity as tolerated Referrals: Buster Lou MD [Primary Care Provider] - 1-2 Weeks Home Medications: Ambulatory Orders busPIRone HCL [Buspar] 7.5 mg PO BID 08/13/18 Methylphenidate HCl [Aptensio Xr] 10 mg PO BID 12/18/18 Steve/Poly/Hc Otic Susp [Cortisporin Otic Susp] 4 drop LEFT_EAR TID 7 Days #10 ml 12/18/18 Tramadol HCl 50 mg PO Q6H PRN 12/18/18 Additional Instructions: the patient's 28-year-old female presenting to emergency room secondary to what appears to be pain from mild anterior cervical lymphadenopathy likely reactive to the recent otitis externa on that side. The patient can use Motrin every 8 hours as needed. Topical heat and stretching may also help. She will likely have some soreness there for the next 4 or 5 days. She does need to continue the Cortisporin otic drops for the otitis externa. She at least has 2 more days to use these. ER warnings were given.
[2018-12-22] MEDS ORDERED: CIPROFLOXACIN/DEXAMETH OTIC 7.5ML BOTTLE ONE (19:31)
[2018-12-22 19:43] VITALS: BP 128/88
== END 2018-12-22 19:44 | disposition home or self-care (01) ==
LOC: ER 18:39
DX: R59.0 Localized enlarged lymph nodes (principal); H60.92 Unspecified otitis externa, left ear; F32.9 Major depressive disorder, single episode, unspecified; Z87.891 Personal history of nicotine dependence; Z88.0 Allergy status to penicillin; Z79.899 Other long term (current) drug therapy

== ENCOUNTER 2019-02-18 17:33 | Emergency (ER) | payer OTHER ==
--- NOTE | 2019-02-18 19:11 | ED.PDOC ---
History of Present Illness - General Time Seen by Provider: 02/18/19 19:08 Source: patient - History of Present Illness Initial Comments: 28yo F presents with left ear pain. Symptoms have been worsening over the past 1-2 days. The patient reports recurrent hx of ear infection. She denies fever. No other reported issues. Allergies/Adverse Reactions: Allergies Penicillins Allergy (Verified 12/22/18 19:07) Anaphylaxis Home Medications: Ambulatory Orders busPIRone HCL [Buspar] 7.5 mg PO BID 08/13/18 Methylphenidate HCl [Aptensio Xr] 10 mg PO BID 12/18/18 Steve/Poly/Hc Otic Susp [Cortisporin Otic Susp] 4 drop LEFT_EAR TID 7 Days #10 ml 12/18/18 Tramadol HCl 50 mg PO Q6H PRN 12/18/18 Azithromycin [Zithromax Z-Jerrell] 250 mg PO ONCE #1 tab 02/18/19 Review of Systems - Review of Systems Constitutional: Denies: chills, fever EENTM: States: ear pain, nose congestion. Denies: eye pain, blurred vision, double vision, ear discharge Respiratory: Denies: cough, short of breath Cardiology: Denies: chest pain, palpitations Gastrointestinal/Abdominal: Denies: abdominal pain, nausea, vomiting Musculoskeletal: Denies: back pain, muscle pain Skin: Denies: change in color, rash Neurological: Denies: headache, numbness, weakness Past Medical History (General) - Patient Medical History Hx Seizures: No Hx Stroke: No Hx Dementia: No Hx Asthma: No Hx of COPD: No Hx Cardiac Disorders: No Hx Congestive Heart Failure: No Hx Pacemaker: No Hx Hypertension: No Hx Thyroid Disease: No Hx Diabetes: No Hx Gastroesophageal Reflux: No Hx Renal Disease: No Hx Cancer: No Hx of HIV: No Hx Hepatitis C: No Hx MRSA: No - Vaccination History Hx Tetanus, Diphtheria Vaccination: No Hx Influenza Vaccination: No Hx Pneumococcal Vaccination: No - Social History Hx Tobacco Use: Yes Hx Chewing Tobacco Use: No Hx Alcohol Use: No Hx Substance Use: No Hx Substance Use Treatment: No Hx Depression: Yes Hx Physical Abuse: No Hx Emotional Abuse: No Hx Suspected Abuse: No - Female History Hx Last Menstrual Period: 09/14/18 Patient : No Expected Date of Delivery:: 09/14/15 Family Medical History - Family History Maternal Grandparents Family History: No Known Living Status: Still Living Hx Family Hypertension: Yes Hx Family Diabetes: Yes - type 2 Hx Family;Other: Pt has no other known historys Father Living Status: Still Living Hx Family;Other: leukemia] Mother Family History: No Known Physical Exam - Physical Exam General Appearance: Alert, No apparent distress Eye Exam: bilateral normal Ears, Nose, Throat: normal pharynx, abnormal TM (L) - Erythematous Neck: non-tender, full range of motion, supple Respiratory: lungs clear, respiratory distress Cardiovascular/Chest: regular rate, rhythm, no edema Gastrointestinal/Abdominal: non tender, soft Neurologic: no motor/sensory deficits, alert, oriented x 3 Skin Exam: normal color, warm/dry Progress - Progress Progress: 02/18/19 19:21 The patient has L TM erythema with pain. Symptoms likely represent otitis media. Given recurrent nature, encouraged the patient to follow up with PCP and possibly an ENT for ongoing assessment. The patient is comfortable with the plan for discharge with close outpatient follow up. Return warning discussed. Departure - Departure Clinical Impression: Otitis media Qualifiers: Otitis media type: unspecified Chronicity: acute Qualified Code(s): H66.90 - Otitis media, unspecified, unspecified ear Time of Disposition: 19:13 Disposition: Discharge to Home or Self Care Condition: Good Instructions: Ear Infections (Otitis Media) (DC) Referrals: Buster Lou MD [Primary Care Provider] - 1-2 Weeks Prescriptions: Azithromycin [Zithromax Z-Jerrell] 250 mg PO ONCE #1 tab Home Medications: Ambulatory Orders busPIRone HCL [Buspar] 7.5 mg PO BID 08/13/18 Methylphenidate HCl [Aptensio Xr] 10 mg PO BID 12/18/18 Steve/Poly/Hc Otic Susp [Cortisporin Otic Susp] 4 drop LEFT_EAR TID 7 Days #10 ml 12/18/18 Tramadol HCl 50 mg PO Q6H PRN 12/18/18 Azithromycin [Zithromax Z-Jerrell] 250 mg PO ONCE #1 tab 02/18/19
[2019-02-18 19:21] VITALS: TEMP 97.6; O2SAT 97
[2019-02-18 19:36] VITALS: BP 121/65
== END 2019-02-18 19:30 | disposition home or self-care (01) ==
LOC: ER 17:33
DX: H66.92 Otitis media, unspecified, left ear (principal); F32.9 Major depressive disorder, single episode, unspecified; Z87.891 Personal history of nicotine dependence; Z79.899 Other long term (current) drug therapy; Z88.0 Allergy status to penicillin

== ENCOUNTER 2019-03-12 08:55 | Emergency (ER) | payer MEDICAID, OTHER ==
[2019-03-12 09:07] VITALS: O2SAT 99
--- NOTE | 2019-03-12 09:26 | ED.PDOC ---
History of Present Illness - General Chief Complaint: Dental/Mouth Stated Complaint: dental pain Time Seen by Provider: 03/12/19 09:20 Source: patient - History of Present Illness Initial Comments: 28 yo female who presents with cc of tooth pain. Ongoing for several days now but worsened since 2 am today. Reports pain to left upper 2nd molar, constant with waxing and waning severity, radiates to left jaw and under left eye at times, sharp & throbbing, currently moderate severity, worse with pressure and hot/cold temps, tried Orajel and ibuprofen/Tylenol with little relief. Denies any redness/swelling/drainage/fevers. She states she has a dental apptmt in 2 weeks to have it removed. +Smoker - 1 ppd. Allergies/Adverse Reactions: Allergies Penicillins Allergy (Verified 12/22/18 19:07) Anaphylaxis Home Medications: Ambulatory Orders busPIRone HCL [Buspar] 7.5 mg PO BID 08/13/18 Methylphenidate HCl [Aptensio Xr] 10 mg PO BID 12/18/18 Amoxicillin & Pot Clavulanate [Augmentin Tab] 875 mg PO BID 7 Days #14 tab 03/12/19 Citalopram Hydrobromide [Citalopram] 20 mg PO DAILY 03/12/19 Montelukast [Singulair] 10 mg PO DAILY 03/12/19 Tramadol HCl 50 mg PO Q6H PRN 10 Days #10 tab 03/12/19 Review of Systems - Review of Systems Review of Systems: 03/12/19 09:31 as per HPI All other Systems: Reviewed and Negative Past Medical History (General) - Patient Medical History Hx Seizures: No Hx Stroke: No Hx Dementia: No Hx Asthma: No Hx of COPD: No Hx Cardiac Disorders: No Hx Congestive Heart Failure: No Hx Pacemaker: No Hx Hypertension: No Hx Thyroid Disease: No Hx Diabetes: No Hx Gastroesophageal Reflux: No Hx Renal Disease: No Hx Cancer: No Hx of HIV: No Hx Hepatitis C: No Hx MRSA: No - Vaccination History Hx Tetanus, Diphtheria Vaccination: No Hx Influenza Vaccination: No Hx Pneumococcal Vaccination: No - Social History Hx Tobacco Use: Yes Hx Chewing Tobacco Use: No Hx Alcohol Use: No Hx Substance Use: No Hx Substance Use Treatment: No Hx Depression: Yes Hx Physical Abuse: No Hx Emotional Abuse: No Hx Suspected Abuse: No - Female History Patient is a Female of Child Bearing Age (10 -59 yrs old): Yes Hx Last Menstrual Period: 09/14/18 Patient : No Expected Date of Delivery:: 01/22/15 Family Medical History - Family History Maternal Grandparents Family History: No Known Living Status: Still Living Hx Family Hypertension: Yes Hx Family Diabetes: Yes - type 2 Hx Family;Other: Pt has no other known historys Father Living Status: Still Living Hx Family;Other: leukemia] Mother Family History: No Known Physical Exam - Physical Exam General Appearance: Alert, Comfortable, No apparent distress Eye Exam: bilateral normal Nasal Exam: normal inspection Throat Exam: pharynx normal, dental tenderness - left 2nd maxillary molar appears moderately decayed w/o swelling/redness/drainage, moderately ttp along gumline, numerous other missing teeth and decaying teeth as well throughout Neck: non-tender, full range of motion, supple, normal inspection Cardiovascular/Respiratory: regular rate, rhythm, no M/R/G, normal peripheral pulses, normal breath sounds, no respiratory distress Abdominal Exam: non-tender Neurologic: no motor/sensory deficits, alert, normal mood/affect, oriented x 3 Skin Exam: normal color, warm/dry Progress - Progress Progress: 03/12/19 09:33 Dental pain -appears due to dental caries with likely exposed pulp/nerve endings. Consider also developing abscess/infection vs other. -discussed appropriate dental care, quit smoking, and need for dental f/u for definitive care -will give Rx's of Augmentin x7 days and Tramadol PRN for breakthrough pain, continue OTC analgesics for primary pain control Edgar Rmaos MD Billing #[id number] Departure - Departure Clinical Impression: Dental caries extending into pulp, Toothache Time of Disposition: 09:22 Disposition: Discharge to Home or Self Care Condition: Good Departure Forms: ED Discharge - Pt. Copy, Patient Portal Self Enrollment Instructions: DI for Dental Pain Referrals: Buster Lou MD [Primary Care Provider] - 1-2 Weeks Prescriptions: Amoxicillin & Pot Clavulanate [Augmentin Tab] 875 mg PO BID 7 Days #14 tab Tramadol HCl 50 mg PO Q6H PRN 10 Days #10 tab PRN Reason: Pain Home Medications: Ambulatory Orders busPIRone HCL [Buspar] 7.5 mg PO BID 08/13/18 Methylphenidate HCl [Aptensio Xr] 10 mg PO BID 12/18/18 Amoxicillin & Pot Clavulanate [Augmentin Tab] 875 mg PO BID 7 Days #14 tab 03/12/19 Citalopram Hydrobromide [Citalopram] 20 mg PO DAILY 03/12/19 Montelukast [Singulair] 10 mg PO DAILY 03/12/19 Tramadol HCl 50 mg PO Q6H PRN 10 Days #10 tab 03/12/19 Additional Instructions: Follow up with your dentist for definitive care with dental extraction of affected tooth in 1-2 weeks. Continue OTC meds such as Orajel and tylenol and ibuprofen as needed. Take the tramadol for breakthrough pain as directed. Do not drive or operate heavy machinery when taking this medication.
[2019-03-12 09:34] VITALS: BP 124/95; TEMP 98.3
== END 2019-03-12 09:35 | disposition home or self-care (01) ==
LOC: ER 08:55
DX: K02.9 Dental caries, unspecified (principal); K00.0 Anodontia; F32.9 Major depressive disorder, single episode, unspecified; F17.210 Nicotine dependence, cigarettes, uncomplicated; Z88.0 Allergy status to penicillin; Z79.899 Other long term (current) drug therapy

== ENCOUNTER 2019-03-30 08:32 | Emergency (ER) | payer MEDICAID, OTHER ==
[2019-03-30 08:40] VITALS: BP 136/90; TEMP 97.6; O2SAT 99
--- NOTE | 2019-03-30 08:53 | ED.PDOC ---
History of Present Illness - General Chief Complaint: Respiratory Problem Stated Complaint: cough, runny nose Time Seen by Provider: 03/30/19 08:42 Source: patient, RN notes reviewed, Vital Signs reviewed Exam Limitations: no limitations - History of Present Illness Initial Comments: patient is a 28-year-old white female who presents with complaints of 4-5 days of runny nose, cough and sore throat. Patient states that the cough is productive for clear sputum. She denies any fever, shortness of breath, headaches, nausea, vomiting, diarrhea, chest pain, blurry vision. cough is worse with smoking, exertion taking a deep breath. Timing/Duration: other - 4-5 days Severity: moderate Improving Factors: rest Worsening Factors: movement, other - smoking Associated Symptoms: cough, shortness of breath Allergies/Adverse Reactions: Allergies Penicillins Allergy (Verified 12/22/18 19:07) Anaphylaxis Home Medications: Ambulatory Orders busPIRone HCL [Buspar] 7.5 mg PO BID 08/13/18 Citalopram Hydrobromide [Citalopram] 20 mg PO DAILY 03/12/19 Lidocaine HCl (Mouth-Throat) [Lidocaine HCl Viscous] 10 ml [facility] #120 ml 03/30/19 Methylphenidate HCl [Methylphenidate HCl ER] 10 mg PO DAILY 03/30/19 Review of Systems - Review of Systems Constitutional: States: no symptoms reported, see HPI EENTM: States: see HPI, throat pain Respiratory: States: see HPI, cough, short of breath. Denies: wheezing Cardiology: States: no symptoms reported Gastrointestinal/Abdominal: States: no symptoms reported Genitourinary: States: no symptoms reported Musculoskeletal: States: no symptoms reported Skin: States: no symptoms reported Neurological: States: no symptoms reported Endocrine: States: no symptoms reported Hematologic/Lymphatic: States: no symptoms reported All other Systems: Reviewed and Negative Past Medical History (General) - Patient Medical History Hx Seizures: No Hx Stroke: No Hx Dementia: No Hx Asthma: No Hx of COPD: No Hx Cardiac Disorders: No Hx Congestive Heart Failure: No Hx Pacemaker: No Hx Hypertension: No Hx Thyroid Disease: No Hx Diabetes: No Hx Gastroesophageal Reflux: No Hx Renal Disease: No Hx Cancer: No Hx of HIV: No Hx Hepatitis C: No Hx MRSA: No Surgical History: other - Vaccination History Hx Tetanus, Diphtheria Vaccination: No Hx Influenza Vaccination: No Hx Pneumococcal Vaccination: No - Social History Hx Tobacco Use: Yes Hx Chewing Tobacco Use: No Hx Alcohol Use: No Hx Substance Use: No Hx Substance Use Treatment: No Hx Depression: Yes Hx Physical Abuse: No Hx Emotional Abuse: No Hx Suspected Abuse: No - Female History Patient is a Female of Child Bearing Age (10 -59 yrs old): Yes Hx Last Menstrual Period: 09/14/18 Patient : No Expected Date of Delivery:: 01/22/15 Family Medical History - Family History Maternal Grandparents Family History: No Known Living Status: Still Living Hx Family Hypertension: Yes Hx Family Diabetes: Yes - type 2 Hx Family;Other: Pt has no other known historys Father Living Status: Still Living Hx Family;Other: leukemia] Mother Family History: No Known Physical Exam - Physical Exam General Appearance: Alert, Well Developed, Well Groomed, Well Hydrated, Well Nourished Eye Exam: bilateral normal Ears, Nose, Throat: hearing grossly normal, normal ENT inspection, sinus pain/drainage, nasal congestion, pharyngeal erythema, tonsillar swelling - 2+ Neck: full range of motion, supple, lymphadenopathy (R), lymphadenopathy (L), tender lateral Respiratory: chest non-tender, lungs clear, normal breath sounds, no respiratory distress, no accessory muscle use Cardiovascular/Chest: normal peripheral pulses, regular rate, rhythm, no edema, no gallop, no JVD, no murmur Peripheral Pulses: radial,right: 2+, radial,left: 2+ Gastrointestinal/Abdominal: normal bowel sounds, non tender, soft, no organomegaly Back Exam: normal inspection, no CVA tenderness, no vertebral tenderness Extremity: normal range of motion, non-tender, normal inspection, no pedal edema 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 03/30/19 09:05 Strep is negative. Without fever highly unlikely this is the flu or pneumonia. Also less likely to be pneumonia since the cough is only productive for clear sputum. I suspect this is viral upper respiratory tract infection with resultant viral pharyngitis. Plan: Discharge home with symptomatic treatment including viscous lidocaine. Plan of care with the patient she voices understanding and agreement. Brown Bradford M.D. #[id number] - Results/Orders Results/Orders: 03/30/19 08:45 STREP A SCREEN CULTURE Stat Laboratory Results - last 24 hr 03/30/19 08:45 Group A Strep Rapid Negative Departure - Departure Clinical Impression: Viral upper respiratory tract infection with cough, Pharyngitis with viral syndrome Upper respiratory infection Qualifiers: URI type: acute nasopharyngitis (common cold) Qualified Code(s): J00 - Acute nasopharyngitis [common cold] Disposition: Discharge to Home or Self Care Condition: Fair Departure Forms: ED Discharge - Pt. Copy, Patient Portal Self Enrollment Instructions: Viral Upper Respiratory Infection, Adult (DC), Viral Pharyngitis (DC) Referrals: Buster Lou MD [Primary Care Provider] - 1-2 Weeks Prescriptions: Lidocaine HCl (Mouth-Throat) [Lidocaine HCl Viscous] 10 ml [facility] #120 ml Home Medications: Ambulatory Orders busPIRone HCL [Buspar] 7.5 mg PO BID 08/13/18 Citalopram Hydrobromide [Citalopram] 20 mg PO DAILY 03/12/19 Lidocaine HCl (Mouth-Throat) [Lidocaine HCl Viscous] 10 ml [facility] #120 ml 03/30/19 Methylphenidate HCl [Methylphenidate HCl ER] 10 mg PO DAILY 03/30/19
[2019-03-30] MEDS: KETOROLAC TROMETHAMINE INJ 30 MG/ML VIAL IM ONE (09:04)
== END 2019-03-30 09:24 | disposition home or self-care (01) ==
LOC: ER 08:32
DX: J06.9 Acute upper respiratory infection, unspecified (principal); J00 Acute nasopharyngitis [common cold]; F32.9 Major depressive disorder, single episode, unspecified; Z87.891 Personal history of nicotine dependence; Z88.0 Allergy status to penicillin
CPT/HCPCS: 87070; 87880; J1885

== ENCOUNTER 2019-04-17 09:32 | Emergency (ER) | payer OTHER ==
[2019-04-17] MEDS ORDERED: IBUPROFEN 200 MG TAB PO ONE (09:43)
[2019-04-17] MEDS ORDERED: IPRATROPIUM/ALBUTEROL 3 ML VIAL NEB ONE (09:56)
[2019-04-17 10:17] VITALS: TEMP 98.5
[2019-04-17] MEDS ORDERED: predniSONE 20 MG TAB PO ONE (10:33)
--- NOTE | 2019-04-17 10:34 | ED.PDOC ---
History of Present Illness - General Chief Complaint: ENT Problem Stated Complaint: sore throat, eyes matted, cough Time Seen by Provider: 04/17/19 09:37 Source: patient Exam Limitations: no limitations - History of Present Illness Initial Comments: the patient is a 28-year-old female presenting to the emergency room secondary to cough congestion and sore throat. The patient had had essentially all of these symptoms for about a week and then things got a little bit worse over the last 2 days as far as severity. No real shortness of breath. The patient does smoke extensively. Lungs are actually clear at this point. Posterior oropharynx shows mild erythema. Nares are extremely red with clear rhinorrhea. Tympanic membranes are clear but they do show increased pressure. No point tenderness over the face. No definite fever. She does have a frequent clearing cough and some mild hoarseness.the patient does have a mild history of reactive airway disease. Timing/Duration: 1 week Severity: moderate Improving Factors: nothing Worsening Factors: nothing Associated Symptoms: cough, malaise Allergies/Adverse Reactions: Allergies Penicillins Allergy (Verified 12/22/18 19:07) Anaphylaxis Home Medications: Ambulatory Orders busPIRone HCL [Buspar] 7.5 mg PO BID 08/13/18 Citalopram Hydrobromide [Citalopram] 20 mg PO DAILY 03/12/19 Montelukast [Singulair] 10 mg PO DAILY 04/17/19 Review of Systems - Review of Systems Constitutional: States: malaise EENTM: States: nose congestion, throat pain Respiratory: States: cough Cardiology: States: no symptoms reported Gastrointestinal/Abdominal: States: no symptoms reported Genitourinary: States: no symptoms reported Musculoskeletal: States: no symptoms reported Skin: States: no symptoms reported Neurological: States: no symptoms reported Endocrine: States: no symptoms reported All other Systems: No Change from Baseline Past Medical History (General) - Patient Medical History Hx Seizures: No Hx Stroke: No Hx Dementia: No Hx Asthma: No Hx of COPD: No Hx Cardiac Disorders: No Hx Congestive Heart Failure: No Hx Pacemaker: No Hx Hypertension: No Hx Thyroid Disease: No Hx Diabetes: No Hx Gastroesophageal Reflux: No Hx Renal Disease: No Hx Cancer: No Hx of HIV: No Hx Hepatitis C: No Hx MRSA: No Surgical History: other - Vaccination History Hx Tetanus, Diphtheria Vaccination: No Hx Influenza Vaccination: No Hx Pneumococcal Vaccination: No - Social History Hx Tobacco Use: Yes Hx Chewing Tobacco Use: No Hx Alcohol Use: No Hx Substance Use: No Hx Substance Use Treatment: No Hx Depression: Yes Hx Physical Abuse: No Hx Emotional Abuse: No Hx Suspected Abuse: No - Female History Hx Last Menstrual Period: 09/14/18 Patient : No Expected Date of Delivery:: 01/22/15 Family Medical History - Family History Maternal Grandparents Family History: No Known Living Status: Still Living Hx Family Hypertension: Yes Hx Family Diabetes: Yes - type 2 Hx Family;Other: Pt has no other known historys Father Living Status: Still Living Hx Family;Other: leukemia] Mother Family History: No Known Physical Exam - Physical Exam General Appearance: Alert, Comfortable, No apparent distress Eye Exam: bilateral normal Ears, Nose, Throat: hearing grossly normal, nasal congestion, pharyngeal erythema Neck: full range of motion, supple Respiratory: lungs clear, normal breath sounds, no respiratory distress, no accessory muscle use Cardiovascular/Chest: normal peripheral pulses, regular rate, rhythm, no edema Peripheral Pulses: radial,right: 2+, radial,left: 2+, dorsalis pedis,right: 2+, dorsalis pedis,left: 2+ Gastrointestinal/Abdominal: non tender, soft Rectal Exam: deferred Back Exam: no CVA tenderness, no vertebral tenderness Extremity: non-tender, normal inspection, no pedal edema, normal capillary refill 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 The patient is given one dose of oral prednisone here for her mild reactive airway disease as well as for the laryngitis symptoms. She can pickling grader liquid Robitussin [id number] to help as a mild cough suppressant. She can use upog-ybm-zkppfgh Motrin or Aleve as an anti-inflammatory to help reduce mucus production and inflammation and thus help reduce symptoms. She does need to keep herself well-hydrated. She can also pickling grader fhky-quj-fquoalp Rhinocort or Flonase and use 1 spray per nostril twice daily for the next for 5 days to help reduce symptoms. Most importantly she needs to stop smoking. She can continue to use her home asthma medications. ER warnings were given. Follow-up with primary care doctor next week. [email or web address] [id number] - Results/Orders Results/Orders: rapid flu and rapid strep were negative. Departure - Departure Clinical Impression: Viral upper respiratory infection Disposition: Discharge to Home or Self Care Condition: Fair Departure Forms: ED Discharge - Pt. Copy, Patient Portal Self Enrollment Instructions: Laryngitis (DC), Cough, Runny Nose, and the Common Cold (DC) Diet: regular diet Activity: increase activity as tolerated Referrals: Buster Lou MD [Primary Care Provider] - 1-2 Weeks Home Medications: Ambulatory Orders busPIRone HCL [Buspar] 7.5 mg PO BID 08/13/18 Citalopram Hydrobromide [Citalopram] 20 mg PO DAILY 03/12/19 Montelukast [Singulair] 10 mg PO DAILY 04/17/19 Additional Instructions: the patient's a 28-year-old female presenting to the emergency room secondary to what appears to be a viral upper respiratory tract infection, which does include a mild laryngitis. The patient is given one dose of oral prednisone here for her mild reactive airway disease as well as for the laryngitis symptoms. She can pickling grader liquid Robitussin [id number]-[id number] to help as a mild cough suppressant. She can use blve-ceb-rrutlkr Motrin or Aleve as an anti-inflammatory to help reduce mucus production and inflammation and thus help reduce symptoms. She does need to keep herself well-hydrated. She can also pickling grader zodh-oan-tmjqtod Rhinocort or Flonase and use 1 spray per nostril twice daily for the next for 5 days to help reduce symptoms. Most importantly she needs to stop smoking. She can continue to use her home asthma medications. ER warnings were given. Follow-up with primary care doctor next week.
[2019-04-17 10:54] VITALS: BP 124/69; O2SAT 96
== END 2019-04-17 10:52 | disposition home or self-care (01) ==
LOC: ER 09:32
DX: J06.9 Acute upper respiratory infection, unspecified (principal); F32.9 Major depressive disorder, single episode, unspecified; Z87.891 Personal history of nicotine dependence; Z88.0 Allergy status to penicillin; Z79.899 Other long term (current) drug therapy
CPT/HCPCS: 87070; 87502; 87880; 94640; J7512; J7620

== ENCOUNTER 2019-05-07 09:52 | Emergency (ER) | payer OTHER ==
[2019-05-07 10:06] VITALS: BP 126/70; TEMP 98.3; O2SAT 98
--- NOTE | 2019-05-07 10:07 | ED.PDOC ---
History of Present Illness - General Chief Complaint: Respiratory Problem Stated Complaint: Cough, congestion, JEFF, sore throat x one month Time Seen by Provider: 05/07/19 10:04 Source: patient Exam Limitations: no limitations Additional Information: Report cough x 1 month. Reports trying Zyrtec at home without relief. Denies fever, SOB, chest pain, or other symptoms. Currently smoking. - History of Present Illness Timing/Duration: other - 1 month Cough Quality/Degree: mild Improving Factors: nothing Worsening Factors: nothing Allergies/Adverse Reactions: Allergies Penicillins Allergy (Verified 05/07/19 10:06) Anaphylaxis Home Medications: Ambulatory Orders busPIRone HCL [Buspar] 7.5 mg PO BID 08/13/18 Citalopram Hydrobromide [Citalopram] 20 mg PO DAILY 03/12/19 Montelukast [Singulair] 10 mg PO DAILY 04/17/19 Benzonatate Perles [Tessalon Perles] 100 mg PO Q8HR PRN #20 cap 05/07/19 Fluticasone Prop 0.05% Nasal [Flonase Nasal [place]] 1 spray BNAS DAILY 10 Days #1 spray 05/07/19 Methylphenidate HCl [Methylphenidate Hydrochlo] 10 mg PO DAILY 05/07/19 Review of Systems - Review of Systems Constitutional: States: no symptoms reported EENTM: States: no symptoms reported Respiratory: States: cough Cardiology: States: no symptoms reported Past Medical History (General) - Patient Medical History Hx Seizures: No Hx Stroke: No Hx Dementia: No Hx Asthma: No Hx of COPD: No Hx Cardiac Disorders: No Hx Congestive Heart Failure: No Hx Pacemaker: No Hx Hypertension: No Hx Thyroid Disease: No Hx Diabetes: No Hx Gastroesophageal Reflux: No Hx Renal Disease: No Hx Cancer: No Hx of HIV: No Hx Hepatitis C: No Hx MRSA: No - Vaccination History Hx Tetanus, Diphtheria Vaccination: No Hx Influenza Vaccination: No Hx Pneumococcal Vaccination: No - Social History Hx Tobacco Use: Yes Hx Chewing Tobacco Use: No Hx Alcohol Use: No Hx Substance Use: No Hx Substance Use Treatment: No Hx Depression: Yes Hx Physical Abuse: No Hx Emotional Abuse: No Hx Suspected Abuse: No - Female History Hx Last Menstrual Period: 09/14/18 Patient : No Expected Date of Delivery:: 01/22/15 Family Medical History - Family History Maternal Grandparents Family History: No Known Living Status: Still Living Hx Family Hypertension: Yes Hx Family Diabetes: Yes - type 2 Hx Family;Other: Pt has no other known historys Father Living Status: Still Living Hx Family;Other: leukemia] Mother Family History: No Known Physical Exam - Physical Exam General Appearance: Alert, Comfortable, No apparent distress ENT Exam: TMs normal, pharynx normal Neck: non-tender, full range of motion Respiratory: chest non-tender, lungs clear, normal breath sounds Cardiovascular/Chest: normal peripheral pulses, regular rate, rhythm, no edema Skin Exam: normal color, warm/dry Lymphatic: no adenopathy Progress - Progress Progress: 05/07/19 10:08 Well-appearing, no distress, no evidence of clinical pneumonia or respiratory compromise on initial evaluation. Symptoms most consistent with viral syndrome today. Plan for symptomatic control with goal of symptomatic improvement and relief. No signs of acutely dangerous intracranial or intrathoracic infections noted at this visit. ED warnings given and outpatient f/u with PCP. 05/07/19 10:15 Chito Snyder MD #[id number] Departure - Departure Clinical Impression: Cough Time of Disposition: 10:09 Disposition: Discharge to Home or Self Care Condition: Good Departure Forms: ED Discharge - Pt. Copy, Patient Portal Self Enrollment Diet: resume usual diet Referrals: Buster Lou MD [Primary Care Provider] - 1-2 Weeks Prescriptions: Benzonatate Perles [Tessalon Perles] 100 mg PO Q8HR PRN #20 cap PRN Reason: Cough Fluticasone Prop 0.05% Nasal [Flonase Nasal [place]] 1 spray BNAS DAILY 10 Days #1 spray Home Medications: Ambulatory Orders busPIRone HCL [Buspar] 7.5 mg PO BID 08/13/18 Citalopram Hydrobromide [Citalopram] 20 mg PO DAILY 03/12/19 Montelukast [Singulair] 10 mg PO DAILY 04/17/19 Benzonatate Perles [Tessalon Perles] 100 mg PO Q8HR PRN #20 cap 05/07/19 Fluticasone Prop 0.05% Nasal [Flonase Nasal [place]] 1 spray BNAS DAILY 10 Days #1 spray 05/07/19 Methylphenidate HCl [Methylphenidate Hydrochlo] 10 mg PO DAILY 05/07/19
== END 2019-05-07 10:15 | disposition home or self-care (01) ==
LOC: ER 09:52
DX: R05 Cough (principal); F17.200 Nicotine dependence, unspecified, uncomplicated; F32.9 Major depressive disorder, single episode, unspecified; Z79.899 Other long term (current) drug therapy; Z88.0 Allergy status to penicillin

== ENCOUNTER → 2019-05-30 | Outpatient (CLI) | payer OTHER | LOC: YCFC.O 05-23 10:58 | PROVIDERS: ATTEND Family Medicine | DX: F90.0 Attention-deficit hyperactivity disorder, predominantly inattentive type (principal) ==

== ENCOUNTER 2019-06-11 15:51 | Emergency (ER) | payer OTHER ==
--- NOTE | 2019-06-11 17:09 | ED.PDOC ---
History of Present Illness - General Chief Complaint: Back Pain or Injury Stated Complaint: Back discomfort Time Seen by Provider: 06/11/19 15:55 Source: patient - History of Present Illness Initial Comments: 28 yo female who presents with cc of low back pain. Onset this morning when she woke up, no reported prior trauma or injury, located to entire low back, constant, throbbing, 9/10 severity, radiates into buttocks and thighs, worse with bending, movement, slightly better lying down, took ibuprofen and Tylenol earlier this afternoon with little relief. Denies any weakness, numbness. Does report a little burning with urination but no hematuria. Denies fevers, chills, abd pain, n/v/d. Allergies/Adverse Reactions: Allergies Penicillins Allergy (Verified 05/07/19 10:06) Anaphylaxis Home Medications: Ambulatory Orders busPIRone HCL [Buspar] 7.5 mg PO BID 08/13/18 Citalopram Hydrobromide [Citalopram] 20 mg PO DAILY 03/12/19 Montelukast [Singulair] 10 mg PO DAILY 04/17/19 Fluticasone Prop 0.05% Nasal [Flonase Nasal [place]] 1 spray BNAS DAILY 10 Days #1 spray 05/07/19 Methylphenidate HCl [Methylphenidate Hydrochlo] 10 mg PO DAILY 05/07/19 Cephalexin Monohydrate [Keflex] 500 mg PO BID 5 Days #10 cap 06/11/19 Tramadol HCl 50 mg PO Q6H PRN 7 Days #10 tab 06/11/19 Review of Systems - Review of Systems Review of Systems: 06/11/19 17:08 as per HPI All other Systems: Reviewed and Negative Past Medical History (General) - Patient Medical History Hx Seizures: No Hx Stroke: No Hx Dementia: No Hx Asthma: No Hx of COPD: No Hx Cardiac Disorders: No Hx Congestive Heart Failure: No Hx Pacemaker: No Hx Hypertension: No Hx Thyroid Disease: No Hx Diabetes: No Hx Gastroesophageal Reflux: No Hx Renal Disease: No Hx Cancer: No Hx of HIV: No Hx Hepatitis C: No Hx MRSA: No Surgical History: other - Vaccination History Hx Tetanus, Diphtheria Vaccination: No Hx Influenza Vaccination: No Hx Pneumococcal Vaccination: No - Social History Hx Tobacco Use: Yes Hx Chewing Tobacco Use: No Hx Alcohol Use: No Hx Substance Use: No Hx Substance Use Treatment: No Hx Depression: No Feels Threatened In Home Enviroment: No Feels Threatened In a Relationship: No Hx Physical Abuse: No Hx Emotional Abuse: No Hx Suspected Abuse: No - Female History Patient is a Female of Child Bearing Age (10 -59 yrs old): Yes Hx Last Menstrual Period: 09/14/18 Patient : No Expected Date of Delivery:: 01/22/15 - Triage Comment ED Triage Comment: Chronic back pain with numbness noted to the right arm and hand. Family Medical History - Family History Maternal Grandparents Family History: No Known Living Status: Still Living Hx Family Hypertension: Yes Hx Family Diabetes: Yes - type 2 Hx Family;Other: Pt has no other known historys Father Living Status: Still Living Hx Family;Other: leukemia] Mother Family History: No Known Physical Exam - Physical Exam General Appearance: Alert, No apparent distress Eye Exam: bilateral normal Ears, Nose, Throat: hearing grossly normal, normal ENT inspection, normal pharynx Neck: non-tender, full range of motion, supple, normal inspection Respiratory: lungs clear, normal breath sounds, no respiratory distress Cardiovascular/Chest: normal peripheral pulses, regular rate, rhythm, no edema, no murmur Peripheral Pulses: radial,right: 2+, radial,left: 2+ Gastrointestinal/Abdominal: non tender, soft Back Exam: normal inspection, no CVA tenderness, no vertebral tenderness, other - back appears normal on inspection without any bruising/swelling/deformity. M oderate BL paralumbar muscle ttp. 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 Consider also osteoarthritis, spasm, UTI, , ectopic, other -check UA, hcg, XR L spine -Toradol 60 mg IM, Flexeril 10 mg PO for pain 06/11/19 17:57 -Pain moderately improved, pt remains stable -Urine hcg negative. UA reveals 10-20 WBC, +leuk esterase, 5-10 RBC - c/w UTI. -XR L spine shows no acute processes. Minimal arthritic changes per my read. -Discussed dx of low back strain and UTI with patient. Advised continued OTC analgesics. Will give Rx of Keflex 500 mg BID x5 days and Tramadol 50 mg PRN pain, first doses here. -dc home in good condition, return warnings discussed Edgar Ramos MD Billing #[id number] 06/11/19 16:40 Urine Culture Stat 06/11/19 16:57 Lumbar Spine 3 Views [RAD] Stat 06/11/19 17:57 Cephalexin Monohydrate [Keflex] 500 mg PO ONCE ONE Laboratory Results - last 24 hr 06/11/19 06/11/19 16:40 16:40 Urine Color Dk yellow H Urine Appearance Cloudy Urine pH 6.0 Ur Specific [place] 1.025 Urine Protein 100 H Urine Glucose (UA) Negative Urine Ketones >=160 Urine Blood Trace-intact H Urine Nitrite Negative Urine Bilirubin Moderate Urine Urobilinogen 0.2 Ur Leukocyte Esterase Large H Urine RBC 5-10 H Urine WBC 10-20 H Ur Epithelial Cells 10-20 Urine Bacteria 2+ H Urine HCG, Qual Negative Departure - Departure Clinical Impression: Urinary tract infection Qualifiers: Urinary tract infection type: acute cystitis Hematuria presence: with hematuria Qualified Code(s): N30.01 - Acute cystitis with hematuria Low back strain Qualifiers: Encounter type: initial encounter Qualified Code(s): S39.012A - Strain of muscle, fascia and tendon of lower back, initial encounter Time of Disposition: 18:01 Disposition: Discharge to Home or Self Care Condition: Good Departure Forms: ED Discharge - Pt. Copy, Patient Portal Self Enrollment Instructions: DI for Low Back Pain, Urinary Tract Infection, Adult (DC) Diet: resume usual diet Referrals: Buster Lou MD [Primary Care Provider] - 1-2 Weeks Prescriptions: Cephalexin Monohydrate [Keflex] 500 mg PO BID 5 Days #10 cap Tramadol HCl 50 mg PO Q6H PRN 7 Days #10 tab PRN Reason: Pain Home Medications: Ambulatory Orders busPIRone HCL [Buspar] 7.5 mg PO BID 08/13/18 Citalopram Hydrobromide [Citalopram] 20 mg PO DAILY 03/12/19 Montelukast [Singulair] 10 mg PO DAILY 04/17/19 Fluticasone Prop 0.05% Nasal [Flonase Nasal [place]] 1 spray BNAS DAILY 10 Days #1 spray 05/07/19 Methylphenidate HCl [Methylphenidate Hydrochlo] 10 mg PO DAILY 05/07/19 Cephalexin Monohydrate [Keflex] 500 mg PO BID 5 Days #10 cap 06/11/19 Tramadol HCl 50 mg PO Q6H PRN 7 Days #10 tab 06/11/19 Additional Instructions: Remain well hydrated and advance activity level as tolerated. Continue ibuprofen 600 mg every 6 hours as needed and Tylenol 650 mg every 6 hours as needed at home for pain. You may take Tramadol as directed for breakthrough pain. Do not drive or operate heavy machinery while taking. Return if symptoms worsen or other concerning symptoms develop. Follow up with your primary care doctor in 1-2 weeks.
[2019-06-11 17:11] VITALS: O2SAT 100
[2019-06-11] MEDS: CYCLOBENZAPRINE HCL 10 MG TAB PO ONE (17:14)
[2019-06-11] MEDS: KETOROLAC TROMETHAMINE INJ 60 MG/2 ML VIAL IM ONE (17:15)
[2019-06-11] MEDS: traMADol HCL 50 MG TAB PO ONE (18:11)
[2019-06-11] MEDS: CEPHALEXIN MONOHYDRATE 500 MG CAP PO ONE (18:11)
[2019-06-11 18:15] VITALS: BP 133/79; TEMP 97.6
--- NOTE | 2019-06-11 18:32 | RAD ---
EXAM: Lumbar Spine 3 Views CLINICAL INDICATION: 28-year-old female with acute low back pain. TECHNIQUE: Three views of the lumbar spine were obtained in AP, lateral, and spot projections. COMPARISON: 09/03/2017. FINDINGS: There are six lumbar type vertebral bodies with lumbarization of the S1 level. Alignment of the lumbar spine is within normal limits. There is no subluxation or fracture deformity. Morphology of the vertebral bodies and intervertebral disc spaces is within normal limits. The remainder of the visualized bones are within normal limits. IMPRESSION: No acute radiographic abnormality. If the patient's symptoms persist, follow-up evaluation with MRI may be considered. Electronically signed by: Tawnya Carias MD 06/11/2019 6:30 PM [facility]
== END 2019-06-11 18:14 | disposition home or self-care (01) ==
LOC: ER 15:51
DX: S39.012A Strain of muscle, fascia and tendon of lower back, initial encounter (principal); N30.01 Acute cystitis with hematuria; Z79.899 Other long term (current) drug therapy; Z88.0 Allergy status to penicillin; Z87.891 Personal history of nicotine dependence; X58.XXXA Exposure to other specified factors, initial encounter; Y92.9 Unspecified place or not applicable
CPT/HCPCS: 72100; 81001; 81025; 87086; J1885

== ENCOUNTER 2019-11-25 17:53 | Emergency (ER) | payer SELFPAY ==
--- NOTE | 2019-11-25 17:57 | ED.PDOC ---
History of Present Illness - General Time Seen by Provider: 11/25/19 17:55 Source: patient - History of Present Illness Initial Comments: 29-year-old female with past medical history of anxiety, asthma, UTIs who presents with chief complaint of low back pain. Onset yesterday with worsening today. Describes as constant dull pain to the middle lower back which radiates around both sides to the right and left lower quadrant regions, currently 6/10 severity, taking Advil and Tylenol at home with moderate relief. States she had similar symptoms 2 months ago and was diagnosed with UTI. She does report history of chronic back pain and bulging disks but states the current pain feels different. States LMP was 1 week ago. Does report some nausea and intermittent dry cough. Denies any fevers, chills, sore throat, chest pain, dyspnea, diarrhea, other systemic symptoms. Denies any known recent COVID-19 exposure. Allergies/Adverse Reactions: Allergies Penicillins Allergy (Verified 05/07/19 10:06) Anaphylaxis Home Medications: Ambulatory Orders busPIRone HCL [Buspar] 7.5 mg PO BID 08/13/18 Citalopram Hydrobromide [Citalopram] 20 mg PO DAILY 03/12/19 Montelukast [Singulair] 10 mg PO DAILY 04/17/19 Methylphenidate HCl [Methylphenidate Hydrochlo] 10 mg PO DAILY 05/07/19 RX: Fluticasone Prop 0.05% Nasal [Flonase Nasal [place]] 1 spray BNAS DAILY 10 Days #1 spray 05/07/19 Cephalexin Monohydrate [Keflex] 500 mg PO BID 5 Days #10 cap 06/11/19 RX: Tramadol HCl 50 mg PO Q6H PRN 7 Days #10 tab 06/11/19 Benzonatate Perles [Tessalon Perles] 100 mg PO Q6H PRN #20 cap 07/13/19 RX: Prednisone 60 mg PO DAILY 5 Days #15 tab 07/13/19 Cephalexin Monohydrate [Keflex] 500 mg PO BID 5 Days #10 cap 11/25/19 Review of Systems - Review of Systems Review of Systems: 11/25/19 18:14 As per HPI All other Systems: Reviewed and Negative Past Medical History (General) - Patient Medical History Hx Seizures: No Hx Stroke: No Hx Dementia: No Hx Asthma: No Hx of COPD: No Hx Cardiac Disorders: No Hx Congestive Heart Failure: No Hx Pacemaker: No Hx Hypertension: No Hx Thyroid Disease: No Hx Diabetes: No Hx Gastroesophageal Reflux: No Hx Renal Disease: No Hx Cancer: No Hx of HIV: No Hx Hepatitis C: No Hx MRSA: No - Vaccination History Hx Tetanus, Diphtheria Vaccination: No Hx Influenza Vaccination: No Hx Pneumococcal Vaccination: No - Social History Hx Tobacco Use: Yes Hx Chewing Tobacco Use: No Hx Alcohol Use: No Hx Substance Use: No Hx Substance Use Treatment: No Hx Depression: No Hx Physical Abuse: No Hx Emotional Abuse: No Hx Suspected Abuse: No - Female History Hx Last Menstrual Period: 09/14/18 Patient : No Expected Date of Delivery:: 01/22/15 Family Medical History - Family History Father Living Status: Still Living Hx Family;Other: leukemia] Maternal Grandparents Family History: No Known Living Status: Still Living Hx Family Hypertension: Yes Hx Family Diabetes: Yes - type 2 Hx Family;Other: Pt has no other known historys Mother Family History: No Known Physical Exam - Physical Exam General Appearance: Alert, Comfortable, No apparent distress Eye Exam: bilateral normal Ears, Nose, Throat: hearing grossly normal, normal ENT inspection, normal pharynx Neck: non-tender, full range of motion, supple, normal inspection Respiratory: chest non-tender, lungs clear, normal breath sounds, no respiratory distress, no accessory muscle use Cardiovascular/Chest: normal peripheral pulses, no edema, no gallop, no JVD, no murmur, tachycardia Peripheral Pulses: radial,right: 2+, radial,left: 2+ Gastrointestinal/Abdominal: non tender, soft, no organomegaly Back Exam: normal inspection, no CVA tenderness, other - Moderate bilateral lower back tenderness to palpation without any noted deformities Extremity: normal range of motion, non-tender, normal inspection, no pedal edema, no calf tenderness, normal capillary refill 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 CMP is unremarkable. UA seems consistent with UTI with 1+ bacteria, 3 WBC, small blood, trace leukocyte Esterase. -Patient remained stable, reports feeling much better following ED treatment. Her tachycardia is resolved and remains afebrile -Discussed diagnosis of UTI and will treat with Keflex 500 mg p.o. twice daily for 5 days since this treatment worked last time with the patient, first dose given here -Discharged home in good condition, return warnings discussed at length. Advise she will need to follow-up with her PCP in the next 1 to 2 weeks for repeat evaluation. She will also need repeat urinalysis outpatient testing done to ensure clearing of her hematuria after the treatment of the UTI. If her hematuria does not clear she may need outpatient urology referral. I discussed this with the patient and she verbalized understanding. Edgar Ramos MD Billing #[id number] 11/25/19 18:10 Sodium Chloride 0.9% (Flush) [Saline Flush Syringe] 10 ml IV PRN PRN 11/25/19 18:11 URINE DRUG SCREEN, 7 ASSAY Stat Laboratory Results - last 24 hr 11/25/19 11/25/19 11/25/19 17:57 18:22 18:22 WBC 11.0 H RBC 4.77 Hgb 14.5 Hct 42.0 MCV 88.2 MCH 30.4 MCHC 34.5 RDW 14.0 Plt Count 363 MPV 8.1 Absolute Neuts (auto) 7.80 H Absolute Lymphs (auto) 2.20 Absolute Monos (auto) 0.80 Absolute Eos (auto) 0.10 Absolute Basos (auto) 0.10 Neutrophils % 70.9 Lymphocytes % 19.9 L Monocytes % 7.7 Eosinophils % 0.7 L Basophils % 0.8 Sodium 137 Potassium 3.7 Chloride 104 Carbon Dioxide 23 Anion Gap 13.7 BUN 13 Creatinine 0.70 BUN/Creatinine Ratio 18.6 Random Glucose 107 H Serum Osmolality 274.4 L Calcium 9.7 Total Bilirubin 0.5 Direct Bilirubin 0.1 Indirect Bilirubin 0.4 AST 31 ALT 23 Alkaline Phosphatase 99 Serum Total Protein 8.0 Albumin 4.1 Urine Color Urine Appearance Urine pH Ur Specific Soldier Urine Protein Urine Glucose (UA) Urine Ketones Urine Blood Urine Nitrite Urine Bilirubin Urine Urobilinogen Ur Leukocyte Esterase Urine RBC Urine WBC Ur Epithelial Cells Urine Bacteria Urine Mucus Urine HCG, Qual Negative 11/25/19 19:20 WBC RBC Hgb Hct MCV MCH MCHC RDW Plt Count MPV Absolute Neuts (auto) Absolute Lymphs (auto) Absolute Monos (auto) Absolute Eos (auto) Absolute Basos (auto) Neutrophils % Lymphocytes % Monocytes % Eosinophils % Basophils % Sodium Potassium Chloride Carbon Dioxide Anion Gap BUN Creatinine BUN/Creatinine Ratio Random Glucose Serum Osmolality Calcium Total Bilirubin Direct Bilirubin Indirect Bilirubin AST ALT Alkaline Phosphatase Serum Total Protein Albumin Urine Color Yellow Urine Appearance Cloudy Urine pH 7.0 Ur Specific Soldier 1.025 Urine Protein 100 H Urine Glucose (UA) Negative Urine Ketones 15 H Urine Blood Small H Urine Nitrite Negative Urine Bilirubin Moderate Urine Urobilinogen 0.2 Ur Leukocyte Esterase Trace H Urine RBC 5-10 H Urine WBC 1-3 Ur Epithelial Cells 10-20 Urine Bacteria 1+ Urine Mucus Large Urine HCG, Qual Departure - Departure Clinical Impression: UTI (urinary tract infection) Time of Disposition: 19:42 Disposition: Discharge to Home or Self Care Condition: Good Departure Forms: ED Discharge - Pt. Copy, Patient Portal Self Enrollment Instructions: Urinary Tract Infection, Adult (DC) Diet: resume usual diet Activity: increase activity as tolerated Referrals: Buster Lou MD [Primary Care Provider] - 1-2 Weeks Prescriptions: Cephalexin Monohydrate [Keflex] 500 mg PO BID 5 Days #10 cap Home Medications: Ambulatory Orders busPIRone HCL [Buspar] 7.5 mg PO BID 08/13/18 Citalopram Hydrobromide [Citalopram] 20 mg PO DAILY 03/12/19 Montelukast [Singulair] 10 mg PO DAILY 04/17/19 Methylphenidate HCl [Methylphenidate Hydrochlo] 10 mg PO DAILY 05/07/19 RX: Fluticasone Prop 0.05% Nasal [Flonase Nasal [place]] 1 spray BNAS DAILY 10 Days #1 spray 05/07/19 Cephalexin Monohydrate [Keflex] 500 mg PO BID 5 Days #10 cap 06/11/19 RX: Tramadol HCl 50 mg PO Q6H PRN 7 Days #10 tab 06/11/19 Benzonatate Perles [Tessalon Perles] 100 mg PO Q6H PRN #20 cap 07/13/19 RX: Prednisone 60 mg PO DAILY 5 Days #15 tab 07/13/19 Cephalexin Monohydrate [Keflex] 500 mg PO BID 5 Days #10 cap 11/25/19 Additional Instructions: Take the antibiotics as directed and finish the full course even if well. You may continue to take [id number] medications such as ibuprofen 600 mg every 6 hours as needed and Tylenol 650 mg every 6 hours as needed for pain. Return to the ED if your symptoms worsen or other concerning symptoms develop such as worsening abdominal pain, intractable nausea and vomiting, vaginal discharge or heavy vaginal bleeding, blood in the vomit or stool, etc. Follow-up with your primary care physician is recommended in the next 1 to 2 weeks for repeat evaluation or sooner as needed.
[2019-11-25 18:23] VITALS: O2SAT 97
[2019-11-25] MEDS: SODIUM CHLORIDE 0.9% 1000ML 1,000 ML IVS ONE (18:49)
[2019-11-25] MEDS: KETOROLAC TROMETHAMINE INJ 30 MG/ML VIAL IV ONE (18:50)
[2019-11-25] MEDS: SODIUM CHLORIDE 0.9% (FLUSH) 10 ML SYG IV PRN (18:50)
[2019-11-25] MEDS: ONDANSETRON INJ 4 MG/2 ML VIAL IV ONE (18:50)
[2019-11-25] MEDS ORDERED: CEPHALEXIN MONOHYDRATE 250 MG CAP PO ONE (19:42)
[2019-11-25 19:51] VITALS: BP 126/88; TEMP 97.9
== END 2019-11-25 19:51 | disposition home or self-care (01) ==
LOC: ER 17:53
DX: N39.0 Urinary tract infection, site not specified (principal); R05 Cough; D72.829 Elevated white blood cell count, unspecified; R11.0 Nausea; M54.5 Low back pain; Z87.891 Personal history of nicotine dependence
CPT/HCPCS: 36415; 80048; 80076; 80307; 81001; 81025; 85025; A4216; J1885; J2405; J7030

== ENCOUNTER 2019-12-12 21:06 | Emergency (ER) | payer SELFPAY ==
--- NOTE | 2019-12-12 21:12 | ED.PDOC ---
History of Present Illness - General Time Seen by Provider: 12/12/19 21:10 Source: patient - History of Present Illness Initial Comments: 29 yo female with PMH of asthma, anxiety, UTI's who presens with cc of Left ear pain. Onset yesterday with worsening today. Began after she went swimming. Reports constant throbbing 4/10 severity pain to the inside of the ear which radiates to the outside of the ear into the left upper jaw, worsens with manipulation of the outer ear, tried taking [id number] medications with moderate relief. Denies any drainage or bleeding from the ear or decreased hearing. Denies any fevers, chills, sore throat, cough, shortness of breath, chest pain, abdominal pain. Reports hx of frequent ear infections and swimmer's ear. Allergies/Adverse Reactions: Allergies Penicillins Allergy (Verified 12/12/19 21:23) Anaphylaxis Home Medications: Ambulatory Orders busPIRone HCL [Buspar] 7.5 mg PO BID 08/13/18 Citalopram Hydrobromide [Citalopram] 20 mg PO DAILY 03/12/19 Montelukast [Singulair] 10 mg PO DAILY 04/17/19 Fluticasone Prop 0.05% Nasal [Flonase Nasal [place]] 1 spray BNAS DAILY 10 Days #1 spray 05/07/19 Methylphenidate HCl [Methylphenidate Hydrochlo] 10 mg PO DAILY 05/07/19 Cephalexin Monohydrate [Keflex] 500 mg PO BID 5 Days #10 cap 06/11/19 Tramadol HCl 50 mg PO Q6H PRN 7 Days #10 tab 06/11/19 Benzonatate Perles [Tessalon Perles] 100 mg PO Q6H PRN #20 cap 07/13/19 Prednisone 60 mg PO DAILY 5 Days #15 tab 07/13/19 Cephalexin Monohydrate [Keflex] 500 mg PO BID 5 Days #10 cap 11/25/19 Steve/Poly/Hc Otic Susp [Cortisporin Otic Susp] 4 drop LEFT_EAR TID 7 Days #10 ml 12/12/19 Review of Systems - Review of Systems Review of Systems: 12/12/19 22:17 as per HPI All other Systems: Reviewed and Negative Past Medical History (General) - Patient Medical History Hx Seizures: No Hx Stroke: No Hx Dementia: No Hx Asthma: No Hx of COPD: No Hx Cardiac Disorders: No Hx Congestive Heart Failure: No Hx Pacemaker: No Hx Hypertension: No Hx Thyroid Disease: No Hx Diabetes: No Hx Gastroesophageal Reflux: No Hx Renal Disease: No Hx Cancer: No Hx of HIV: No Hx Hepatitis C: No Hx MRSA: No - Vaccination History Hx Tetanus, Diphtheria Vaccination: No Hx Influenza Vaccination: No Hx Pneumococcal Vaccination: No - Social History Hx Tobacco Use: Yes Hx Chewing Tobacco Use: No Hx Alcohol Use: No Hx Substance Use: No Hx Substance Use Treatment: No Hx Depression: No Hx Physical Abuse: No Hx Emotional Abuse: No Hx Suspected Abuse: No - Female History Hx Last Menstrual Period: 09/14/18 Patient : No Expected Date of Delivery:: 01/22/15 Family Medical History - Family History Maternal Grandparents Family History: No Known Living Status: Still Living Hx Family Hypertension: Yes Hx Family Diabetes: Yes - type 2 Hx Family;Other: Pt has no other known historys Father Living Status: Still Living Hx Family;Other: leukemia] Mother Family History: No Known Physical Exam - Physical Exam General Appearance: Alert, Comfortable, No apparent distress Eye Exam: bilateral normal Ears, Nose, Throat: other - Left ear canal with mild erythema without discharge/bleeding/swelling, moderate pain with manipulation of tragus, BL TM's appear normal Neck: non-tender, full range of motion Respiratory: lungs clear, normal breath sounds, no respiratory distress, no accessory muscle use Cardiovascular/Chest: normal peripheral pulses, regular rate, rhythm, no edema, no murmur Peripheral Pulses: radial,right: 2+, radial,left: 2+ Gastrointestinal/Abdominal: non tender, soft Back Exam: normal inspection, no CVA tenderness, no vertebral tenderness Extremity: normal range of motion, non-tender, normal inspection Neurologic: no motor/sensory deficits, alert, normal mood/affect, oriented x 3 Skin Exam: normal color, warm/dry Progress - Progress Progress: 12/12/19 22:18 Acute left ear pain -appears c/w mild otitis externa. Consider also toothache, otitis media, ruptured TM, other -will place on otic Cortisporin 4 drops TID x7 days, first dose here. Advised to prevent moisture getting into the ear -dc home in good condition, f/u with PCP Edgar Ramos MD Billing #[id number] Departure - Departure Clinical Impression: Otitis externa Qualifiers: Otitis externa type: swimmer's ear Chronicity: acute Laterality: left Qualified Code(s): H60.332 - Swimmer's ear, left ear Time of Disposition: 22:10 Disposition: Discharge to Home or Self Care Condition: Good Instructions: Outer Ear Infection (DC) Diet: resume usual diet Activity: increase activity as tolerated Referrals: Buster Lou MD [Primary Care Provider] - 1-2 Weeks Prescriptions: Steve/Poly/Hc Otic Susp [Cortisporin Otic Susp] 4 drop LEFT_EAR TID 7 Days #10 ml Home Medications: Ambulatory Orders busPIRone HCL [Buspar] 7.5 mg PO BID 08/13/18 Citalopram Hydrobromide [Citalopram] 20 mg PO DAILY 03/12/19 Montelukast [Singulair] 10 mg PO DAILY 04/17/19 Fluticasone Prop 0.05% Nasal [Flonase Nasal [place]] 1 spray BNAS DAILY 10 Days #1 spray 05/07/19 Methylphenidate HCl [Methylphenidate Hydrochlo] 10 mg PO DAILY 05/07/19 Cephalexin Monohydrate [Keflex] 500 mg PO BID 5 Days #10 cap 06/11/19 Tramadol HCl 50 mg PO Q6H PRN 7 Days #10 tab 06/11/19 Benzonatate Perles [Tessalon Perles] 100 mg PO Q6H PRN #20 cap 07/13/19 Prednisone 60 mg PO DAILY 5 Days #15 tab 07/13/19 Cephalexin Monohydrate [Keflex] 500 mg PO BID 5 Days #10 cap 11/25/19 Steve/Poly/Hc Otic Susp [Cortisporin Otic Susp] 4 drop LEFT_EAR TID 7 Days #10 ml 12/12/19 Additional Instructions: Apply the antibiotic eardrops as directed. Avoid any moisture getting into the ear in order to prevent worsening of infection. Continue taking tylenol and ibuprofen as needed for pain. Return if concerning symptoms develop such as severe ear pain, bleeding from the ear, fever >100.4 F, etc... Follow up with your primary care doctor in 1-2 weeks for repeat evaluation or sooner as needed.
[2019-12-12 21:19] VITALS: TEMP 97.2
[2019-12-12 22:09] VITALS: BP 126/68; O2SAT 98
[2019-12-12] MEDS ORDERED: NEO/POLY/HC OTIC SUSP 10 ML BTTL LEFT_EAR ONE (22:09)
== END 2019-12-12 22:18 | disposition home or self-care (01) ==
LOC: ER 21:06
DX: H60.332 Swimmer's ear, left ear (principal); J45.909 Unspecified asthma, uncomplicated; F41.9 Anxiety disorder, unspecified; Z87.891 Personal history of nicotine dependence; Z79.899 Other long term (current) drug therapy; Z88.0 Allergy status to penicillin